=== PATIENT | female | born 1935 | race Caucasian/White ===

== ENCOUNTER 2018-09-06 10:59 | Emergency (ER) | payer OTHER ==
[2018-09-06 11:45] LABS: Absolute Monocytes 0.7 K/uL (0.1-1.3); Absolute Neutrophil 8.7 K/uL (1.8-8.0); Basophils % 0.4 % (0-1.3); Eosinophils % 0.7 % (0-4.4); Hematocrit 39.9 % (36.0-45.0); Lymphocytes % 9.7 % (15.3-44.8); MCH 31.3 pg (27.0-35.0); MCV 90.6 fL (80-100); MPV 8.3 fL (7.6-11.3); Monocytes % 6.2 % (3.3-12.3)
--- NOTE | 2018-09-06 12:31 | RAD REPORT ---
EXAM DESCRIPTION: CT - Head Brain Wo Cont - 09/06/2018 11:39 am CLINICAL HISTORY: TRAUMA Fall, head injury. COMPARISON: No comparisons TECHNIQUE: All CT scans are performed using dose optimization technique as appropriate and may inclu de automated exposure control or mA/KV adjustment according to patient size. 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 The paranasal sinuses and mastoids are clear. Right temporal craniectomy is present with hardware rig ht temporal craniotomy. IMPRESSION: No acute intracranial abnormality. 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
--- NOTE | 2018-09-06 12:45 | RAD REPORT ---
EXAM DESCRIPTION: RAD - Ankle Left 3 View - 09/06/2018 12:30 pm CLINICAL HISTORY: PAIN Fall, ankle pain COMPARISON: No comparisons FINDINGS: Diffuse osteopenia is seen. Lucency is seen in the posterior aspect of the calcaneus. This is doubtful to be clinically significant, however correlation with point tenderness in the posterior heel region is advised.
--- NOTE | 2018-09-06 12:53 | RAD REPORT ---
EXAM DESCRIPTION: RAD - Hand Left 3 View - 09/06/2018 12:30 pm CLINICAL HISTORY: PAIN History of fall COMPARISON: No comparisons FINDINGS: Diffuse osteopenia is seen. No acute fracture or dislocation seen.
--- NOTE | 2018-09-06 13:11 | ER ---
Nurse's Notes [facility] Name: Jazmine Winchester Age: 83 yrs Sex: Female : 1935 Arrival Date: 09/06/2018 Time: 11:02 Bed 19 Private MD: Diagnosis: Fall on same level from slipping, tripping and stumbling;Abrasion of left hand;Contusion of left hand Presentation: 09/06 11:02 Presenting complaint: Patient states: Tripped by cat while walking on concrete today at aj 0900. Patient reports falling onto bottom and scraping left 3 rd, 4 th, and 5 th knuckles on concrete. Band aids placed NURSING ADMIN. Denies hitting head or LOC. Patient denies pain. Care prior to arrival: None. Mechanism of Injury: Fall from standing position. Trauma event details: Injury occurred in the [facility], Injury occurred: at home. Injury occurred: September 06, 2018 Injury occurred at: 09:00. 11:02 Acuity: FRANCES 4 11:02 Method Of Arrival: EMS: [facility] 11:06 Transition of care: patient was not received from another setting of care. Onset of symptoms was September 06, 2018. Risk Assessment: Do you want to hurt yourself or someone else? Patient reports no desire to harm self or others. Initial Sepsis Screen: Does the patient meet any 2 criteria? No. Patient's initial sepsis screen is negative. Does the patient have a suspected source of infection? No. Patient's initial sepsis screen is negative. Trauma Activation: Not Applicable Physician: ED Physician; Name: ; Notified At: ; Arrived At: Physician: General Surgeon; Name: ; Notified At: ; Arrived At: Physician: Radiology; Name: ; Notified At: ; Arrived At: Physician: Respiratory; Name: ; Notified At: ; Arrived At: Physician: Lab; Name: ; Notified At: ; Arrived At: Historical: - Allergies: 11: No Known Allergies; aj - Home Meds: 11:07 Lisinopril Oral [Active]; aspirin 81 mg Oral TbEC 1 tab once daily [Active]; aj - PMHx: 11:07 Osteoporosis; Hypertension; CVA; Left side; aj - Immunization history: Last tetanus immunization: - up to date. - Social history:: Smoking status: Patient/guardian denies using tobacco. - Ebola Screening: : Patient negative for fever greater than or equal to 101.5 degrees Fahrenheit, and additional compatible Ebola Virus Disease symptoms Patient denies exposure to infectious person Patient denies travel to an Ebola-affected area in the 21 days before illness onset No symptoms or risks identified at this time. Screenin:02 Abuse screen: Denies threats or abuse. Denies injuries from another. Tuberculosis aj screening: No symptoms or risk factors identified. 14:09 Nutritional screening: No deficits noted. Fall Risk Fall in past 12 months (25 points). aj Primary Survey: 11:02 A: Airway: patent. Breathing/Chest: Respiratory pattern: regular, Respiratory effort: aj spontaneous, unlabored. Circulation: Skin color: pink, Skin temperature: warm, dry. Disability Alert. 12:00 Reassessment Airway Airway Patent Breathing/Chest Respiratory pattern Regular aj Respiratory effort Spontaneous Unlabored Circulation Color Black Disability Alert. Assessment: 11:02 General: Appears in no apparent distress. comfortable, Behavior is calm, cooperative, aj appropriate for age. Pain: Denies pain. Neuro: Level of Consciousness is awake, alert, obeys commands, Oriented to person, place, time, situation, Appropriate for age Weakness Left side weakness from previous CVA. Speech is normal. Respiratory: Airway is patent Respiratory effort is even, unlabored, Respiratory pattern is regular, symmetrical. Derm: Skin is intact, is healthy with good turgor, Skin is pink, warm \T\ dry. normal. Injury Description: Abrasion sustained to dorsal aspect of middle phalanx of left middle finger, dorsal aspect of middle phalanx of left ring finger and dorsal aspect of middle phalanx of left little finger. 12:30 Reassessment: Patient appears in no apparent distress at this time. No changes from aj previously documented assessment. Patient and/or family updated on plan of care and expected duration. Pain level reassessed. Patient is alert, oriented x 3, equal unlabored respirations, skin warm/dry/pink. Patient denies pain at this time. Vital Signs: 11:02 BP 126 / 58; Pulse 77; Resp 19; Temp 98.6; Pulse Ox 100% on R/A; Weight 65.77 kg; aj Height 5 ft. 2 in. (157.48 cm); 12:00 BP 123 / 61; Pulse 76; Resp 19; Pulse Ox 99% on R/A; aj 14:08 BP 127 / 79; Pulse 81; Resp 20; Pulse Ox 99% on R/A; aj 11:02 Body Mass Index 26.52 (65.77 kg, 157.48 cm) aj Milly Coma Score: 11:02 Eye Response: spontaneous(4). Verbal Response: oriented(5). Motor Response: obeys aj commands(6). Total: 15. Trauma Score (Adult): 11:02 Eye Response: spontaneous(1); Verbal Response: oriented(1); Motor Response: obeys aj commands(2); Systolic BP: > 89 mm Hg(4); Respiratory Rate: 10 to 29 per min(4); Sachse Score: 15; Trauma Score: 12 ED Course: 11:02 Patient arrived in ED. aj 11:02 Patient has correct armband on for positive identification. Bed in low position. Side aj rails up X 1. Adult w/ patient. 11:02 Patient maintains SpO2 saturation greater than 95% on room air. aj 11:04 Triage completed. aj 11:07 Patient placed in an exam room, on a stretcher, on pulse oximetry. aj 11:12 Sangeetha Ricketts FNP-C is PHCP. kb 11:12 Arash Alba MD is Attending Physician. kb 11:22 Kristi Blackwood, MOMO is Primary Nurse. aj 11:40 CT Head Brain wo Cont In Process Unspecified. EDMS 11:41 CT completed. Patient tolerated procedure well. Patient moved to CT. Patient moved back vr from CT. 12:29 X-ray completed. Portable x-ray completed in exam room. Patient tolerated procedure ml well. 12:31 Hand Left 3 View XRAY In Process Unspecified. EDMS 12:31 Ankle Left 3 View XRAY In Process Unspecified. EDMS 14:08 No provider procedures requiring assistance completed. Patient did not have IV access aj during this emergency room visit. Administered Medications: No medications were administered Intake: 14:09 PO: 0ml; Total: 0ml. aj Outcome: 13:10 Discharge ordered by . kb 14:08 Discharged to home ambulatory, with family. aj 14:08 Condition: good 14:08 Discharge instructions given to patient, family, Instructed on discharge instructions, follow up and referral plans. wound care, Demonstrated understanding of instructions, follow-up care, wound care. 14:09 Patient's length of stay was not longer than 2 hours. aj 14:09 Patient left the ED. aj Signatures: Dispatcher [employer] Sangeetha Chávez, LYDIA MUNOZ-Kristi Hameed, RN RN Andreia Boss Victoria vr
--- NOTE | 2018-09-06 13:11 | EDPHYS ---
Physician Documentation [facility] Name: Jazmine Winchester Age: 83 yrs Sex: Female : 1935 Arrival Date: 09/06/2018 Time: 11:02 Bed 19 Private MD: ED Physician Arash Alba HPI: 09/06 11:13 This 83 yrs old Female presents to ER via EMS with complaints of Fall Injury. kb 11:13 Details of fall: The patient fell from an upright position, while walking. Onset: The kb symptoms/episode began/occurred this morning. Associated injuries: The patient sustained left hand, abrasion, ecchymosis, swelling, left medial ankle, ecchymosis. Severity of symptoms: At their worst the symptoms were moderate, in the emergency department the symptoms are unchanged. The patient has not experienced similar symptoms in the past. The patient has not recently seen a physician. Pt reports she was walking out to get the paper, tripped over the cat and fell. Denies hitting head or LOC. Pt has residual left-sided deficits from previous CVA. . Historical: - Allergies: 11:07 No Known Allergies; aj - Home Meds: 11:07 Lisinopril Oral [Active]; aspirin 81 mg Oral TbEC 1 tab once daily [Active]; aj - PMHx: 11:07 Osteoporosis; Hypertension; CVA; Left side; aj - Immunization history: Last tetanus immunization: - up to date. - Social history:: Smoking status: Patient/guardian denies using tobacco. - Ebola Screening: : Patient negative for fever greater than or equal to 101.5 degrees Fahrenheit, and additional compatible Ebola Virus Disease symptoms Patient denies exposure to infectious person Patient denies travel to an Ebola-affected area in the 21 days before illness onset No symptoms or risks identified at this time. ROS: 13:07 Constitutional: Negative for fever, chills, and weight loss, Eyes: Negative for injury, kb pain, redness, and discharge, ENT: Negative for injury, pain, and discharge, Neck: Negative for injury, pain, and swelling, Cardiovascular: Negative for chest pain, palpitations, and edema, Respiratory: Negative for shortness of breath, cough, wheezing, and pleuritic chest pain, Abdomen/GI: Negative for abdominal pain, nausea, vomiting, diarrhea, and constipation, Back: Negative for injury and pain, : Negative for injury, bleeding, discharge, and swelling, MS/Extremity: Negative for injury and deformity, Neuro: Negative for headache, weakness, numbness, tingling, and seizure. 13:07 Skin: Positive for abrasion(s), ecchymosis, swelling, of the dorsal aspect of middle phalanx of left little finger and dorsal aspect of middle phalanx of left ring finger and dorsal aspect of middle phalanx of left middle finger. Exam: 13:07 Constitutional: This is a well developed, well nourished patient who is awake, alert, kb and in no acute distress. Head/Face: Normocephalic, atraumatic. Eyes: Pupils equal round and reactive to light, extra-ocular motions intact. Lids and lashes normal. Conjunctiva and sclera are non-icteric and not injected. Cornea within normal limits. Periorbital areas with no swelling, redness, or edema. ENT: Nares patent. No nasal discharge, no septal abnormalities noted. Tympanic membranes are normal and external auditory canals are clear. Oropharynx with no redness, swelling, or masses, exudates, or evidence of obstruction, uvula midline. Mucous membranes moist. Neck: Trachea midline, no thyromegaly or masses palpated, and no cervical lymphadenopathy. Supple, full range of motion without nuchal rigidity, or vertebral point tenderness. No Meningismus. Chest/axilla: Normal chest wall appearance and motion. Nontender with no deformity. No lesions are appreciated. Cardiovascular: Regular rate and rhythm with a normal S1 and S2. No gallops, murmurs, or rubs. Normal PMI, no JVD. No pulse deficits. Respiratory: Lungs have equal breath sounds bilaterally, clear to auscultation and percussion. No rales, rhonchi or wheezes noted. No increased work of breathing, no retractions or nasal flaring. Abdomen/GI: Soft, non-tender, with normal bowel sounds. No distension or tympany. No guarding or rebound. No evidence of tenderness throughout. Back: No spinal tenderness. No costovertebral tenderness. Full range of motion. MS/ Extremity: Pulses equal, no cyanosis. Neurovascular intact. Full, normal range of motion. 13:07 Skin: injury, abrasion(s), small abrasion noted, of the dorsal aspect of middle phalanx of left little finger and dorsal aspect of middle phalanx of left ring finger and dorsal aspect of middle phalanx of left middle finger, contusion(s), that are superficial, of the dorsal aspect of middle phalanx of left ring finger and dorsal aspect of middle phalanx of left middle finger. 13:07 Neuro: Exam negative for acute changes. Vital Signs: 11:02 BP 126 / 58; Pulse 77; Resp 19; Temp 98.6; Pulse Ox 100% on R/A; Weight 65.77 kg; aj Height 5 ft. 2 in. (157.48 cm); 12:00 BP 123 / 61; Pulse 76; Resp 19; Pulse Ox 99% on R/A; aj 14:08 BP 127 / 79; Pulse 81; Resp 20; Pulse Ox 99% on R/A; aj 11:02 Body Mass Index 26.52 (65.77 kg, 157.48 cm) aj Milly Coma Score: 11:02 Eye Response: spontaneous(4). Verbal Response: oriented(5). Motor Response: obeys aj commands(6). Total: 15. Trauma Score (Adult): 11:02 Eye Response: spontaneous(1); Verbal Response: oriented(1); Motor Response: obeys aj commands(2); Systolic BP: > 89 mm Hg(4); Respiratory Rate: 10 to 29 per min(4); Milly Score: 15; Trauma Score: 12 MDM: 11:12 Patient medically screened. kb 13:08 Data reviewed: vital signs, nurses notes. Data interpreted: Pulse oximetry: on room air kb is 100 %. Interpretation: normal. Counseling: I had a detailed discussion with the patient and/or guardian regarding: the historical points, exam findings, and any diagnostic results supporting the discharge/admit diagnosis, lab results, radiology results, the need for outpatient follow up, a family practitioner, to return to the emergency department if symptoms worsen or persist or if there are any questions or concerns that arise at home. 09/06 11:22 Order name: CBC with Diff; Complete Time: 11:52 kb 09/06 11:22 Order name: Basic Metabolic Panel; Complete Time: 11:55 kb 09/06 11:12 Order name: Hand Left 3 View XRAY; Complete Time: 13:06 kb 09/06 11:12 Order name: Ankle Left 3 View XRAY; Complete Time: 12:46 kb 09/06 11:22 Order name: CT Head Brain wo Cont; Complete Time: 12:41 kb Administered Medications: No medications were administered Disposition: 15:49 Co-signature as Attending Physician, Arash Alba MD. rn Disposition: 09/06/18 13:10 Discharged to Home. Impression: Fall on same level from slipping, tripping and stumbling, Abrasion of left hand, Contusion of left hand. - Condition is Stable. - Discharge Instructions: Hand Contusion, [id number], Abrasion, [id number], Fall Prevention in the Home, [id number]. - Medication Reconciliation Form, Thank You Letter, Antibiotic Education, Prescription Opioid Use form. - Follow up: Emergency Department; When: As needed; Reason: Worsening of condition. Follow up: Private Physician; When: 2 - 3 days; Reason: Recheck today's complaints, Continuance of care, Re-evaluation by your physician. Signatures: Dispatcher [employer] EDSangeetha Whittaker, TAMMY-C PRINCIPAL SYSTEMS ENGINEER-Kristi Hameed RN RN Arash Metcalf MD MD psych rn: (The following items were deleted from the chart) 13:10 13:10 09/06/2018 13:10 Discharged to Home. Impression: Fall on same level from kb slipping, tripping and stumbling; Abrasion of left hand. Condition is Stable. Forms are Medication Reconciliation Form, Thank You Letter, Antibiotic Education, Prescription Opioid Use. Follow up: Emergency Department; When: As needed; Reason: Worsening of condition. Follow up: Private Physician; When: 2 - 3 days; Reason: Recheck today's complaints, Continuance of care, Re-evaluation by your physician. kb 14:07 11:22 Urine Dipstick-Ancillary ordered. kb aj 14:09 13:10 09/06/2018 13:10 Discharged to Home. Impression: Fall on same level from aj slipping, tripping and stumbling; Abrasion of left hand; Contusion of left hand. Condition is Stable. Forms are Medication Reconciliation Form, Thank You Letter, Antibiotic Education, Prescription Opioid Use. Follow up: Emergency Department; When: As needed; Reason: Worsening of condition. Follow up: Private Physician; When: 2 - 3 days; Reason: Recheck today's complaints, Continuance of care, Re-evaluation by your physician. kb
== END 2018-09-06 14:09 | disposition home or self-care (01) ==
LOC: ER 10:59
DX: S60.512A Abrasion of left hand, initial encounter (principal); S60.222A Contusion of left hand, initial encounter; W18.09XA Striking against other object with subsequent fall, initial encounter; Y93.89 Activity, other specified; Y92.009 Unspecified place in unspecified non-institutional (private) residence as the place of occurrence of the external cause; Z79.82 Long term (current) use of aspirin; Z86.73 Personal history of transient ischemic attack (TIA), and cerebral infarction without residual deficits; I10 Essential (primary) hypertension
CPT/HCPCS: 36415; 70450; 80048; 85025; 99284

== ENCOUNTER 2021-03-16 08:33 | Inpatient (IN) | payer OTHER ==
--- NOTE | 2021-03-16 08:55 | RAD REPORT ---
EXAM DESCRIPTION: CT - Ct Stroke Brain Wo Cont - 03/16/2021 8:42 am CLINICAL HISTORY: SYNCOPE COMPARISON: Head Brain Wo Cont dated 09/06/2018 TECHNIQUE: Axial 5 millimeter thick images of the head were obtained without IV contrast. All CT scans are performed using dose optimization technique as appropriate and may include automated exposure control or mA/KV adjustment according to patient size. FINDINGS: No intracranial hemorrhage, mass, or cerebral edema. No acute cortical based infarction id entified. No cortical edema or sulcal effacement. There is a large area of gliosis or postoperative c hange involving substantial portion of the right temporal lobe and the right frontal lobe. Aneurysm c lip is present in the sylvian fissure region. Postsurgical changes are present to the lateral skull a t this level. Patient has underlying mild for age atrophy. Chronic ischemic changes are present. Calloway matter-white matter differentiation is preserved.Ventricles are in proportion to volume loss. Visualized portions of the mastoid air cells, paranasal sinuses, and orbits are unremarkable. Findings telephoned to Dr Rowland 8:50 a.m.. IMPRESSION: No CT evidence of acute intracranial process. Nonacute findings are detailed in the body of the report. No clear change from 2018.
--- NOTE | 2021-03-16 08:56 | RAD REPORT ---
EXAM DESCRIPTION: RAD - Chest Single View - 03/16/2021 8:50 am CLINICAL HISTORY: Stroke protocol chest film COMPARISON: None TECHNIQUE: AP portable chest image was obtained 03/16/2021 8:50 am . FINDINGS: Lungs are clear. Heart and vasculature are normal. Right hemidiaphragm elevation noted. Hi lar regions are within normal range. No measurable pleural effusion and no pneumothorax. No acute bon y abnormality seen. No acute aortic findings suspected. IMPRESSION: No acute cardiopulmonary process.
[2021-03-16] MEDS ORDERED: NA CHLORIDE 0.9% 1,000 ML ONE (09:16)
[2021-03-16 09:44] LABS: Amylase 57 U/L (25-115); BUN Blood Urea Nitrogen 18 mg/dL (7-18); Bicarbonate 22 mmol/L (21-32); Creatine Phosphokinase 72 U/L (26-192); Glucose Level 175 mg/dL (74-106); Potassium 3.5 mmol/L (3.5-5.1); Sodium Level 140 mmol/L (136-145); Troponin (Emerg Dept Use Only) < 0.02 ng/mL (0.0-0.045)
--- NOTE | 2021-03-16 10:01 | EDPHYS ---
Physician Documentation [facility] Name: Jazmine Winchester Age: 85 yrs Sex: Female : 1935 Arrival Date: 03/16/2021 Time: 08:36 Bed 2 Private MD: ED Physician Maki Rowland HPI: 03/16 09:27 This 85 yrs old Female presents to ER via Unassigned with complaints of ma2 Syncope. 09:27 The patient has experienced syncope. Onset: The symptoms/episode began/occurred ma2 suddenly, 1 hour(s) ago. Associated signs and symptoms: Pertinent positives: dizziness, Pertinent negatives: blurred vision, confusion, diarrhea, headache. The patient has experienced a previous episode. hx of stroke, had syncope 1 hour ago, and was aphasic for 30 min and now she is back to normal . Historical: - Allergies: 09:32 No Known Allergies; bp - Home Meds: 09:32 aspirin 81 mg Oral TbEC 1 tab once daily [Active]; lisinopril Oral [Active]; bp - PMHx: 09:32 CVA; Left side; Hypertension; Osteoporosis; bp - Immunization history:: Adult Immunizations up to date. - Social history:: Smoking status: Patient denies any tobacco usage or history of. - Family history:: not pertinent. ROS: 09:27 Constitutional: Negative for fever, chills, and weight loss. ma2 09:27 All other systems are negative. Exam: 09:27 Abdomen/GI: Exam negative for acute changes. ma2 09:27 Constitutional: This is a well developed, well nourished patient who is awake, alert, and in no acute distress. Head/Face: Normocephalic, atraumatic. Chest/axilla: Normal chest wall appearance and motion. Nontender with no deformity. No lesions are appreciated. Cardiovascular: Regular rate and rhythm with a normal S1 and S2. No gallops, murmurs, or rubs. Normal PMI, no JVD. No pulse deficits. Respiratory: Lungs have equal breath sounds bilaterally, clear to auscultation and percussion. No rales, rhonchi or wheezes noted. No increased work of breathing, no retractions or nasal flaring. Abdomen/GI: Soft, non-tender, with normal bowel sounds. No distension or tympany. No guarding or rebound. No evidence of tenderness throughout. Skin: Warm, dry with normal turgor. Normal color with no rashes, no lesions, and no evidence of cellulitis. MS/ Extremity: Pulses equal, no cyanosis. Neurovascular intact. Full, normal range of motion. Neuro: Awake and alert, GCS 15, oriented to person, place, time, and situation. Cranial nerves II-XII grossly intact. Motor strength 5/5 in both rightl extremities. left weakness + however residual from prior stroke. Sensory grossly intact. gait not tested Vital Signs: 08:40 BP 113 / 79; Pulse 75; Resp 16; Temp 98; Pulse Ox 94% on R/A; bp 09:40 BP 100 / 58; Pulse 69; Resp 15; Pulse Ox 96% on R/A; bp 10:10 BP 116 / 61; Pulse 65; Resp 19; Pulse Ox 99% ; bp 12:00 BP 127 / 78; Pulse 62; Resp 16; Pulse Ox 97% ; bp 13:00 BP 119 / 59; Pulse 58; Resp 14; Pulse Ox 98% ; bp NIH Stroke Scale Scores: 08:40 NIHSS Score: 11 bp MDM: 09:04 Patient medically screened. ma2 09:27 Differential Diagnosis: cardiac arrhythmia, drug effect, emotional response, idiopathic ma2 syncope, vasovagal episode. 09:58 Data reviewed: vital signs, nurses notes, EMS record. Counseling: I had a detailed ma2 discussion with the patient and/or guardian regarding: the historical points, exam findings, and any diagnostic results supporting the discharge/admit diagnosis, the presence of at least one elevated blood pressure reading (>120/80) during this emergency department visit, the need for further work-up and treatment in the hospital. Response to treatment: the patient's symptoms have markedly improved after treatment. 10:01 ED course: stroke alert was called initially on this patient as she was aphasic after ma2 the syncope, however patient is awake alert talking and rapidly improving symptoms.. discussed with dr. christie, and dr. gutierrez. 10:02 ED course: ct head unremarkable.. patient is not a tpa canditate d/t rapidly improving ma2 sympotms . 03/16 08:39 Order name: Troponin (emerg Dept Use Only); Complete Time: 09:55 ma2 03/16 08:39 Order name: CPK; Complete Time: 09:55 [facility] 03/16 08:39 Order name: Amylase, Serum; Complete Time: 09:55 [facility] 03/16 08:39 Order name: Basic Metabolic Panel; Complete Time: 09:55 hi03/16 08:39 Order name: CBC with Diff [facility] 03/16 08:39 Order name: Protime (+inr) [facility] 03/16 08:39 Order name: Ptt, Activated [facility] 03/16 09:01 Order name: COVID-19 : Document "Date of Symptom Onset" if Symptomatic. hi03/16 09:02 Order name: [facility] 03/16 10:11 Order name: CKMB Creatine Kinase MB [facility] 03/16 10:11 Order name: CKMB Creatine Kinase MB [facility] 03/16 10:11 Order name: Creatine Phosphokinase [facility] 03/16 10:11 Order name: Creatine Phosphokinase [facility] 03/16 10:11 Order name: Lipid Profile [facility] 03/16 08:39 Order name: CT Stroke Brain w/o Contrast; Complete Time: 09:55 [facility] 03/16 08:39 Order name: Stroke CXR 1 View; Complete Time: 09:55 [facility] 03/16 08:39 Order name: EKG; Complete Time: 08:40 [facility] 03/16 08:39 Order name: Accucheck; Complete Time: 09:12 [facility] 03/16 08:39 Order name: Cardiac monitoring; Complete Time: 08:53 [facility] 03/16 08:39 Order name: EKG - Nurse/Tech; Complete Time: 09:12 [facility] 03/16 08:39 Order name: IV Saline Lock; Complete Time: 08:52 [facility] 03/16 10:11 Order name: NPO [facility] 03/16 10:11 Order name: NPO [facility] 03/16 10:11 Order name: Lipid Profile [facility] 03/16 10:11 Order name: Troponin I [facility] 03/16 10:11 Order name: Troponin I [facility] 03/16 10:12 Order name: NPO [facility] 03/16 11:11 Order name: SARS-COV-2 RT PCR [facility] 03/16 08:39 Order name: Labs collected and sent; Complete Time: 09:12 [facility] 03/16 08:39 Order name: NPO; Complete Time: 08:51 03/16 08:39 Order name: O2 Per Protocol; Complete Time: 08:51 03/16 08:39 Order name: O2 Sat Monitoring; Complete Time: 08:51 03/16 08:39 Order name: Stroke Swallow Screen; Complete Time: 10:10 2 03/16 08:44 Order name: Urine Dipstick-Ancillary (obtain specimen); Complete Time: 08:51 ma Administered Medications: 09:00 Drug: NS 0.9% 1000 ml Route: IV; Rate: 1 bolus; Site: right antecubital; bp 10:30 Follow up: IV Status: Completed infusion; IV Intake: 1000ml bp 10:10 Drug: NS 0.9% 1000 ml Route: IV; Rate: 1 bolus; Site: right antecubital; bp 10:30 Follow up: IV Status: Completed infusion; IV Intake: 1000ml bp Disposition: 03/16/21 10:00 Hospitalization ordered by Jarred Gutierrez for Inpatient Admission. Preliminary diagnosis are Syncope and collapse, Altered mental status, unspecified. - Bed requested for Telemetry/MedSurg (Inpatient). - Status is Inpatient Admission. bp - Condition is Stable. - Problem is new. - Symptoms are unchanged. NIH Stroke Scale - NIH Stroke Score Date: 03/16/2021 Time: 08:40 Total Score = 11 1a. Level of Consciousness (LOC) - 1(Not Alert) 1b. Level of Consciousness (LOC) (Year \\T\\ Age) - 2(Neither) 1c. LOC Commands (Open \\T\\ Closes Eyes/Machine Setter Supervisor) - 0(Both) 2. Best Gaze (Lateral Gaze Paresis) - 0(Normal) 3. Visual Field Loss - 0(No visual loss) 4. Facial Palsy - 0(Normal) 5a. Left Arm: Motor (10-second hold) - 3(No effort against gravity) 5b. Right Arm: Motor (10-second hold) - 1(Drift) 6a. Left Leg: Motor (5-second hold - always test supine) - 3(No effort against gravity) 6b. Right Leg: Motor (5-second hold - always test supine) - 1(Drift) 7. Limb Ataxia (finger/nose \\T\\ heel/liao - test with eyes open) - 0(Absent) 8. Sensory Loss (pinprick arms/legs/face) - 0(Normal) 9. Best Language: Aphasia (description/naming/reading) - 0(No aphasia) 10. Dysarthria (speech clarity - read or repeat words) - 0(Normal) 11. Extinction and Inattention (visual/tactile/auditory/spatial/personal) - 0(No abnormality) Initials: bp Signatures: Dispatcher [employer] EDMS Aby Braun RN RN dw Thompson, Moriah mt Peltier, Brian, RN RN bp Maki Rowland MD MD ma2 Corrections: (The following items were deleted from the chart) 12:01 10:00 Hospitalization Ordered by Jarred Gutierrez MD for Inpatient Admission. dw Preliminary diagnosis is Syncope and collapse; Altered mental status, unspecified. Bed requested for Telemetry/MedSurg (Inpatient). Status is Inpatient Admission. Condition is Stable. Problem is new. Symptoms are unchanged. ma2 13:47 12:01 03/16/2021 10:00 Hospitalization Ordered by Jarred Gutierrez MD for Inpatient bp Admission. Preliminary diagnosis is Syncope and collapse; Altered mental status, unspecified. Bed requested for Telemetry/MedSurg (Inpatient). Status is Inpatient Admission. Condition is Stable. Problem is new. Symptoms are unchanged. dw
--- NOTE | 2021-03-16 10:01 | ER ---
Nurse's Notes [facility] Name: Jazmine Winchester Age: 85 yrs Sex: Female : 1935 Arrival Date: 03/16/2021 Time: 08:36 Bed 2 Private MD: Diagnosis: Syncope and collapse;Altered mental status, unspecified Presentation: 03/16 08:40 Chief complaint: EMS states: SYNCOPE WITH SUBSEQUENT AMS AT 0730. Coronavirus screen: bp At this time, the client does not indicate any symptoms associated with coronavirus-19. Ebola Screen: No symptoms or risks identified at this time. Initial Sepsis Screen: Does the patient meet any 2 criteria? Altered Mental Status. No. Patient's initial sepsis screen is negative. Does the patient have a suspected source of infection? No. Patient's initial sepsis screen is negative. Risk Assessment: Do you want to hurt yourself or someone else? Patient reports no desire to harm self or others. Onset of symptoms was March 16, 2021 at 07:30. Care prior to arrival: IV initiated. 20 GA, Glucose check: 136. 08:40 Method Of Arrival: EMS: [facility] bp 08:40 Acuity: FRANCES 2 bp Triage Assessment: 09:15 General: Appears in no apparent distress. comfortable, obese, Behavior is cooperative, bp appropriate for age, PT RETURNED FROM CT. 09:15 Pain: Denies pain. EENT: No deficits noted. Neuro: Level of Consciousness is awake, bp alert, obeys commands, Reports a syncopal episode. Cardiovascular: Rhythm is sinus rhythm. Respiratory: Breath sounds are coarse. GI: No signs and/or symptoms were reported involving the gastrointestinal system. : No signs and/or symptoms were reported regarding the genitourinary system. Derm: No deficits noted. Musculoskeletal: Circulation, motion, and sensation intact. Range of motion: intact in all extremities. Historical: - Allergies: 09:32 No Known Allergies; bp - Home Meds: 09:32 aspirin 81 mg Oral TbEC 1 tab once daily [Active]; lisinopril Oral [Active]; bp - PMHx: 09:32 CVA; Left side; Hypertension; Osteoporosis; bp - Immunization history:: Adult Immunizations up to date. - Social history:: Smoking status: Patient denies any tobacco usage or history of. - Family history:: not pertinent. Screenin:36 Abuse screen: Denies threats or abuse. Denies injuries from another. Nutritional bp screening: No deficits noted. Tuberculosis screening: No symptoms or risk factors identified. Fall Risk Gait- Mental Status- Oriented to own ability (0 pts). Assessment: 09:36 General: SEE TRIAGE NOTE. PT RETURNED FROM CT. Neuro: Level of Consciousness is awake, bp obeys commands, lethargic, Oriented to person, place. Cardiovascular: Rhythm is sinus rhythm. 09:40 Reassessment: PT LEVEL OF CONSCIOUSNESS IMPROVED, PT NOW VERBAL, AOx2, FOLLOWING bp COMMANDS. 10:10 Reassessment: ADMIT INITIATED. bp 10:27 Reassessment: SECOND RECOLLECT REQUESTED BY LAB. PHLEBOTOMY CONTACTED FOR BLOOD bp SPECIMEN. Vital Signs: 08:40 BP 113 / 79; Pulse 75; Resp 16; Temp 98; Pulse Ox 94% on R/A; bp 09:40 BP 100 / 58; Pulse 69; Resp 15; Pulse Ox 96% on R/A; bp 10:10 BP 116 / 61; Pulse 65; Resp 19; Pulse Ox 99% ; bp 12:00 BP 127 / 78; Pulse 62; Resp 16; Pulse Ox 97% ; bp 13:00 BP 119 / 59; Pulse 58; Resp 14; Pulse Ox 98% ; bp NIH Stroke Scale Scores: 08:40 NIHSS Score: 11 bp ED Course: 08:36 Patient arrived in ED. iw 08:38 Maki Rowland MD is Attending Physician. ma2 08:42 CT Stroke Brain w/o Contrast In Process Unspecified. EDMS 08:49 Stroke CXR 1 View In Process Unspecified. EDMS 08:50 X-ray completed. Portable x-ray completed in exam room. Patient tolerated procedure sw well. 08:51 Skip Laws, MOMO is Primary Nurse. bp 09:31 Triage completed. bp 09:36 Arm band placed on. bp 09:36 Patient has correct armband on for positive identification. Bed in low position. Call bp light in reach. Side rails up X2. 09:36 Maintain EMS IV. Dressing intact. Good blood return noted. Site clean \\T\\ dry. Gauge \\T\\ bp site: 20 GAUGE R AC. 10:00 Jarred Dodd MD is Hospitalizing Provider. ma2 10:09 COVID-19 : Document "Date of Symptom Onset" if Symptomatic. Sent. bp 13:08 No provider procedures requiring assistance completed. Patient admitted, IV remains in bp place. Administered Medications: 09:00 Drug: NS 0.9% 1000 ml Route: IV; Rate: 1 bolus; Site: right antecubital; bp 10:30 Follow up: IV Status: Completed infusion; IV Intake: 1000ml bp 10:10 Drug: NS 0.9% 1000 ml Route: IV; Rate: 1 bolus; Site: right antecubital; bp 10:30 Follow up: IV Status: Completed infusion; IV Intake: 1000ml bp Intake: 10:30 IV: 1000ml; Total: 1000ml. bp 10:30 IV: 1000ml; Total: 2000ml. bp Outcome: 10:00 Decision to Hospitalize by Provider. ma2 13:07 Admitted to Tele accompanied by tech, family with patient, via wheelchair, room 430, bp with chart, Report called to ALFONZO BARR 13:07 Condition: stable 13:07 Instructed on the need for admit. 13:47 Patient left the ED. bp NIH Stroke Scale - NIH Stroke Score Date: 03/16/2021 Time: 08:40 Total Score = 11 1a. Level of Consciousness (LOC) - 1(Not Alert) 1b. Level of Consciousness (LOC) (Year \\T\\ Age) - 2(Neither) 1c. LOC Commands (Open \\T\\ Closes Eyes/Splitting Machine Operator) - 0(Both) 2. Best Gaze (Lateral Gaze Paresis) - 0(Normal) 3. Visual Field Loss - 0(No visual loss) 4. Facial Palsy - 0(Normal) 5a. Left Arm: Motor (10-second hold) - 3(No effort against gravity) 5b. Right Arm: Motor (10-second hold) - 1(Drift) 6a. Left Leg: Motor (5-second hold - always test supine) - 3(No effort against gravity) 6b. Right Leg: Motor (5-second hold - always test supine) - 1(Drift) 7. Limb Ataxia (finger/nose \\T\\ heel/liao - test with eyes open) - 0(Absent) 8. Sensory Loss (pinprick arms/legs/face) - 0(Normal) 9. Best Language: Aphasia (description/naming/reading) - 0(No aphasia) 10. Dysarthria (speech clarity - read or repeat words) - 0(Normal) 11. Extinction and Inattention (visual/tactile/auditory/spatial/personal) - 0(No abnormality) Initials: bp Signatures: Dispatcher [employer] Araceli Kaminski, Shannon Pimentel RN, Brian, RN RN Maki Christian MD MD ma2
[2021-03-16] MEDS: NA CHLORIDE 0.9% 1,000 ML IV SCH ×2 (13:55→23:18)
[2021-03-16 14:29] VITALS: BMI 27.6
[2021-03-16 16:13] LABS: Absolute Lymphocytes (CBC) 1.4 K/uL (0.7-4.9); Basophils % 0.5 % (0-1.3); Hematocrit 39.2 % (36.0-45.0); Lymphocytes % 11.2 % (15.3-44.8); MPV 8.1 fL (7.6-11.3); RBC Red Blood Cell Count 4.39 M/uL (3.86-4.86)
[2021-03-16 17:18] LABS: Protime INR 0.93
[2021-03-16] MEDS ORDERED: ASPIRIN EC 81 MG TAB PO ONE (21:03)
[2021-03-16] MEDS: ATORVASTATIN 80 MG TAB PO SCH (21:39)
--- NOTE | 2021-03-16 22:42 | CON ---
Reason For Consultation: Consultation called because of passing out. History Of Present Illness: Ms. Winchester is an 85-year-old right-handed patient with a hist ory of a right hemispheric stroke with left-sided persistent paresis that is [id number] in natu re of the left arm, face, and leg, who comes to [facility] after a witnessed episode of sync ope with seizure-like activity and the event was witnessed by the patient's son. He said while looki ng at her, she was eating. She suddenly stopped the activity and began to stare. She was sitting in a chair and her arms and legs extended stiffly. Her eyes were open, not rolled or turning to 1 side or the other, and she slid down and he was able to assist her to the floor. She remained unresponsi ve for some time until the [facility] got there, at least perhaps 5 minutes or maybe a little longer. As she regained awareness, she remained confused for another 20 minutes. She did n ot have tongue biting or bowel or bladder loss and no obvious tonic or clonic activity, just stiffnes s. The patient herself says she remembers eating and then being in an ambulance. Has no memory of t he episode. At [facility], her head CT scan showed no acute ischemic or hemorrhagic change. Her chest x-ray showed no acute cardiopulmonary abnormalities. Laboratory studies showed a slightl y elevated white blood cell count of 12.7 with 84% neutrophils. Coagulation panel essentially unrema rkable. Basic metabolic panel showed a glucose of 175, but did go down to 79. Otherwise completely normal creatinine, sodium, glucose, carbon dioxide, BUN. Calcium normal. COVID-19 was negative. Si nce admission, she has had no additional episodes. 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 Allergies: NO KNOWN DRUG ALLERGIES. Medications: At home; aspirin 81 mg daily, lisinopril daily. Social History: No alcohol, tobacco, or IV drug use. Family History: Noncontributory. Review of Systems: No recent fevers, chills, nausea, vomiting, myalgias, arthralgias, headaches, weight change, rash, ps ychiatric complaints. No gastrointestinal or genitourinary complaints. Physical Examination: Vital Signs: Blood pressure 129/61, pulse of 60, respiratory rate 16, temperature 97.0, and saturati on 98% on room air. Weight 141 pounds, height 5 feet, BMI 27.7. General: Ms. Winchester is resting in the gurney, about to go upstairs to her floor on the fourth floor . HEENT: She is normocephalic, atraumatic. Sclerae anicteric. Oropharynx is pink and moist. Neck: Supple. Chest: Clear. Heart: Regular. Extremities: Show no edema, cyanosis, or clubbing. Neurologic: She has slight decreased to the left face with good excursions on smiling. Otherwise, s light decreased touch in the left face and otherwise intact cranial nerves. Motor examination in the left upper extremity; she has at the hand around 3/5 with the finger director staffing around 2, approximately th e biceps, triceps, and deltoid around 3 to 3+/5. Lower extremity on the left; she is around for 3 to 4/5, proximally distally. In the right side, upper and lower extremity 5/5 strength. Sensory exam decreased to light touch temperature in the left upper and lower versus the right upper and lower ext remity. Coordination, she does have some dysmetria noted in the left upper extremity and also slight ly so in the left lower extremity, but intact on the right side. She will be ambulated with the [facility] therapist and when she is on the floor. Assessment: Ms. Winchester is an 85-year-old patient with a right hemispheric stroke, more chronic. Ervin marroquin does have a clearly outlined seizure-like activity as per her son who witnessed the event, possibly related to the stroke that she had in the past. She should be placed on antiepileptic medications a t this point. 1.Recommend Keppra minimal of 250 mg twice daily. She may have a half load of 500 mg IV, then 250 b .i.d. 2.She should have a diary of her events. 3.Continue with all of the medications as per primary team. 4.She may be discharged home and follow up with Dr. Jovel in clinic 1 month later. She may have a blood Keppra levels at that time. ELISA/MODL Voice ID: [id number] Report ID: [id number]
[2021-03-17 04:42] LABS: CKMB Creatine Kinase MB 4.5 ng/mL (1.0-3.6); Troponin I 0.05 ng/mL (0.0-0.045)
--- NOTE | 2021-03-17 06:12 | HP ---
Date of Admission: 03/16/2021 Chief Complaint: I passed out. History Of Present Illness: This is an 85-year-old, very pleasant female patient who lives at home w ith her son and [id number], was sitting at the dining table this morning and son had left her br eakfast in front of her and he left the room to go out in the yard to do something, and within short time, he came back. When he came back, he found out that the patient was unresponsive, sitting in th e chair, and her eyes were twitching, but she was not responding to any verbal commands. He also gulshan cribes that her entire body was very stiff, but there was no jerking movements. He immediately mejia d 911 as he was concerned about stroke. He noted some saliva drooling out of the corner of mouth on the right side. There was no vomiting or incontinence. The patient did not have any fall. Patient was brought into emergency room via ambulance, and while she was on her way to the emergency room, alida marroquin woke up in ambulance and started communicating and answering questions. When I saw her this dorian g. She denies any headache. No other specific complaints. She answers questions, but she is slow t o respond and not back to her normal baseline yet. She did swallow well and had her dinner this even ing without any difficulties. Neurology consultation from Dr. Jovel was requested, and Dr. Herrmann ll has evaluated her after her hospital presentation today. Review of Systems: MANAGER INTEGRATED as mentioned above. All other systems reviewed and negative. Allergies: NO KNOWN ALLERGIES. Medications: Atorvastatin 20 mg daily in evening, aspirin 81 mg daily, hydrochlorothiazide 12.5 mg d aily in morning, ibandronic acid 150 mg once a month, lisinopril 10 mg daily in evening. Past Medical History: Significant for prior history of stroke with left-sided hemiparesis, hypertens ion, hyperlipidemia, osteoarthritis at multiple sites, leg edema, osteoporosis. Past Surgical History: Tonsillectomy, adenoidectomy, cholecystectomy, tubal ligation. Family History: Father at Alzheimer disease. Mother had asthma, osteoporosis, history of blood clot, TIA, anemia. Brother also had blood clot. Social History: Negative for smoking and alcohol use. Physical Examination: Vital Signs: The lowest blood pressure in emergency room was 100/58. Last vital signs are blood pre ssure 136/61, pulse 97, oxygen saturation 97%, pulse 62, respiratory rate 16, height 5 feet, weight 1 41 pounds. General: Awake, alert, oriented, not in distress. HEENT: Head atraumatic, normocephalic. Conjunctivae nonerythematous. Sclerae white. Mouth, no thr ush or edema noted. Ears/Nose, no mass, lesion, discharge noted. Neck: Supple. No JVD, lymph nodes, bruit, thyromegaly noted. Lungs: Bilateral good equal air entry. Clear to auscultation. No rhonchi. No rales. Heart: Normal heart sounds, no murmur or gallop. Abdomen: Soft, bowel sounds normal. No guarding, rigidity, tenderness, mass, hepatosplenomegaly, dis tention, or bruit noted. Extremities: No leg edema. No calf tenderness. Skin: No rash, ulcer, cellulitis. Lymphatics: No lymph node enlargement in neck, supraclavicular, infraclavicular region. Neuro: Left-sided hemiparesis. Chest: Unremarkable. External Genitalia: Deferred. Rectal: Deferred. Laboratory Data: Sodium 140, potassium 3.5, chloride 106, bicarb 22, BUN 18, creatinine 1.17, glucos e 175. Troponin less than 0.02. White count 12.7, hemoglobin 13.1, platelets 264. COVID-19 test ne gative. CAT scan of the head negative for any acute intracranial changes. Chest x-ray no acute intr athoracic changes. Impression: 1.Syncope. 2.Rule out transient ischemic attack. 3.Rule out seizure. 4.Stroke with left-sided hemiparesis. 5.Hypertension. 6.Hyperlipidemia. 7.Hypokalemia. 8.Osteoarthritis, multiple sites. 9.Osteoporosis. Plan: Admit patient to hospital for further evaluation and management of this problem. Patient is a ppropriate for inpatient and is expected to spend 2 midnights in hospital. We will continue home med ications per order. Fall precaution was ordered. We will follow up with Dr. Jovel from Neurology . We will consult Physical Therapy and Occupational Therapy tomorrow. Continue current diet. We wi ll get an MRI and EEG done tomorrow. We will go ahead and continue her aspirin and Plavix and folic acid and high dose statin will be given. We will see her tomorrow for followup. Plan of treatment d iscussed with the patient and her family members at bedside. EMMA/KELY Voice ID: [id number]
[2021-03-17 08:29] LABS: Albumin 3.1 g/dL (3.4-5.0); Bilirubin Direct 0.2 mg/dL (0-0.2); Bilirubin Total 0.8 mg/dL (0.2-1.0); Protein, Total 5.7 g/dL (6.4-8.2)
--- NOTE | 2021-03-17 08:35 | RAD REPORT ---
EXAM DESCRIPTION: MRI - Brain W/Wo Cont - 03/17/2021 8:17 am CLINICAL HISTORY: Syncope COMPARISON: head CT March 16, 2021 TECHNIQUE: Axial, sagittal, and coronal magnetic images of the brain were obtained. 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 Diffusion-weighted/ ADC mapping sequences do not demonstrate evidence of an acute infarction. No abnormal enhancement within the brain is seen. An extra-axial fluid collection is not noted. Fluid within the sinuses/mastoids is not seen IMPRESSION: No acute intracranial abnormality displayed
--- NOTE | 2021-03-17 08:37 | RAD REPORT ---
EXAM DESCRIPTION: MRI - MRA Neck W/Wo Cont - 03/17/2021 8:19 am CLINICAL HISTORY: Syncope COMPARISON: None. TECHNIQUE: Magnetic resonance angiogram of the neck was performed. 14 cc MultiHance was administered intravenously. 3D MIPS reconstruction performed FINDINGS: Mild plaque within the common carotid, internal carotid and external carotid arteries. The vertebral arteries are codominant without visualization of an abnormality. No high-grade stenosis. No aneurysm seen IMPRESSION: Mild plaque within the carotid arteries NASCET criteria used. Mild 0-49% stenosis Moderate 50-69% stenosis Severe 70-99% stenosis
--- NOTE | 2021-03-17 08:41 | RAD REPORT ---
EXAM DESCRIPTION: MRI - MRA Head Wo Cont - 03/17/2021 8:16 am CLINICAL HISTORY: Syncope COMPARISON: None. TECHNIQUE: Magnetic resonance angiogram was performed. 3D MIPS reconstruction performed FINDINGS: Evaluation of portions of the right middle cerebral artery limited secondary to artifact f rom an aneurysm repair. Mild narrowing of portions of the right posterior cerebral artery probably chronic. The remainder of the anterior cerebral, middle cerebral, posterior cerebral, distal internal carotid and basilar arteries do not demonstrate a significant stenosis. 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
--- NOTE | 2021-03-17 09:01 | RAD REPORT ---
EXAM DESCRIPTION: USCarotid Artery Bilateral03/17/2021 8:43 am CLINICAL HISTORY: syncope COMPARISON: None FINDINGS: The velocity of the right internal carotid artery equals 61 cm/sec. The right ICA/CCA rati o 0.8 The velocity of the left internal carotid artery equals 74 cm/sec. The left ICA/CCA ratio 1.2 Mild plaque is present within the carotid arteries. The vertebral arteries demonstrate antegrade flow IMPRESSION: Mild plaque within the carotid arteries without evidence of a hemodynamically significan t stenosis NASCET criteria used. Mild 0-49% stenosis Moderate 50-69% stenosis Severe 70-99% stenosis
[2021-03-17] MEDS: CLOPIDOGREL 75 MG TABLET PO SCH (09:05)
[2021-03-17] MEDS: FOLIC ACID 1 MG TABLET PO SCH (09:05)
[2021-03-17] MEDS: ASPIRIN EC 81 MG TAB PO SCH (09:05)
[2021-03-17] MEDS: lisinopriL 5 MG TAB PO SCH (09:05)
[2021-03-17] MEDS: NA CHLORIDE 0.9% 1,000 ML IV SCH ×2 (09:08→19:49)
[2021-03-17] MEDS: levETIRAcetam 500 MG TAB PO SCH ×2 (09:13→19:49)
--- NOTE | 2021-03-17 13:07 | ECHO ---
HEIGHT: 5 ft 0 in WEIGHT: 141 lb 9.6 oz DATE OF STUDY: 03/17/[address]: Jarred Dodd MD 2-DIMENSIONAL: YES M.MODE: YES DOPPLER: YES COLOR FLOW: YES TDS: NO PORTABLE: NO DEFINITY: NO BUBBLE STUDY: NO DIAGNOSIS: SYNCOPE CARDIAC HISTORY: CATHERIZATION: NO SURGERY: NO PROSTHETIC VALVE: NO PACEMAKER: NO MEASUREMENTS (cm) DIASTOLIC (NORMALS) SYSTOLIC (NORMALS) IVSd 0.9 (0.6-1.2) LA Diam 2.3 (1.9-4.0) LVEF 63% LVIDd 3.6 (3.5-5.7) LVIDs 2.4 (2.0-3.5) %FS 33% LVPWd 1.0 (0.6-1.2) Ao Diam 2.9 (2.0-3.7) 2 DIMENSIONAL ASSESSMENT: RIGHT ATRIUM: NORMAL LEFT ATRIUM: NORMAL RIGHT VENTRICLE: NORMAL LEFT VENTRICLE: NORMAL TRICUSPID VALVE: NORMAL MITRAL VALVE: NORMAL PULMONIC VALVE: NORMAL AORTIC VALVE: SCLEROSIS PERICARDIAL EFFUSION: NONE AORTIC ROOT: NORMAL LEFT VENTRICULAR WALL MOTION: NORMAL DOPPLER/COLOR FLOW: MILD AORTIC REGURGITATION. COMMENTS: NORMAL LEFT VENTRICULAR SIZE AND FUNCTION. AORTIC SCLEROSIS WITH NO STENOSIS. MILD AORTIC REGURGITATION. TECHNOLOGIST: Estrellita TEE
[2021-03-17] MEDS: ATORVASTATIN 80 MG TAB PO SCH (19:49)
[2021-03-17 21:26] VITALS: O2SAT 97
--- NOTE | 2021-03-18 00:25 | PN ---
Date of Progress Note: 03/17/2021 Subjective: The patient was seen this morning for followup. She was happy, smiling, communicating l ot better than yesterday evening. Denies any new complaints. She slept well overnight. Objective: Vital signs: Reviewed. HEENT: Unremarkable. Lungs: Clear to auscultation. Heart: Sounds normal. Abdomen: Soft. Bowel sounds normal. No guarding, rigidity, tenderness, or distention. Extremities: No leg edema. Laboratory Data: CPK this morning 1253, troponin 0.05, total cholesterol was 127, triglycerides 73, LDL 59, HDL 53. Carotid Doppler done today shows bilateral carotid artery plaquing. No evidence of any stenosis. MRI of the brain was negative for any stroke. MRA of the brain was negative for any s tenosis or aneurysm. Echocardiogram was unremarkable. Impression: 1.Probable seizure. 2.Stroke with left-sided hemiparesis. 3.Hypertension. 4.Rhabdomyolysis secondary to #1. Plan: The patient's CPK has gone up and in presence of clinical picture very likely the patient is h aving rhabdomyolysis from probable seizure episode that happened yesterday requiring this hospitaliza tion. We will go ahead and give her IV fluid. Repeat blood work tomorrow morning including her CPK, monitor her renal function, and physical therapy and occupational therapy to work with the patient. As all the test results discussed with the patient's family today, I will see her tomorrow for semla burger. EEG was ordered, but it was not done as we do not have any boiler control technician available the entire week, so EEG will need to be done on outpatient basis with help of neurologist and maddy marroquin discussed with family. EMMA/MODL Voice ID: [id number] Report ID: [id number]
[2021-03-18 04:25] LABS: Absolute Lymphocytes (CBC) 2.1 K/uL (0.7-4.9); Basophils % 0.5 % (0-1.3); Hematocrit 34.2 % (36.0-45.0); Lymphocytes % 23.8 % (15.3-44.8); MPV 8.3 fL (7.6-11.3); RBC Red Blood Cell Count 3.86 M/uL (3.86-4.86)
[2021-03-18 04:37] LABS: CKMB Creatine Kinase MB 2.6 ng/mL (1.0-3.6); Potassium 3.1 mmol/L (3.5-5.1); Troponin I 0.02 ng/mL (0.0-0.045)
[2021-03-18] MEDS: NA CHLORIDE 0.9% 1,000 ML IV SCH ×2 (04:57→14:00)
[2021-03-18] MEDS: CLOPIDOGREL 75 MG TABLET PO SCH (08:27)
[2021-03-18] MEDS: levETIRAcetam 500 MG TAB PO SCH (08:27)
[2021-03-18] MEDS: lisinopriL 5 MG TAB PO SCH (08:27)
[2021-03-18] MEDS: FOLIC ACID 1 MG TABLET PO SCH (08:28)
[2021-03-18] MEDS: ASPIRIN EC 81 MG TAB PO SCH (08:28)
[2021-03-18 12:03] VITALS: TEMP 97.6
--- NOTE | 2021-03-18 16:34 | EKG ---
Test Date: 2021-03-16 Test Time: 09:09:29 Hammer Setter: BP MEASUREMENT RESULTS: Intervals: Rate: 71 HI: 168 QRSD: 134 QT: 452 QTc: 491 [place]: P: 49 HI: 168 QRS: -15 T: -3 INTERPRETIVE STATEMENTS: Normal sinus rhythm Right bundle branch block T wave abnormality, consider lateral ischemia Abnormal ECG Compared to ECG 06/12/2007 14:23:33 Right bundle-branch block now present T-wave abnormality now present Possible ischemia now present Sinus bradycardia no longer present Electronically Signed On 03-18-21 16:30:06 CDT by Joe Deutsch
[2021-03-18 16:35] VITALS: BP 133/71
[2021-03-18] MEDS ORDERED: POTASSIUM CL SA 10 MEQ TAB PO ONE (18:00)
--- NOTE | 2021-03-19 06:42 | DS ---
Date of Discharge: 03/18/2021 Disposition: Discharged to go home. Physical Examination: HEENT: Unremarkable. Lungs: Clear to auscultation. Heart: Sounds normal. Abdomen: Soft, bowel sounds normal. No guarding, rigidity, tenderness, or distention. Extremities: No leg edema. Laboratory Data: Upon admission white count 12.7, hemoglobin 13.1, platelets 264. Today, white coun t 8.8, hemoglobin 12, platelets 230. Today chemistry, sodium was 144, potassium 3.1, chloride 112, b icarb 28, BUN 12, creatinine 0.75, glucose 87. CPK was 692 today, yesterday CPK was 1252. Troponin was 0.022 today. Her fasting lipid profile from yesterday showed triglyceride 73, total cholesterol 127, LDL 59, HDL 52. Discharge Medication Instruction: 1.Continue all prior home medications except stop hydrochlorothiazide. 2.Take levetiracetam 250 mg, take 1 tablet by mouth 2 times a day. 3.Follow up at my office next week on 03/24/2021. 4.Follow up with Dr. Jovel in 2 weeks. Hospital Course: This 85-year-old female patient lives at home with her son and [id number] was brought into emergency room after she had passed out at home. Please see dictated H and P for more i nformation. The patient was sitting at the dining table and all of a sudden she became unresponsive and her eyelids were moving and her son described as her entire body was very stiff. Ambulance was c alled and the patient was brought into emergency room. The patient woke up while she was in ambulanc e. Dr. Jovel was consulted from Neurology. CAT scan of the head was negative for any acute wise es, and yesterday, we did MRI of brain which was negative for any acute stroke. MRA was negative for any acute abnormality. Carotid artery Doppler and MRA both showed minimal plaquing of carotid arter y. No evidence of any stenosis. Echocardiogram showed normal ejection fraction. It was unremarkabl e. Physical Therapy/Occupational Therapy was consulted. The patient did not have any trouble swallo wing. EEG was ordered but it was not done as we did not have any automotive refinish technician available for this e nt week, and Dr. Jovel will help us to do this EEG as outpatient through his office. Per recom mendation from Dr. Jovel, she was started on empiric treatment with Keppra 250 mg 2 times a day an d details and plan of treatment was discussed with the patient and her family. The patient was disch arged to go home in stable condition today with above-mentioned medication and instructions. Final Diagnoses: 1.Probable seizure. 2.Rhabdomyolysis secondary to above. 3.Stroke with left-sided hemiparesis. 4.Hypertension. 5.Hyperlipidemia. 6.Hypokalemia. 7.Osteoarthritis, multiple sites. 8.Osteoporosis. EMMA/MODL Voice ID: [id number] Report ID: [id number]
== END 2021-03-18 18:05 | disposition home health service (06) | DRG 101 ==
LOC: ER 08:33 → ERHOLD 10:10 → 4TH 13:08
PROVIDERS: ADMIT Internal Medicine; ATTEND Internal Medicine
DX: R56.9 Unspecified convulsions (principal); M62.82 Rhabdomyolysis; I69.354 Hemiplegia and hemiparesis following cerebral infarction affecting left non-dominant side; I10 Essential (primary) hypertension; E78.5 Hyperlipidemia, unspecified; E87.6 Hypokalemia; M19.90 Unspecified osteoarthritis, unspecified site; M81.0 Age-related osteoporosis without current pathological fracture; Z20.822 Contact with and (suspected) exposure to COVID-19
CPT/HCPCS: 36415; 70450; 70544; 70549; 70553; 71045; 80048; 80061; 80076; 82150; 82550; 82553; 82947; 84484; 85025; 85610; 85730; 93005; 93306; 93880; 96360; 97112; 97116; 97161; 97530; 99285; A9577; J7030; U0003

== ENCOUNTER 2022-08-18 16:24 | Inpatient (IN) | payer OTHER ==
[2022-08-18] MEDS ORDERED: NA CHLORIDE 0.9% 500 ML ONE ×2 (17:37→18:54)
[2022-08-18] MEDS ORDERED: LEVETIRACETAM 500 MG/5 ML VIAL IV ONE (17:37)
[2022-08-18] MEDS ORDERED: NA CHLORIDE 0.9% 100 ML IV ONE ×2 (17:37→18:48)
[2022-08-18 17:58] LABS: Absolute Lymphocytes (CBC) 0.5 K/uL (0.7-4.9); Hematocrit 40.6 % (36.0-45.0); Lymphocytes % 2.3 % (15.3-44.8); MCV 88.6 fL (80-100); MPV 7.4 fL (7.6-11.3); RBC Red Blood Cell Count 4.58 M/uL (3.86-4.86)
[2022-08-18 18:01] LABS: Protime INR 0.92
[2022-08-18 18:14] LABS: Albumin 4.1 g/dL (3.4-5.0); Bilirubin Total 0.7 mg/dL (0.2-1.0); Protein, Total 7.7 g/dL (6.4-8.2)
--- NOTE | 2022-08-18 18:16 | RAD REPORT ---
EXAM DESCRIPTION: RAD - Chest Single View - 08/18/2022 6:10 pm CLINICAL HISTORY: MALAISE COMPARISON: Chest Single View dated 03/16/2021 FINDINGS: Lines: None. Lungs: No evidence of edema or pneumonia. Pleural: No significant pleural effusions or pneumothorax. Cardiac: The heart size is within normal limits. Mediastinum: Within normal limits. Bones: No acute fractures. Other: None IMPRESSION: No acute cardiopulmonary disease.
--- NOTE | 2022-08-18 18:29 | RAD REPORT ---
EXAM DESCRIPTION: CT - CTHCSPWOC - 08/18/2022 6:06 pm CLINICAL HISTORY: Trauma, head and neck injury. seizure, fall, previous stroke COMPARISON: Ct Stroke Brain Wo Cont dated 03/16/2021 TECHNIQUE: Axial 5 mm thick images of the head were obtained. Axial 2 mm thick images of the cervical spine were obtained with sagittal and coronal reconstruction images generated and reviewed. All CT scans are performed using dose optimization technique as appropriate and may include automated exposure control or mA/KV adjustment according to patient size. FINDINGS: CT HEAD WITHOUT CONTRAST: No acute hemorrhage, hydrocephalus or extra-axial collection is identified.No areas of brain edema or midline shift. Status post right pterional craniectomy. Encephalomalacia in the right frontal and te mporal lobe The paranasal sinuses and mastoids are clear.Surgical changes from prior aneurysm clipping. CT CERVICAL SPINE WITHOUT CONTRAST: No fracture or subluxation.No prevertebral soft tissues swelling is identified. Multilevel degenerati ve changes are present in the spine. IMPRESSION: No acute intracranial or cervical spine findings.
--- NOTE | 2022-08-18 18:40 | ER ---
Nurse's Notes [facility] Name: Jazmine Winchester Age: 87 yrs Sex: Female : 1935 Arrival Date: 08/18/2022 Time: 16:34 Bed 13 Private MD: Diagnosis: Sepsis, unspecified organism Presentation: 08/18 16:58 Chief complaint: EMS states: family found patient on ground. she was assisted to the bathroom 5 hours ago per EMS then was found on the floor when family came. patient hx of seizures and appeared post-ictal to family. patient stopped taking her keppra because she didn't like how it made her feel. hx of stroke with left sided deficits. patient glucose 230. Coronavirus screen: Vaccine status: Patient reports receiving the 2nd dose of the covid vaccine. Client denies travel out of the [place] in the last 14 days. At this time, the client does not indicate any symptoms associated with coronavirus-19. Ebola Screen: Patient negative for fever greater than or equal to 101.5 degrees Fahrenheit, and additional compatible Ebola Virus Disease symptoms Patient denies exposure to infectious person. Patient denies travel to an Ebola-affected area in the 21 days before illness onset. No symptoms or risks identified at this time. Initial Sepsis Screen: Does the patient meet any 2 criteria? Altered Mental Status. Yes Does the patient have a suspected source of infection? No. Patient's initial sepsis screen is negative. Risk Assessment: Do you want to hurt yourself or someone else? Patient reports no desire to harm self or others. Onset of symptoms was August 18, 2022. 16:58 Method Of Arrival: EMS: [facility] db 16:58 Acuity: FRANCES 2 db Triage Assessment: 17:02 General: Appears in no apparent distress. comfortable, Behavior is calm, cooperative. db Pain: Denies pain. Neuro: Level of Consciousness is awake, alert, obeys commands, Oriented to person, place, situation, Appropriate for age. Historical: - Allergies: 20:55 No Known Allergies; ke1 - PMHx: 17:02 CVA; Left side; Hypertension; Osteoporosis; db - PSHx: 20:55 brain surgery; ke1 - Immunization history:: Adult Immunizations unknown, Client reports receiving the 2nd dose of the Covid vaccine. - Social history:: Smoking status: Patient denies any tobacco usage or history of. Screenin:03 Abuse screen: Denies threats or abuse. Denies injuries from another. Nutritional db screening: No deficits noted. Tuberculosis screening: No symptoms or risk factors identified. Fall Risk None identified. Fall in past 12 months (25 points). Secondary diagnosis (15 points) CVA, No IV (0 pts). Ambulatory Aid- None/Bed Rest/Nurse Assist (0 pts). Gait- Normal/Bed Rest/Wheelchair (0 pts) Mental Status- Oriented to own ability (0 pts). Total Iraheta Fall Scale indicates No Risk (0-24 pts). Assessment: 17:45 Reassessment: Patient appears in no apparent distress at this time. see triage for db initial assessment. 18:45 Reassessment: Patient appears in no apparent distress at this time. Patient and/or db family updated on plan of care and expected duration. Pain level reassessed. Patient is alert, oriented x 3, equal unlabored respirations, skin warm/dry/pink. Neuro: Level of Consciousness is awake, alert, obeys commands, confused, Oriented to person, place, time, Appropriate for age Speech is normal. Cardiovascular: No deficits noted. Respiratory: No deficits noted. Airway is patent Respiratory effort is even, unlabored, Respiratory pattern is regular. GI: No deficits noted. No signs and/or symptoms were reported involving the gastrointestinal system. : No deficits noted. No signs and/or symptoms were reported regarding the genitourinary system. 20:53 Reassessment: Patient and/or family updated on plan of care and expected duration. Pain ke1 level reassessed. Neuro: Level of Consciousness is awake, alert, confused. Vital Signs: 16:58 BP 127 / 78; Pulse 93; Resp 20; Temp 96.6(TE); Pulse Ox 95% ; Weight 55.34 kg; Height 5 db ft. 2 in. (157.48 cm); 17:00 BP 129 / 74; Pulse 89; Resp 18; Pulse Ox 98% on R/A; db 20:40 BP 125 / 63; Pulse 77; Resp 20; Temp 97(O); Pulse Ox 100% ; ke1 22:35 BP 129 / 65; Pulse 78; Resp 20; Temp 99.4(O); Pulse Ox 100% ; ke1 16:58 Body Mass Index 22.31 (55.34 kg, 157.48 cm) db NIH Stroke Scale Scores: 17:00 NIHSS Score: 10 [facility] ED Course: 16:34 Patient arrived in ED. em1 16:35 Lynn Davenport FNP [facility]. jh7 16:35 Tommy Espinal MD is Attending Physician. jh7 16:58 Jennie Gibbons, RN is Primary Nurse. db 17:02 Triage completed. db 17:03 Arm band placed on right wrist. db 17:45 Initial lab(s) drawn, by dentures lab technician. db 17:45 Missed attempt(s): 22 gauge in right forearm. missed attempt x 2. Bleeding controlled, db band aid applied, catheter tip intact. 18:08 CT Head C Spine In Process Unspecified. EDMS 18:12 Chest Single View XRAY In Process Unspecified. EDMS 18:35 Accessed peripheral vein via ultrasound, utilizing dynamic ultrasound technique using jd3 20G Nexia IV catheter ,sterile technique, per hospital protocol. Clean \T\ dry. Dressing intact. Good blood return. Flushes easily. left AC. 18:39 Jarred Dodd MD is Hospitalizing Provider. jh7 20:20 Straight cath inserted, using sterile technique, Specimen obtained. Returned 300 ml. ke1 Patient tolerated well. 20:52 COVID-19/FLU A+B Sent. ke1 20:53 Bed in low position. Side rails up X 1. Side rails up X2. Adult w/ patient. ke1 23:56 No provider procedures requiring assistance completed. Patient admitted, IV remains in ke1 place. Administered Medications: 18:23 CANCELLED (Physician Discretion): NS 0.9% 500 ml IV at bolus once [facility] 18:35 Drug: Keppra (levETIRAcetam) 1000 mg Route: IV; Rate: 1 calculated rate; Site: right db antecubital; 18:50 Follow up: Response: No adverse reaction; IV Status: Completed infusion; IV Intake: 50mldb 18:35 Drug: NS 0.9% 1000 ml Route: IV; Rate: 1 bolus; Site: right antecubital; db 18:50 Drug: Cefepime 1 grams Route: IVPB; Rate: 200 ml/hr; Infused Over: 30 mins; Site: right db antecubital; 19:20 Follow up: Response: No adverse reaction; IV Status: Completed infusion ke1 19:59 Drug: vancoMYCIN 1 grams Route: IVPB; Infused Over: 2 hrs; Site: right antecubital; ke1 22:00 Follow up: Response: No adverse reaction; IV Status: Completed infusion ke1 20:53 Drug: Potassium Effervescent Tablet 50 mEq Route: PO; ke1 23:56 Follow up: Response: No adverse reaction ke1 Medication: 18:35 VIS not applicable for this client. jd3 Intake: 18:50 IV: 50ml; Total: 50ml. db Outcome: 18:39 Decision to Hospitalize by Provider. 7 23:56 Admitted to Med/surg accompanied by tech. ke1 23:56 Condition: stable 23:56 Instructed on the need for admit. 23:56 Patient left the ED. ke1 NIH Stroke Scale - NIH Stroke Score Date: 08/18/2022 Time: 17:00 Total Score = 10 1a. Level of Consciousness (LOC) - 0(Alert) 1b. Level of Consciousness (LOC) (Month \T\ Age) - 0(Both) 1c. LOC Commands (Open \T\ Closes Eyes/Weigher And Mixer) - 0(Both) 2. Best Gaze (Lateral Gaze Paresis) - 1(Partial gaze palsy) 3. Visual Field Loss - 0(No visual loss) 4. Facial Palsy - 1(Minor Paralysis) 5a. Left Arm: Motor (10-second hold) - 3(No effort against gravity) 5b. Right Arm: Motor (10-second hold) - 0(No drift) 6a. Left Leg: Motor (5-second hold - always test supine) - 3(No effort against gravity) 6b. Right Leg: Motor (5-second hold - always test supine) - 0(No drift) 7. Limb Ataxia (finger/nose \T\ heel/liao - test with eyes open) - 1(Present in one limb) 8. Sensory Loss (pinprick arms/legs/face) - 1(Mild to moderate loss) 9. Best Language: Aphasia (description/naming/reading) - 0(No aphasia) 10. Dysarthria (speech clarity - read or repeat words) - 0(Normal) 11. Extinction and Inattention (visual/tactile/auditory/spatial/personal) - 0(No abnormality) Initials: jh7 Signatures: Dispatcher [employer] EDMS Laci, Andrew em1 Jose Price RN RN jd3 Daniella West RN RN ke1 Lynn Davenport, TAMMY SEQUEIRAP 7 Jennie Gibbons RN RN db Corrections: (The following items were deleted from the chart) 19:19 17:45 Reassessment: see triage for initial assessment db db 22:37 22:35 BP 129 / 65; Pulse 78bpm; Resp 20bpm; Pulse Ox 100%; ke1 ke1
--- NOTE | 2022-08-18 18:40 | EDPHYS ---
Physician Documentation [facility] Name: Jazmine Winchester Age: 87 yrs Sex: Female : 1935 Arrival Date: 08/18/2022 Time: 16:34 Bed 13 Private MD: ED Physician Tommy Espinal HPI: 08/18 17:00 This 87 yrs old Female presents to ER via EMS with complaints of AMS, possible seizure. jh7 17:00 The patient presents. Seizure onset: the onset is not known. Context: Seizure not jh7 witnessed. Associated injury: The patient did not suffer any apparent associated injury. Patient presents to the ER for possible seizure. The patient's family states that they found her on the floor in the bathroom at 10 AM. They report that they returned at 3:30 PM and that the patient appeared postictal and confused on the floor. The patient has a history of seizures, and is prescribed Keppra. The patient states that she stopped taking Keppra due to the way it made her feel. Also reports a history of stroke with left-sided deficits and brain aneurysm. Patient nonverbal at time of EMS arrival. Blood glucose 230.. Historical: - Allergies: 20:55 No Known Allergies; ke1 - PMHx: 17:02 CVA; Left side; Hypertension; Osteoporosis; db - PSHx: 20:55 brain surgery; ke1 - Immunization history:: Adult Immunizations unknown, Client reports receiving the 2nd dose of the Covid vaccine. - Social history:: Smoking status: Patient denies any tobacco usage or history of. ROS: 17:00 Constitutional: Negative for fever, chills, and weight loss, Eyes: Negative for injury, jh7 pain, redness, and discharge, ENT: Negative for injury, pain, and discharge, Neck: Negative for injury, pain, and swelling, Cardiovascular: Negative for chest pain, palpitations, and edema, Respiratory: Negative for shortness of breath, cough, wheezing, and pleuritic chest pain, Back: Negative for injury and pain, MS/Extremity: Negative for injury and deformity, Skin: Negative for injury, rash, and discoloration. 17:00 Neuro: Positive for altered mental status, seizure activity. 17:00 All other systems are negative. Exam: 17:00 Constitutional: This is a well developed, well nourished patient who is awake, alert, jh7 and in no acute distress. Head/Face: Normocephalic, atraumatic. Eyes: Pupils equal round and reactive to light, extra-ocular motions intact. Lids and lashes normal. Conjunctiva and sclera are non-icteric and not injected. Cornea within normal limits. Periorbital areas with no swelling, redness, or edema. ENT: Nares patent. No nasal discharge, no septal abnormalities noted. Tympanic membranes are normal and external auditory canals are clear. Oropharynx with no redness, swelling, or masses, exudates, or evidence of obstruction, uvula midline. Mucous membranes moist. Neck: Trachea midline, no thyromegaly or masses palpated, and no cervical lymphadenopathy. Supple, full range of motion without nuchal rigidity, or vertebral point tenderness. No Meningismus. Cardiovascular: Regular rate and rhythm with a normal S1 and S2. No gallops, murmurs, or rubs. Normal PMI, no JVD. No pulse deficits. Respiratory: Lungs have equal breath sounds bilaterally, clear to auscultation and percussion. No rales, rhonchi or wheezes noted. No increased work of breathing, no retractions or nasal flaring. Abdomen/GI: Soft, non-tender, with normal bowel sounds. No distension or tympany. No guarding or rebound. No evidence of tenderness throughout. Back: No spinal tenderness. No costovertebral tenderness. Full range of motion. Skin: Warm, dry with normal turgor. Normal color with no rashes, no lesions, and no evidence of cellulitis. 17:00 Musculoskeletal/extremity: ROM: Left upper and lower extremities have limited ROM due to previous stroke. 17:00 Neuro: Orientation: to person, place \T\ time. Mentation: slow to respond, confused, Sensation: is normal, Gait: unable to assess. Vital Signs: 16:58 BP 127 / 78; Pulse 93; Resp 20; Temp 96.6(TE); Pulse Ox 95% ; Weight 55.34 kg; Height 5 db ft. 2 in. (157.48 cm); 17:00 BP 129 / 74; Pulse 89; Resp 18; Pulse Ox 98% on R/A; db 20:40 BP 125 / 63; Pulse 77; Resp 20; Temp 97(O); Pulse Ox 100% ; ke1 22:35 BP 129 / 65; Pulse 78; Resp 20; Temp 99.4(O); Pulse Ox 100% ; ke1 16:58 Body Mass Index 22.31 (55.34 kg, 157.48 cm) db NIH Stroke Scale Scores: 17:00 NIHSS Score: 10 [facility] MDM: 16:35 Patient medically screened. [facility] 19:00 Differential diagnosis: cerebral vascular accident, seizure, TIA, UTI, dehydration, [facility] pneumonia, sepsis. Data reviewed: vital signs, nurses notes, lab test result(s), EKG, radiologic studies, CT scan, plain films. Data interpreted: Pulse oximetry: is 100 %. Interpretation: normal. Counseling: I had a detailed discussion with the patient and/or guardian regarding: the historical points, exam findings, and any diagnostic results supporting the discharge/admit diagnosis, the need for further work-up and treatment in the hospital. ED course: Spoke to Dr. Dodd regarding patient admission. [facility].. 21:00 ED course: Lab presented at the patient's bedside stating that they were here to draw [facility] the blood cultures. They reported that the blood cultures that they received at 4 PM did not have a label on them therefore they were no good and had to be thrown out. Lab did not notify anyone of this until 9 PM.. 08/18 16:47 Order name: Blood Culture Adult (2) [facility] 08/18 16:47 Order name: CBC with Diff; Complete Time: 19:51 [facility] 08/18 16:47 Order name: CMP; Complete Time: 18:21 [facility] 08/18 16:47 Order name: Lactate w/ 2H reflex if indic.; Complete Time: 18:21 [facility] 08/18 16:47 Order name: Protime (+inr); Complete Time: 18:06 [facility] 08/18 16:47 Order name: Ptt, Activated; Complete Time: 18:06 [facility] 08/18 16:47 Order name: Urine Culture [facility] 08/18 16:47 Order name: Urine Microscopic Only; Complete Time: 21:11 [facility] 08/18 18:58 Order name: Urinalysis [facility] 08/18 18:58 Order name: Basic Metabolic Panel [facility] 08/18 18:58 Order name: Basic Metabolic Panel [facility] 08/18 18:58 Order name: CBC with Automated Diff [facility] 08/18 18:58 Order name: CBC with Automated Diff [facility] 08/18 19:30 Order name: Manual Differential; Complete Time: 19:51 [facility] 08/18 16:47 Order name: Chest Single View XRAY; Complete Time: 18:22 [facility] 08/18 16:47 Order name: EKG; Complete Time: 16:47 [facility] 08/18 16:47 Order name: Accucheck; Complete Time: 18:33 [facility] 08/18 16:47 Order name: Cardiac monitoring; Complete Time: 18:32 [facility] 08/18 16:47 Order name: EKG - Nurse/Tech; Complete Time: 18:32 [facility] 08/18 16:47 Order name: CT Head C Spine; Complete Time: 18:31 [facility] 08/18 18:58 Order name: Regular [facility] 08/18 19:57 Order name: COVID-19/FLU A+B; Complete Time: 21:11 [facility] 08/18 20:39 Order name: Urine Dipstick-Ancillary; Complete Time: 20:42 [facility] 08/18 21:47 Order name: Lactate Sepsis 2 HR Follow-up [facility] 08/18 16:47 Order name: IV Saline Lock - Large Bore; Complete Time: 18:31 [facility] 08/18 16:47 Order name: Labs collected and sent; Complete Time: 18:31 [facility] 08/18 16:47 Order name: O2 Per Protocol; Complete Time: 18:31 [facility] 08/18 16:47 Order name: O2 Sat Monitoring; Complete Time: 18:31 [facility] 08/18 16:47 Order name: Urine Dipstick-Ancillary (obtain specimen); Complete Time: 21:15 [facility] 08/18 16:47 Order name: Vital Signs; Complete Time: 18:45 [facility] 08/18 19:03 Order name: Straight Cath - Urine; Complete Time: 20:29 [facility] Administered Medications: 18:23 CANCELLED (Physician Discretion): NS 0.9% 500 ml IV at bolus once [facility] 18:35 Drug: Keppra (levETIRAcetam) 1000 mg Route: IV; Rate: 1 calculated rate; Site: right db antecubital; 18:50 Follow up: Response: No adverse reaction; IV Status: Completed infusion; IV Intake: 50mldb 18:35 Drug: NS 0.9% 1000 ml Route: IV; Rate: 1 bolus; Site: right antecubital; db 18:50 Drug: Cefepime 1 grams Route: IVPB; Rate: 200 ml/hr; Infused Over: 30 mins; Site: right db antecubital; 19:20 Follow up: Response: No adverse reaction; IV Status: Completed infusion ke1 19:59 Drug: vancoMYCIN 1 grams Route: IVPB; Infused Over: 2 hrs; Site: right antecubital; ke1 22:00 Follow up: Response: No adverse reaction; IV Status: Completed infusion ke1 20:53 Drug: Potassium Effervescent Tablet 50 mEq Route: PO; ke1 23:56 Follow up: Response: No adverse reaction ke1 Disposition Summary: 08/18/22 18:39 Hospitalization Ordered Hospitalization Status: Inpatient Admission [facility] Provider: Jarred Dodd Hellen Location: Telemetry/MedSur (Inpatient) [facility] Condition: Stable [facility] Problem: new [facility] Symptoms: are unchanged [facility] Bed/Room Type: Standard [facility] Room Assignment: (08/18/22 21:55) [facility] Diagnosis - Sepsis, unspecified organism [facility] Forms: - Medication Reconciliation Form [facility] - SBAR form [facility] NIH Stroke Scale - NIH Stroke Score Date: 08/18/2022 Time: 17:00 Total Score = 10 1a. Level of Consciousness (LOC) - 0(Alert) 1b. Level of Consciousness (LOC) (Month \T\ Age) - 0(Both) 1c. LOC Commands (Open \T\ Closes Eyes/[employer] [place] [employer]) - 0(Both) 2. Best Gaze (Lateral Gaze Paresis) - 1(Partial gaze palsy) 3. Visual Field Loss - 0(No visual loss) 4. Facial Palsy - 1(Minor Paralysis) 5a. Left Arm: Motor (10-second hold) - 3(No effort against gravity) 5b. Right Arm: Motor (10-second hold) - 0(No drift) 6a. Left Leg: Motor (5-second hold - always test supine) - 3(No effort against gravity) 6b. Right Leg: Motor (5-second hold - always test supine) - 0(No drift) 7. Limb Ataxia (finger/nose \T\ heel/liao - test with eyes open) - 1(Present in one limb) 8. Sensory Loss (pinprick arms/legs/face) - 1(Mild to moderate loss) 9. Best Language: Aphasia (description/naming/reading) - 0(No aphasia) 10. Dysarthria (speech clarity - read or repeat words) - 0(Normal) 11. Extinction and Inattention (visual/tactile/auditory/spatial/personal) - 0(No abnormality) Initials: [facility] Addendum: 08/21/2022 20:18 Co-signature as Attending Physician, Tommy Espinal MD I agree with the rt assessment and plan of care. Signatures: Dispatcher [employer] EDMS Carolyn Agustin RN RN eb1 Daniella West RN RN ke1 Lynn Davenport, VASCULAR SURGEON VASCULAR SURGEON [facility] Jennie Gibbons RN RN Tommy Barrera MD MD rt Corrections: (The following items were deleted from the chart) 08/18 18:11 17:00 NIHSS Score: 10 [place] [id number] 18:23 16:47 NS 0.9% 500 ml IV at bolus once ordered. [place] [id number] 21:55 18:39 [place] [id number]
[2022-08-18] MEDS ORDERED: VANCOMYCIN 1 GM/VIAL ONE (18:48)
[2022-08-18] MEDS ORDERED: CEFEPIME 1 GM/VIAL ONE (18:48)
[2022-08-18] MEDS ORDERED: NA CHLORIDE 0.9% 250 ML ONE (18:48)
[2022-08-18] MEDS ORDERED: NA CHLORIDE 0.9% 1,000 ML IV SCH (19:00)
[2022-08-18 19:30] LABS: Blood Morphology Comment NOT SEEN (NOT SEEN); Platelet Estimate ADEQ
[2022-08-18 20:39] LABS: Urine Blood 2+ (Negative); Urine Glucose Trace (Negative); Urine Protein 1+ (Negative); Urine Specific Gravity >=1.030 (1.005-1.030); Urine pH 5.5 (5.0-7.0)
[2022-08-18] MEDS ORDERED: POTASSIUM 25 MEQ EFFERV TAB ONE (20:44)
[2022-08-18] MEDS ORDERED: ATORVASTATIN 20 MG TAB PO SCH (21:00)
[2022-08-18 21:01] LABS: Urine Crystals Unidentified Few /HPF (None Seen); Urine Mucus Slight /HPF (None Seen)
[2022-08-18 21:01] LABS: SARS-COV-2 RT PCR NEGATIVE (NEGATIVE)
[2022-08-19] MEDS: NA CHLORIDE 0.9% 1,000 ML IV SCH ×2 (00:46→14:28)
[2022-08-19 01:45] VITALS: BMI 23.4
[2022-08-19 04:38] LABS: Absolute Lymphocytes (CBC) 1.7 K/uL (0.7-4.9); Hematocrit 32.4 % (36.0-45.0); Lymphocytes % 13.3 % (15.3-44.8); MCV 88.8 fL (80-100); MPV 7.6 fL (7.6-11.3); RBC Red Blood Cell Count 3.65 M/uL (3.86-4.86)
[2022-08-19 04:57] LABS: Potassium 3.6 mmol/L (3.5-5.1)
[2022-08-19] MEDS: ASPIRIN 81 MG CHEWABLE TABLET PO SCH (08:41)
[2022-08-19] MEDS: ENOXAPARIN 30 MG/0.3 ML SQ SCH (08:41)
[2022-08-19] MEDS ORDERED: ENOXAPARIN 40 MG/0.4 ML SQ SCH (09:00)
[2022-08-19] MEDS ORDERED: ASPIRIN 81 MG CHEWABLE TABLET PO SCH (09:00)
[2022-08-19] MEDS ORDERED: lisinopriL 10 MG TAB PO SCH ×2 (09:00)
[2022-08-19] MEDS: lisinopriL 10 MG TAB PO SCH (09:00)
--- NOTE | 2022-08-19 15:17 | RAD REPORT ---
EXAM DESCRIPTION: RAD - Hip Bilateral With Pelvis - 08/19/2022 2:16 pm CLINICAL HISTORY: Fall with pelvic pain FINDINGS: The bones are osteoporotic. No fracture or dislocation seen. If patient continues to have symptoms to suggest an occult fracture MRI would be recommended
--- NOTE | 2022-08-19 17:30 | HP ---
Date of Admission: 08/19/2022 Chief Complaint: Altered mental status. History Of Present Illness: This is an 87-year-old pleasant female patient, who lives at home with her son and [id number], was found on the bathroom floor with altered mental status, and subsequently, she was brought into emergency room. As I understand by communicating with the family member, last time family checked on her was around 10:30 or so in the morning and she was in the bathroom, and after that, family left for about 3-4 hours, and when they came back, they found her lying on the bathroom floor with altered mental status. There was no evidence of any vomiting or diarrhea. No evidence of any bleeding. Ambulance was called, and she was brought into emergency room. After she was evaluated in the ER, she was noted to have extremely high WBC count and empiric antibiotics were started, and she was admitted to the hospital. IV fluid 1 L was given in the emergency room and subsequently maintenance IV fluid was ordered. This morning when I saw her, her son was present with her at bedside who reported that the patient is back to her normal usual self. She denies any dysuria. No cough, congestion. No fever, chills, nausea, vomiting, diarrhea. The patient thinks that she must have fallen down while she was in the bathroom, but no symptoms or complaints prior to this fall yesterday. She is not complaining of any back pain or any hip or pelvis area pain. No complaints of pain in her arms or legs. Allergies: NO KNOWN ALLERGIES. Medications: Aspirin 81 mg daily, atorvastatin 20 mg daily, hydrochlorothiazide 12.5 mg daily in morning, ibandronic acid 150 mg once a month, lisinopril 10 mg daily in the evening. 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 Significant for altered mental status and chronic weakness on the left side from prior stroke. All other systems reviewed and negative. Past Medical History: Significant for hypertension, stroke with left-sided hemiparesis, hyperlipidemia, osteoarthritis at multiple sites, leg edema, and osteoporosis. Past Surgical History: Tonsillectomy with adenoidectomy, cholecystectomy, tubal ligation. Family History: Father , had Alzheimer disease. Mother , had asthma, osteoporosis, TIA, blood clot, anemia, allergies. Brother had blood clot in leg. Social History: Negative for smoking, alcohol use. Physical Examination: Vital Signs: This morning, temperature 98.6, pulse 69, respiratory rate 16, blood pressure 100/59, oxygen saturation 100%. Height 5 feet 2 inches, weight 122 pounds. General: Awake, alert, oriented, not in distress. HEENT: Head atraumatic, normocephalic. Conjunctivae nonerythematous. Sclerae white. Mouth, no thrush or edema noted. Ears/Nose, no mass, lesion, discharge noted. Neck: Supple. No JVD, lymph nodes, bruit, thyromegaly noted. Lungs: Bilateral good equal air entry. Clear to auscultation. No rhonchi. No rales. Heart: Normal heart sounds, no murmur or gallop. Abdomen: Soft, bowel sounds normal. No guarding, rigidity, tenderness, mass, hepatosplenomegaly, distention, or bruit noted. Extremities: No leg edema. No calf tenderness. Skin: No rash, ulcer, cellulitis. Lymphatics: No lymph node enlargement in neck, supraclavicular, infraclavicular region. Neuro: Left-sided hemiparesis which is chronic, unchanged. Chest: Unremarkable. External Genitalia: Deferred. Rectal: Deferred. Laboratory Data: Yesterday, white count 23.5, hemoglobin 13.8, platelets 336, 96% neutrophils. Today, white count 13.1, hemoglobin 11.2, platelets 269. Yesterday, sodium 138, potassium 3, chloride 104, bicarb 27, BUN 23, creatinine 1.10, glucose 196. Liver function tests unremarkable. This morning, sodium 142, potassium 3.6, chloride 109, bicarb 31, BUN 20, creatinine 0.94, glucose 97. Urinalysis reported as unremarkable, but the timing of the urinalysis was 8:36 p.m. and timing on the blood work yesterday that was collected in the ER was 5:41 p.m., so I am not sure if this urine specimen was collected before antibiotic administration or after, but at least the urine culture as I understand was collected prior to antibiotic administration and we will have to follow up on the urine culture results along with the blood culture results. Chest x-ray, no acute cardiopulmonary changes. COVID-19 test negative. CAT scan of the head and cervical spine was negative for any acute findings. Impression: 1. Toxic encephalopathy. 2. Stroke with left-sided hemiparesis. 3. Hypokalemia. 4. Anemia, unspecified. 5. Hypertension. 6. Hyperlipidemia. 7. Osteoporosis. 8. Osteoarthritis, multiple sites. Plan: Admit patient to hospital for further evaluation and management of this problem. The patient is appropriate for inpatient and is expected to spend 2 midnights in hospital. Her influenza A and B test were negative done in the emergency room. She does not have any definite symptoms indicating any particular source of infection. Empiric antibiotics were started. Likely source of infection would be urinary tract infection, and we will follow up on urine culture and blood culture. Continue current antibiotics once we have culture results back and we can decide about culture specific antibiotics. Otherwise, we will have to plan to discharge her to go home with empiric antibiotics. Continue IV fluid. Continue DVT prophylaxis using Lovenox. Possible discharge to go home day after tomorrow depending on her condition. Advance directives discussed with her in presence of her son, and in the event of cardiopulmonary arrest, patient does not want any heroic measures like CPR, defibrillation, and ventilator support, and DNR order is in place in her chart. I have also asked patient's son to show me her advance directive papers that she has at home, so in case if we need to get her out of hospital DNR paperwork ready, then we can assist her with that also. Home medications will be continued for blood pressure, lisinopril 10 mg daily, hold if systolic blood pressure less than 130. We will continue her aspirin and atorvastatin for high cholesterol problem. Consult Physical therapy to help ambulate her. Continue current IV fluid, and we will repeat blood work tomorrow. Plan of treatment discussed with the patient and her son. EMMA/MODL Voice ID: [id number] HERMILO
[2022-08-19] MEDS: ATORVASTATIN 20 MG TAB PO SCH (21:34)
[2022-08-20] MEDS: NA CHLORIDE 0.9% 1,000 ML IV SCH ×3 (03:40→17:00)
[2022-08-20 05:55] LABS: Absolute Lymphocytes (CBC) 2.1 K/uL (0.7-4.9); Hematocrit 32.1 % (36.0-45.0); Lymphocytes % 25.2 % (15.3-44.8); MPV 7.4 fL (7.6-11.3)
[2022-08-20 06:09] LABS: Magnesium 1.7 mg/dL (1.8-2.4); Potassium 3.6 mmol/L (3.5-5.1)
[2022-08-20] MEDS: ASPIRIN 81 MG CHEWABLE TABLET PO SCH (08:33)
[2022-08-20] MEDS: ENOXAPARIN 30 MG/0.3 ML SQ SCH (08:34)
[2022-08-20] MEDS: lisinopriL 10 MG TAB PO SCH (08:34)
[2022-08-20] MEDS: ATORVASTATIN 20 MG TAB PO SCH (20:44)
[2022-08-21] MEDS: ENOXAPARIN 30 MG/0.3 ML SQ SCH (09:39)
[2022-08-21] MEDS: lisinopriL 10 MG TAB PO SCH (09:39)
[2022-08-21] MEDS: ASPIRIN 81 MG CHEWABLE TABLET PO SCH (09:39)
[2022-08-21 10:21] VITALS: O2SAT 99
[2022-08-21 12:42] VITALS: BP 133/70; TEMP 98.1
--- NOTE | 2022-08-21 21:45 | PN ---
Date of Progress Note: 08/20/2022 Subjective: Patient was seen this morning for followup. Her son was present with her at bedside and she was back to her normal usual self. She was communicating well and answering questions appropria tely, Objective: Vital Signs: Reviewed. HEENT: Unremarkable. Lungs: Clear to auscultation. Heart: Sounds normal. Abdomen: Soft. Bowel sounds normal. No guarding, rigidity, tenderness, or distention. Extremities: No leg edema. Laboratory Data: White count 8.1, hemoglobin 11.1, and platelets 247. Sodium 144, potassium 3.6, ch loride 112, bicarb 29, BUN 14, creatinine 0.96, glucose 93, and magnesium 1.7. Impression: 1.Toxic encephalopathy. 2.Anemia. 3.Hypomagnesemia. 4.Hypertension. So far blood culture and urine culture have remained negative. We will continue current empiric anti biotic. The patient has responded very well and she is back to her baseline. We will follow up on f inal culture results tomorrow and then plan to discharge her to go home tomorrow depending on culture results and her condition. Details were discussed with family. EMMA/MODL Voice ID: [id number] Report ID: [id number]
--- NOTE | 2022-08-22 06:48 | DS ---
Date of Discharge: 08/21/2022 Disposition: Discharged to go home. Physical Examination: HEENT: Unremarkable. Lungs: Clear to auscultation. Heart: Sounds normal. Abdomen: Soft, bowel sounds normal. No guarding, rigidity, tenderness, distention. Extremities: No leg edema. Laboratory Data: Upon admission, white count 23.5, hemoglobin 13.8, platelets 336. Yesterday, white count 8.1, hemoglobin 11.1, platelets 247. Chemistry from yesterday; sodium 144, potassium 3.6, chl oride 112, bicarb 29, BUN 14, creatinine 0.96, glucose 93, magnesium 1.7. Discharge Medications And Instructions: 1.Continue all prior home medications. 2.Start Augmentin 500 mg 2 times a day for 1 week and Levaquin 500 mg daily for 1 week. 3.Follow up at my office next week. Hospital Course: An 87-year-old pleasant female patient admitted to the hospital with altered mental status. Please see dictated H and P for more information. After the patient was evaluated in the e mergency room, she was admitted to the hospital. She was started on empiric antibiotic cefepime and vancomycin. Her urinalysis was unremarkable. CAT scan of the head and cervical spine was negative f or any acute changes. Chest x-ray was negative for any acute cardiopulmonary changes. COVID-19 test negative. Her blood culture and urine culture remained negative. The patient's altered mental stat us has improved and she is back to her baseline. The patient was discharged to go home in stable cond ition today. Final Diagnoses: 1.Toxic encephalopathy. 2.Stroke with left-sided hemiparesis. 3.Hypokalemia. 4.Hypomagnesemia. 5.Anemia. 6.Hypertension. 7.Hyperlipidemia. 8.Osteoporosis. 9.Osteoarthritis, multiple sites. EMMA/MODL Voice ID: [id number] Report ID: [id number]
== END 2022-08-21 12:55 | disposition home or self-care (01) | DRG 92 ==
LOC: ER 16:24 → 2ND 18:39 → UNDOADMIN 18:39 → 2ND 23:18
PROVIDERS: ADMIT Internal Medicine; ATTEND Internal Medicine
DX: G92.9 Unspecified toxic encephalopathy (principal); I69.354 Hemiplegia and hemiparesis following cerebral infarction affecting left non-dominant side; E87.6 Hypokalemia; E83.42 Hypomagnesemia; D64.9 Anemia, unspecified; I10 Essential (primary) hypertension; E78.5 Hyperlipidemia, unspecified; M81.0 Age-related osteoporosis without current pathological fracture; M15.9 Polyosteoarthritis, unspecified; Z66 Do not resuscitate; Z20.822 Contact with and (suspected) exposure to COVID-19; Z79.82 Long term (current) use of aspirin; Z79.899 Other long term (current) drug therapy; Z90.49 Acquired absence of other specified parts of digestive tract; Z82.0 Family history of epilepsy and other diseases of the nervous system; Z82.5 Family history of asthma and other chronic lower respiratory diseases
CPT/HCPCS: 0240U; 36415; 51702; 70450; 71045; 72125; 73521; 80048; 80053; 81003; 81015; 82947; 83605; 83735; 85025; 85610; 85730; 87040; 87086; 87088; 94760; 96365; 96366; 96367; 96375; 97116; 97161; 99285; J0692; J1650; J1953; J3370; J7030; J7040; J7050

== ENCOUNTER 2023-05-04 09:24 | Emergency (ER) | payer OTHER ==
[2023-05-04 09:49] LABS: Absolute Lymphocytes (CBC) 1.5 K/uL (0.7-4.9); Hematocrit 37.4 % (36.0-45.0); Lymphocytes % 17.2 % (15.3-44.8); MCV 90.1 fL (80-100); MPV 7.8 fL (7.6-11.3); Platelets 273 thou/uL (152-406); RBC Red Blood Cell Count 4.15 M/uL (3.86-4.86)
[2023-05-04 09:54] LABS: Protime INR 0.93
[2023-05-04 10:11] LABS: Albumin 3.4 g/dL (3.4-5.0); Bilirubin Direct 0.2 mg/dL (0-0.2); Bilirubin Indirect, Calculated 0.5 mg/dL (0.2-0.8); Bilirubin Total 0.7 mg/dL (0.2-1.0); Magnesium 1.7 mg/dL (1.6-2.4); Potassium 3.1 mEq/L (3.5-5.1); Protein, Total 6.4 g/dL (6.4-8.2)
--- NOTE | 2023-05-04 10:52 | RAD REPORT ---
EXAM DESCRIPTION: CT - CTHCSPWOC - 05/04/2023 10:09 am CLINICAL HISTORY: seizure + trauma COMPARISON: Head C Spine Mpr Wo Con dated 08/18/2022; Brain W/Wo Cont dated 03/17/2021; Ct Stroke Bra in Wo Cont dated 03/16/2021 TECHNIQUE: Axial thin cut noncontrast CT images of the head were obtained. Axial thin cut noncontrast CT images of the cervical spine were obtained. Multiplanar reformatted images were generated and reviewed. All CT scans are performed using dose optimization technique as appropriate and may include automated exposure control or mA/KV adjustment according to patient size. FINDINGS: CT HEAD WITHOUT CONTRAST: Sequelae of right frontotemporal craniotomy with aneurysm clip along the right sylvian fissure. Adjac ent extensive frontal and perisylvian encephalomalacia, with ex vacuo dilation of the right lateral v entricle. Appearance is stable. No acute hemorrhage, hydrocephalus or extra-axial collection is ident ified.No areas of brain edema or midline shift. The paranasal sinuses and mastoids are clear.The calvarium is intact. CT CERVICAL SPINE WITHOUT CONTRAST: Superior endplate compression fracture with anterior wedge compression deformity at T3, appears progr essive since the prior cervical spine CT of July 2022, with moderate vertebral body height loss. Underlying sclerosis suggests chronic nature. No other acute fracture or subluxation.No prevertebral soft tissues swelling is identified. IMPRESSION: No acute traumatic intracranial or cervical spine findings. Chronic appearing anterior wedge compression deformity at T3. Degree of vertebral body height loss ap pears mildly progressive since July 2022.
--- NOTE | 2023-05-04 11:03 | EDPHYS ---
Physician Documentation [facility] Name: Jazmine Winchester Age: 87 yrs Sex: Female : 1935 Arrival Date: 05/04/2023 Time: 09:24 Bed 7 Private MD: ED Physician Lay Calxito HPI: 05/04 09:35 This 87 yrs old Female presents to ER via Unassigned with complaints of Seizure and sp3 fall. 09:35 87-year-old female with a history of cerebral aneurysm and hemorrhagic stroke in 2005 sp3 with subsequent recovery and 83 seizure history over 4 years now presents to the ED with seizure #4. Patient was at home getting dressed when seizure occurred. Patient fell back and hit her head on the posterior side on the bathroom floor. Patient's son was at home who found patient to be seizing with subsequent postictal period. EMS was activated and patient was brought to the ED. She is currently at her baseline mental status with mild posterior head pain and mild neck pain. She has no other complaints. She had a full neurological evaluation with a neurologist and had actually started antiepileptic medications for which she did not tolerate. She has not been on any medications for over 2 years. Patient denies chest pain, shortness of breath, back pain, abdominal pain, nausea, vomiting, diarrhea, syncope, near syncope, fever, URI symptoms, known sick contacts, travel history, or any other signs or symptoms on ROS at this time.. Historical: - PMHx: 09:52 CVA; Left side; Hypertension; Osteoporosis; ko1 - PSHx: 09:52 brain surgery; ko1 - Immunization history:: Adult Immunizations unknown. - Social history:: Smoking status: Patient denies any tobacco usage or history of. ROS: 09:38 Constitutional: Negative for fever, chills, and weight loss, Eyes: Negative for injury, sp3 pain, redness, and discharge, ENT: Negative for injury, pain, and discharge, Neck: Negative for injury, pain, and swelling, Cardiovascular: Negative for chest pain, palpitations, and edema, Respiratory: Negative for shortness of breath, cough, wheezing, and pleuritic chest pain, Abdomen/GI: Negative for abdominal pain, nausea, vomiting, diarrhea, and constipation, Back: Negative for injury and pain, MS/Extremity: Negative for injury and deformity, Skin: Negative for injury, rash, and discoloration, Psych: Negative for depression, anxiety, suicide ideation, homicidal ideation, and hallucinations, Allergy/Immunology: Negative for hives, rash, and allergies, Endocrine: Negative for neck swelling, polydipsia, polyuria, polyphagia, and marked weight changes, Hematologic/Lymphatic: Negative for swollen nodes, abnormal bleeding, and unusual bruising. 09:38 All other systems are negative. Exam: 09:40 Constitutional: This is a well developed, well nourished patient who is awake, alert, sp3 and in no acute distress. Head/Face: Normocephalic, atraumatic. Eyes: Pupils equal round and reactive to light, extra-ocular motions intact. Lids and lashes normal. Conjunctiva and sclera are non-icteric and not injected. Cornea within normal limits. Periorbital areas with no swelling, redness, or edema. ENT: Nares patent. No nasal discharge, no septal abnormalities noted. External auditory canals are clear. Oropharynx with no redness, swelling, or masses, exudates, or evidence of obstruction, uvula midline. Mucous membranes moist. Neck: Trachea midline, no thyromegaly or masses palpated, and no cervical lymphadenopathy. Supple, full range of motion without nuchal rigidity, or vertebral point tenderness. No Meningismus. Chest/axilla: Normal chest wall appearance and motion. Nontender with no deformity. No lesions are appreciated. Cardiovascular: Regular rate and rhythm with a normal S1 and S2. No gallops, murmurs, or rubs. Normal PMI, no JVD. No pulse deficits. Respiratory: Lungs have equal breath sounds bilaterally, clear to auscultation and percussion. No rales, rhonchi or wheezes noted. No increased work of breathing, no retractions or nasal flaring. Abdomen/GI: Soft, non-tender, with normal bowel sounds. No distension or tympany. No guarding or rebound. No evidence of tenderness throughout. Skin: Warm, dry with normal turgor. Normal color with no rashes, no lesions, and no evidence of cellulitis. MS/ Extremity: Pulses equal, no cyanosis. Neurovascular intact. Full, normal range of motion. Neuro: Awake and alert, GCS 15, oriented to person, place, time, and situation. Cranial nerves II-XII grossly intact. Motor strength 5/5 in all extremities. Sensory grossly intact. Cerebellar exam normal. Normal gait. Psych: Awake, alert, with orientation to person, place and time. Behavior, mood, and affect are within normal limits. 09:40 ECG was reviewed by the Attending Physician. EKG demonstrates normal sinus rhythm at 72 sp3 bpm with normal intervals, right bundle branch block incomplete, nonspecific diffuse ST/T changes without evidence of acute ischemia. Vital Signs: 09:25 BP 118 / 57; Pulse 77; Resp 16; Temp 97.3(A); Pulse Ox 96% ; ko1 09:30 BP 119 / 58; Pulse 74; Resp 16; Pulse Ox 97% ; ko1 10:39 BP 123 / 48; Pulse 72; Resp 18; Pulse Ox 99% ; ko1 MDM: 09:31 Patient medically screened. sp3 09:41 Data reviewed: vital signs, nurses notes, EMS record, lab test result(s), radiologic sp3 studies. ED course: 87-year-old female with prior cerebral aneurysm and multiple prior seizures not on medication now presents to the ED for recurrent seizure. Patient is also here with her son who gives extensive history. She is not keen on starting or continuing antiepileptic medication due to her prior bad experience. We will obtain CT scan of the head, laboratory values and general observation and if workup is negative, likely discharge her home with her neurology follow-up. Patient is back to her baseline and has no complaints other than the headache and neck pain which we will evaluate from both a neurological and trauma standpoint with CT of the head and neck.. 11:01 ED course: Patient's vital signs continue to be normal. Chemistries, CBC are within sp3 normal limits. There are no other electrolyte abnormalities. Patient has had no further seizure activity. Patient declines antiepileptic medication at this time. We will safely discharged home with Dr. Jovel follow-up and she can see Dr. Dodd her PCP as well.. 05/04 09:32 Order name: Basic Metabolic Panel; Complete Time: 10:46 sp3 05/04 09:32 Order name: CBC with Diff; Complete Time: 10:46 sp3 05/04 09:32 Order name: LFT's; Complete Time: 10:46 sp3 05/04 09:32 Order name: Magnesium; Complete Time: 10:46 sp3 08/09 09:32 Order name: PT-INR; Complete Time: 10:46 sp3 05/04 09:32 Order name: Troponin HS; Complete Time: 10:46 sp3 05/04 09:32 Order name: CT Head C Spine; Complete Time: 10:59 sp3 05/04 09:32 Order name: EKG; Complete Time: 09:32 sp3 05/04 09:32 Order name: Cardiac monitoring; Complete Time: 09:39 sp3 05/04 09:32 Order name: EKG - Nurse/Tech; Complete Time: 09:39 sp3 05/04 09:32 Order name: IV Saline Lock; Complete Time: 09:48 sp3 05/04 09:32 Order name: Labs collected and sent; Complete Time: 09:48 sp3 05/04 09:32 Order name: O2 Sat Monitoring; Complete Time: 09:39 sp3 Administered Medications: No medications were administered Disposition Summary: 05/04/23 11:02 Discharge Ordered Location: Home sp3 Condition: Stable sp3 Diagnosis - Breakthrough seizure sp3 Followup: sp3 - With: Keith Jovel MD - When: Upon discharge from the Emergency Department - Reason: Further diagnostic work-up Discharge Instructions: - Discharge Summary Sheet sp3 - Seizure, Adult sp3 Forms: - Medication Reconciliation Form sp3 - Thank You Letter sp3 - Antibiotic Education sp3 - Prescription Opioid Use sp3 - Patient Portal Instructions sp3 Signatures: Dispatcher [employer] EDLay Kidd MD MD sp3 Evie Macias RN RN ko1 Corrections: (The following items were deleted from the chart) 09:40 09:38 Constitutional: Negative for fever, chills, and weight loss, Eyes: Negative for sp3 injury, pain, redness, and discharge, ENT: Negative for injury, pain, and discharge, Neck: Negative for injury, pain, and swelling, Cardiovascular: Negative for chest pain, palpitations, and edema, Respiratory: Negative for shortness of breath, cough, wheezing, and pleuritic chest pain, Abdomen/GI: Negative for abdominal pain, nausea, vomiting, diarrhea, and constipation, Back: Negative for injury and pain, MS/Extremity: Negative for injury and deformity, Skin: Negative for injury, rash, and discoloration, Neuro: Negative for headache, weakness, numbness, tingling, and seizure, Psych: Negative for depression, anxiety, suicide ideation, homicidal ideation, and hallucinations, Allergy/Immunology: Negative for hives, rash, and allergies, Endocrine: Negative for neck swelling, polydipsia, polyuria, polyphagia, and marked weight changes, Hematologic/Lymphatic: Negative for swollen nodes, abnormal bleeding, and unusual bruising, sp3 09:53 09:52 Home Meds: aspirin 81 mg Oral TbEC 1 tab once daily; ko1 ko1
--- NOTE | 2023-05-04 11:03 | ER ---
Nurse's Notes [facility] Name: Jazmine Winchester Age: 87 yrs Sex: Female : 1935 Arrival Date: 05/04/2023 Time: 09:24 Bed 7 Private MD: Diagnosis: Breakthrough seizure Presentation: 05/04 09:25 Chief complaint: EMS states: called for a seizure at home, patient has a history of ko1 seizures. Coronavirus screen: At this time, the client does not indicate any symptoms associated with coronavirus-19. Ebola Screen: No symptoms or risks identified at this time. Initial Sepsis Screen: Does the patient meet any 2 criteria? No. Patient's initial sepsis screen is negative. Does the patient have a suspected source of infection? No. Patient's initial sepsis screen is negative. Risk Assessment: Do you want to hurt yourself or someone else? Patient reports no desire to harm self or others. Onset of symptoms was May 04, 2023. 09:25 Method Of Arrival: EMS: [facility] ko1 09:25 Acuity: FRANCES 3 ko1 Historical: - PMHx: 09:52 CVA; Left side; Hypertension; Osteoporosis; ko1 - PSHx: 09:52 brain surgery; ko1 - Immunization history:: Adult Immunizations unknown. - Social history:: Smoking status: Patient denies any tobacco usage or history of. Screenin:30 [facility] ED Fall Risk Assessment (Adult) History of falling in the last 3 months, ko1 including since admission Yes- single mechanical fall (1 pt) Confusion or Disorientation Yes (5 pts) Intoxicated or Sedated No (0 pts) Impaired Gait No (0 pts) Mobility Assist Device Used No (0 pt) Altered Elimination No (0 pt) Score/Fall Risk Level 3 or more points = High Risk Oriented to surroundings, Maintained a safe environment, Educated pt \T\ family on fall prevention, incl call for assistance when getting out of bed, Assessed \T\ reinforced patient's understanding of fall precautions, Provided non-skid footwear, Hourly rounding (assess needs \T\ fall precautionary measures) done, Used ambulatory aids as needed (educated on \T\ assisted with), Used gait belt as appropriate Implemented a Fall Risk Plan of Care, Apply high fall risk patient identification: yellow non skid footwear/ fall signage, Utilized family, sitter, or virtual gum machine filler as indicated. Abuse screen: Denies threats or abuse. Denies injuries from another. Nutritional screening: No deficits noted. Tuberculosis screening: No symptoms or risk factors identified. Assessment: 09:30 General: Appears in no apparent distress. comfortable, Behavior is calm, quiet. Pain: ko1 Unable to use pain scale. Does not appear to understand pain scale. Vital Signs: 09:25 BP 118 / 57; Pulse 77; Resp 16; Temp 97.3(A); Pulse Ox 96% ; ko1 09:30 BP 119 / 58; Pulse 74; Resp 16; Pulse Ox 97% ; ko1 10:39 BP 123 / 48; Pulse 72; Resp 18; Pulse Ox 99% ; ko1 ED Course: 09:28 Patient arrived in ED. bd 09:30 Lay Calixto MD is Attending Physician. sp3 09:30 Maintain EMS IV. Dressing intact. Good blood return noted. Site clean \T\ dry. Gauge \T\ ko 1 site: 18g left AC. Flushed left antecubital with 5 ml normal saline. 09:30 Patient has correct armband on for positive identification. Bed in low position. Call ko1 light in reach. Provided Education on: NA. 09:30 Client placed on continuous cardiac and pulse oximetry monitoring. NIBP monitoring ko1 applied. school lunch monitor on. Door closed. Noise minimized. Warm blanket given. 09:48 Evie Macias, RN is Primary Nurse. ko1 09:48 Basic Metabolic Panel Sent. ko1 09:48 CBC with Diff Sent. ko1 09:48 LFT's Sent. ko1 09:48 Magnesium Sent. ko1 09:48 PT-INR Sent. ko1 09:48 Troponin HS Sent. ko1 09:52 Triage completed. ko1 10:11 CT Head C Spine In Process Unspecified. EDMS 11:02 Keith Jovel MD is Referral Physician. sp3 11:05 No provider procedures requiring assistance completed. IV discontinued, intact, ko1 bleeding controlled, No redness/swelling at site. Pressure dressing applied. Administered Medications: No medications were administered Outcome: 11:02 Discharge ordered by . sp3 11:05 Discharged to ko1 11:16 Discharged to home ambulatory. ss 11:16 Condition: good 11:16 Discharge instructions given to patient, family, Instructed on discharge instructions, follow up and referral plans. Demonstrated understanding of instructions, follow-up care. 11:17 Patient left the ED. Signatures: Dispatcher [employer] EDMS Magdalena Mccloud Shelby RN RN ss Lay Calixto MD MD sp3 Evie Macias RN RN ko1 Corrections: (The following items were deleted from the chart) 09:53 09:52 Home Meds: aspirin 81 mg Oral TbEC 1 tab once daily; ko1 ko1 10:36 09:25 Chief complaint: EMS states: called for a seizure, said she didn't fall ko1 to the floor but just slumped over a chair in her room. ko1
[2023-05-04 11:26] VITALS: TEMP 97.3
[2023-05-04 11:30] VITALS: BP 123/48; O2SAT 99
--- NOTE | 2023-05-05 14:14 | EKG ---
Test Date: 2023-05-04 Test Time: 09:36:20 Bender Hand: NATALIE MEASUREMENT RESULTS: Intervals: Rate: 72 NM: 154 QRSD: 132 QT: 430 QTc: 470 [place]: P: 55 NM: 154 QRS: -3 T: -9 INTERPRETIVE STATEMENTS: Normal sinus rhythm Right bundle branch block Abnormal ECG Compared to ECG 03/16/2021 09:09:29 T-wave abnormality no longer present Possible ischemia no longer present Electronically Signed On 05-05-23 14:11:22 CDT by Jacobo Dhaliwal
== END 2023-05-04 11:17 | disposition home or self-care (01) ==
LOC: ER 09:24
DX: G40.89 Other seizures (principal); Z86.73 Personal history of transient ischemic attack (TIA), and cerebral infarction without residual deficits; I10 Essential (primary) hypertension
CPT/HCPCS: 36415; 70450; 72125; 80048; 80076; 83735; 84484; 85025; 85610; 93005

== ENCOUNTER 2023-08-29 09:13 | Emergency (ER) | payer OTHER ==
--- OUTSIDE RECORDS SUMMARY | 2023-08-29 09:16 | XMS REPORT | Continuity of Care Document ---
:1935 Author Organization [facility] t Address [address] [facility] [address] [facility] 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 Social History Social Habit Start Date Stop Date Quantity Comments Source Sexual orientation [facility] History of Social 2023-07-16 2023-07-[address] [facility] function 00:00:00 00:00:00 Sex [birth year] Met [facility] 00:00:00 00:00:00 Smoking Status Start Date Stop Date Source Tobacco smoking consumption unknown [facility] Medications Ordered Filled Start Stop Current Ordering Indication Dosage Frequency Signature Comments Components Source Medication Medication Date Date Medication? Clinician (SIG) Name Name hydroCHLORO 2022-09 Yes 12.5mg QD Take 1 Me thodi thiazide 0-[address] (HYDRODIURI 12:15: (12.5 mg Ho spita L) 12.5 MG 03 total) by l tablet mouth every morning. atorvastati 2022-09 Yes 20mg QD Take 1 Meth mark n (LIPITOR) 0-23 tablet (20 st 20 mg 12:15: mg total) Hospita tablet 03 by mouth l every evening. donepeziL 2022-09 Yes 5mg QD Take 1 Method i (ARICEPT) 5 0-23 tablet (5 st MG tablet 12:15: mg total) Hos aristides 03 by mouth l daily. lisinopriL 2022-09 Yes 10mg QD Take 1 Metho di (PRINIVIL) 0-23 tablet (10 st 10 mg 12:15: mg total) Hospita tablet 03 by mouth l every morning. aspirin 2022-09 Yes 81mg QD Take 1 [facility] (ECOTRIN) 0-23 tablet (81 st 81 MG 12:15: mg total) Hospita enteric 03 by mouth l coated daily. tablet lacosamide 2022-09- Take 1 Meth mark (Vimpat) 50 0-22 08-24 tablet (50 s t mg tablet 00:00: 05:59 mg total) Ho spita tablet 00 :00 by mouth l daily for 7 days, THEN 1 tablet (50 mg total) 2 (two) times a day for 30 days. Vital Signs Vital Name Observation Time Observation Value Comments Source Systolic blood 2023-07-17 16:36:45 98 mm[Hg] [facility] pressure Diastolic blood 2023-07-17 16:36:45 52 mm[Hg] [facility] pressure Heart rate 2023-07-17 16:36:45 68 /min [facility] Body temperature 2023-07-17 16:36:[address] [facility] Respiratory rate 2023-07-17 16:36:45 16 /min [facility] Oxygen saturation in 2023-07-17 16:36:45 99 /min [facility] Arterial blood by Pulse oximetry Body height 2023-07-16 20:29:00 154.9 cm [facility] Body weight 2023-07-16 20:29:00 57.153 kg [facility] BMI 2023-07-16 20:29:00 23.81 kg/m2 [facility] Procedures Procedure Date / Time Performing Clinician Source Performed COMPREHENSIVE METABOLIC 2023-07-17 10:17:00 [facility] PANEL CBC WITH PLATELET AND 2023-07-17 10:17:00 [facility] DIFFERENTIAL ESTIMATED GFR 2023-07-17 10:17:00 [facility] TROPONIN T 2023-07-16 22:55:00 [facility] CREATINE KINASE, TOTAL 2023-07-16 19:24:00 [facility] ([facility]) LACTIC ACID LEVEL 2023-07-16 19:24:00 [facility] HEMOGLOBIN A1C 2023-07-16 19:24:00 [facility] THYROID STIMULATING 2023-07-16 19:24:00 [facility] HORMONE PROTHROMBIN TIME WITH INR 2023-07-16 19:24:00 [facility] URINE CULTURE 2023-07-16 17:25:00 [facility] URINALYSIS SCREEN AND 2023-07-16 17:25:00 [facility] MICROSCOPY, WITH REFLEX TO CULTURE TROPONIN T 2023-07-16 17:17:[address] [facility] CT CERVICAL SPINE WO 2023-07-16 16:27:[address] [facility] [address] HEAD WO CONTRAST 2023-07-16 16:26:46 Chan Edmundo Pitts [facility] ECG ED PRELIMINARY 2023-07-16 15:23[facility]ST 1 VW PORTABLE 2023-07-16 14:05:49 Chan Louiedoreen Hong [facility] ECG 12-LEAD 2023-07-16 13:48:[address] [facility] CBC WITH PLATELET AND 2023-07-16 13:38:00 Louie Gilesdoreen Hong [facility] DIFFERENTIAL BASIC METABOLIC PANEL 2023-07-16 13:38:00 Giles [facility] TROPONIN T 2023-07-16 13:38:00 [facility] ESTIMATED GFR 2023-07-16 13:38:00 [facility] Plan of Care Planned Activity Planned Date Details Comments Source Future Scheduled 2023-08-29 SHINGLES VACCINES (1 Met [facility] Test 09:16:11 of 2) [code = SHINGLES VACCINES (1 of 2)] Future Scheduled 2023-08-29 65+ PNEUMOCOCCAL [facility] Test 09:16:11 VACCINE (1 - PCV) [code = 65+ PNEUMOCOCCAL VACCINE (1 - PCV)] Future Scheduled 2023-08-29 COVID-19 VACCINE (3 - [facility] Test 09:16:11 season) [code = COVID-19 VACCINE (3 - season)] Future Scheduled 2023-08-29 INFLUENZA VACCINE (#1) [facility] Test 09:16:11 [code = INFLUENZA VACCINE (#1)] Encounters Start End Encounter Admission Attending Care Care Encounter Source Date/Time Date/Time Type Type Clinicians Facility Department ID 2023-07-16 2023-07-17 Emergency Edmundo Giles [id number] Method 08:22:00 12:15:00 Steven Hdez [id number] Hospit [id number] l .8 2023-07-16 2023-07-17 Outpatient BRODY [facility] [id number] [place] 00:00:00 00:00:[address] STEVEN [address] Results Test Description Test Time Test Comments Results Result Comments Source ECG 12 lead 2023-07-18 02:36:53 Test Item Value Reference Range Interpretation Comme nts Ventricular rate (test code = 253) 69 Atrial rate (test code = 255) 69 IL interval (test code = 266) 158 QRSD interval (test code = 260) 128 QT interval (test code = 264) 432 QTC interval (test code = 265) 462 P axis 1 (test code = 267) 59 QRS axis 1 (test code = 268) -12 T wave axis (test code = 270) -10 EKG impression (test code = 273) Normal sinus rhythm-Right bundle b ranch block-Abnormal ECG-No previous ECGs available- [facility] [id number] 17:39:00 Test Item Value Reference Range Interpretation Comments Urine culture (test SEE COMMENT Bacteriu shade screen code = [id number]) negative. [facility] Wo [id number] 16:31:32EXAM: CT CERVICAL SPINE WO CONTRAST CLINICAL HISTORY: neck pain after fall TECHNIQUE: Noncontrast enhanced imaging through the cervical spine was performed with coronal and sagittal reconstructed images. CT scans are performed using radiation dose reduction techniques (iterative reconstruction and/or automated exposure control). Technical factors are evaluated and adjusted to ensure appropriate moderation of exposure. Automated dose management technology is applied to adjust radiation exposure whileachieving a diagnostic quality image. COMPARISON: CT brain performed concurrently FINDINGS: There isless than 2 mm retrolisthesis of C3 on C4. There is a moderate anterior wedge compression deformity of the T3 vertebral body, of uncertain chronicity, likely long- standing. Subtle scoliotic curvature is present. Cervical alignment and vertebral body height are otherwise within normal limits. There is no evidence of acute fracture, suspicious osteolytic lesion, or suspicious osteoblastic lesion. No significant thecal sac stenosis is present. Chronic moderate to severe left C4-C5 foraminal narrowing. Otherwise no significant foraminal narrowing is seen. Visualized paraspinal soft tissues are unremarkable. No incidental thyroid nodules are noted. Visualized lung apices are without evidence of acute focal pneumonia or concerning nodule. IMPRESSION: 1.Likely chronic moderate anterior wedge compressiondeformity of the T3 vertebral body. No acute osseous abnormality of the cervical spine. If persistent concern for an acute fracture, MRI imaging can be obtained.2.No significant thecal sac stenosis. Chronic foraminal narrowing as detailed above. [id number] [id number] 16:29:10EXAM: CT HEAD WO CONTRAST CLINICAL HISTORY: fall head injury TECHNIQUE: Noncontrast enhanced images of the brain were obtained from the skull base to the vertex. Both soft tissue and bone reconstruction algorithms were performed. CT scans are performed using radiation dose reduction techniques (iterative reconstruction and/or automated exposure control). Technical factors are evaluated and adjusted to ensure appropriate moderation of exposure. Automated dose management technology is applied to adjust radiation exposure while achieving a diagnostic quality image. COMPARISON: 07/28/2006. 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 Large amount of encephalomalacia seen partly involving the right MCA distribution, particularly anteriorly. Overlying prior craniotomy is present. Compensatory ex vacuo dilatation of the right lateral ventricle and mild left to right midline shift. The schuster-white matter differentiation is otherwise preserved and without evidence of acute territorial infarction. Sulci and ventricles are otherwise mildly prominent fromage-related parenchymal volume loss. In addition, there is scattered subcortical and deep white matter hypoattenuation, likely reflective of chronic small vessel ischemic changes. There is no evidence for acute intracranial hemorrhage, mass, mass effect, hydrocephalus, or extra-axial fluid collection.Right orbit lens extraction. Left orbit is unremarkable. Paranasal sinuses are clear. Mastoid air cells are normally pneumatized. Vascular calcifications are noted, most prominent within the bilateral cavernous ICAs. Osseous structures are otherwise intact. IMPRESSION: No CT evidence for acute intracranial abnormality. Chronic findings detailed above. [id number] Preliminary Interpretation - Not an [id number] 15:23:56 Test Item Value Reference Range Interpretation Comments RADHA (test code = RADHA) Edmundo Giles MD 07/16/2023 3:35 [facility] ED Preliminary Interpretation - Not an Order Date/Time: 07/16/2023 10:23 AM Performed by: Edmundo Giles MDAuthorized by: Edmundo Giles MD Interpretation: Interpretation: abnormal Rate: ECG rate: 69 ECG rate assessment: normal Rhythm: Rhythm: sinus rhythm Ectopy: Ectopy: none QRS: QRS axis: Normal QRS intervals: Wide QRS conduction: RBBB Q waves: Abnormal Q-waves: not present Lab Interpretation Abnormal (test code = 93051-1) [facility] 1 Vw [id number] 14:40:09EXAMINATION: XR CHEST 1 VW PORTABLE CLINICAL HISTORY: SOB COMPARISON: Single chest from 08/01/2006 IMP RESSION: An AP radiograph of the chest was submitted for interpretation. Low lung volumes and bibasilar atelectasis. No pneumothorax or pleural effusion. No consolidation or pulmonary edema. The mediastinal contours and cardiac silhouette are unremarkable. Calcified atherosclerotic plaque. The bones are unremarkable. [id number]
--- NOTE | 2023-08-29 10:00 | RAD REPORT ---
EXAM DESCRIPTION: CT - [id number] - 08/29/2023 9:50 am CLINICAL HISTORY: Trauma, head and neck injury. DECLINING STATE COMPARISON: Head C Spine Mpr Wo Con dated 05/04/2023; Head C Spine Mpr Wo Con dated 08/18/2022 TECHNIQUE: Axial 5 mm thick images of the head were obtained. Axial 2 mm thick images of the cervical spine were obtained with sagittal and coronal reconstruction images generated and reviewed. All CT scans are performed using dose optimization technique as appropriate and may include automated exposure control or mA/KV adjustment according to patient size. FINDINGS: CT HEAD WITHOUT CONTRAST: No acute hemorrhage, hydrocephalus or extra-axial collection is identified.Large area of right fronta l and temporal encephalomalacia. Aneurysm clipping. The paranasal sinuses and mastoids are clear.Right frontal craniotomy. Right pterional craniectomy. CT CERVICAL SPINE WITHOUT CONTRAST: No acute fracture of the cervical spine. Remote T3 compression fracture. Probably remote or least sub acute T4 compression fracture with less than 20% loss of height.No prevertebral soft tissues swelling is identified. IMPRESSION: No acute intracranial or cervical spine findings.
--- NOTE | 2023-08-29 10:09 | RAD REPORT ---
EXAM DESCRIPTION: RAD - Chest Single View - 08/29/2023 10:04 am CLINICAL HISTORY: weakness COMPARISON: Chest Single View dated 08/18/2022; Chest Single View dated 03/16/2021 FINDINGS: Lines: None. Lungs: No evidence of edema or pneumonia. Pleural: No significant pleural effusions or pneumothorax. Cardiac: The heart size is within normal limits. Mediastinum: Within normal limits. Bones: No acute fractures. Other: None IMPRESSION: No acute cardiopulmonary disease.
[2023-08-29 10:25] LABS: Absolute Lymphocytes (CBC) 1.2 K/uL (0.7-4.9); Lymphocytes % 11.8 % (15.3-44.8); MCV 89.6 fL (80-100); MPV 7.6 fL (7.6-11.3); Platelets 325 thou/uL (152-406); RBC Red Blood Cell Count 4.35 M/uL (3.86-4.86)
[2023-08-29 10:34] LABS: Protime INR 0.95
[2023-08-29 10:48] LABS: Albumin 3.3 g/dL (3.4-5.0); Bilirubin Direct 0.2 mg/dL (0-0.2); Bilirubin Indirect, Calculated 0.6 mg/dL (0.2-0.8); Bilirubin Total 0.8 mg/dL (0.2-1.0); Magnesium 1.9 mg/dL (1.6-2.4); Potassium 3.4 mEq/L (3.5-5.1); Protein, Total 7.4 g/dL (6.4-8.2); Troponin High Sensitivity 25.3 pg/mL (<58.9)
[2023-08-29] MEDS ORDERED: FUROSEMIDE 20 MG/ 2ML VIAL ONE (11:13)
[2023-08-29 11:40] LABS: Urine Bacteria None Seen /HPF (<20); Urine Bilirubin NEGATIVE (Negative); Urine Blood Negative (Negative); Urine Clarity Clear (Clear); Urine Color Yellow (Yellow); Urine Glucose NEGATIVE (Negative); Urine Mucus 3+ /HPF (None Seen); Urine Protein 1+ (Negative); Urine Urobilinogen 2+ (Normal); Urine pH 5.5 (5.0-7.0)
[2023-08-29] MEDS ORDERED: POTASSIUM 25 MEQ EFFERV TAB ONE (12:40)
--- NOTE | 2023-08-29 20:13 | ER ---
Nurse's Notes [facility] Name: Jazmine Winchester Age: 88 yrs Sex: Female : 1935 Arrival Date: 08/29/2023 Time: 09:13 Bed 6 Private MD: Diagnosis: Other malaise and fatigue;Hypokalemia;Edema, unspecified;Other seizures Presentation: 08/29 09:38 Chief complaint: Generalized weakness and difficulty ambulating that started after hb seizure in bed 2 days ago. Hx of CVA w/ left sided weakness, seizures. Coronavirus screen: At this time, the client does not indicate any symptoms associated with coronavirus-19. Ebola Screen: No symptoms or risks identified at this time. Initial Sepsis Screen: Does the patient meet any 2 criteria? No. Patient's initial sepsis screen is negative. Does the patient have a suspected source of infection? No. Patient's initial sepsis screen is negative. Risk Assessment: Do you want to hurt yourself or someone else? Patient reports no desire to harm self or others. Onset of symptoms was August 27, 2023. 09:38 Method Of Arrival: Wheelchair hb 09:38 Acuity: FRANCES 3 hb Historical: - Allergies: 09:41 No Known Allergies; hb - Home Meds: 09:41 aspirin 81 mg Oral TbEC 1 tab once daily [Active]; donepezil oral [Active]; HCTZ hb [Active]; Lisinopril Oral [Active]; lacosamide oral [Active]; atorvastatin oral [Active]; - PMHx: 09:41 CVA; Left side; Hypertension; Osteoporosis; hb - PSHx: 09:41 brain surgery; hb - Immunization history:: Adult Immunizations unknown. - Social history:: Smoking status: Patient denies any tobacco usage or history of. Screenin:00 [facility] ED Fall Risk Assessment (Adult) History of falling in the last 3 months, ko1 including since admission No falls in past 3 months (0 pts) Confusion or Disorientation No (0 pts) Intoxicated or Sedated No (0 pts) Impaired Gait Yes (1 pt) Mobility Assist Device Used Yes (1 pt) Altered Elimination Yes (1 pt) Score/Fall Risk Level 3 or more points = High Risk Oriented to surroundings, Maintained a safe environment, Educated pt \T\ family on fall prevention, incl call for assistance when getting out of bed, Assessed \T\ reinforced patient's understanding of fall precautions, Provided non-skid footwear, Hourly rounding (assess needs \T\ fall precautionary measures) done, Used ambulatory aids as needed (educated on \T\ assisted with), Used gait belt as appropriate Implemented a Fall Risk Plan of Care, Apply high fall risk patient identification: yellow non skid footwear/ fall signage, Offered frequent toileting (1:1 observation), Remained with patient while ambulating, Utilized family, sitter, or virtual bar hostess as indicated. Abuse screen: Denies threats or abuse. Denies injuries from another. Nutritional screening: No deficits noted. Tuberculosis screening: No symptoms or risk factors identified. Assessment: 11:00 General: Appears in no apparent distress. ill, Behavior is calm, cooperative, ko1 appropriate for age. Pain: Denies pain. Neuro: Reports weakness in generalized. Cardiovascular: No deficits noted. Respiratory: No deficits noted. GI: No deficits noted. : No deficits noted. EENT: No deficits noted. Derm: No deficits noted. Musculoskeletal: No deficits noted. Vital Signs: 09:38 BP 102 / 67; Pulse 71; Resp 16; Temp 97.2; Pulse Ox 98% on R/A; Weight 57.15 kg; Height hb 5 ft. 1 in. ; Pain 0/10; 13:28 BP 110 / 61; Pulse 68; Resp 14; Pulse Ox 97% ; ko1 14:14 BP 121 / 84; Pulse 65; Resp 16; Pulse Ox 98% ; ko1 16:07 BP 101 / 77; Pulse 92; Resp 16; Pulse Ox 97% ; ko1 17:07 BP 110 / 66; Pulse 74; Resp 16; Pulse Ox 98% ; ko1 17:47 BP 122 / 57; Pulse 71; Resp 16; Pulse Ox 98% ; ko1 21:57 BP 147 / 59; Pulse 69; Resp 18; Pulse Ox 97% on R/A; la4 09:38 Body Mass Index 23.81 (57.15 kg, 154.94 cm) hb 09:38 Pain Scale: Adult hb Milly Coma Score: 09:43 Eye Response: spontaneous(4). Motor Response: obeys commands(6). Verbal Response: snw oriented(5). Total: 15. 21:57 Eye Response: spontaneous(4). Motor Response: obeys commands(6). Verbal Response: la4 oriented(5). Total: 15. NIH Stroke Scale Scores: 09:43 NIHSS Score: 7 snw ED Course: 09:16 Patient arrived in ED. im 09:32 [facility] Smiley [facility]-C [facility] snw 09:32 Arash Alba MD is Attending Physician. snw 09:41 Triage completed. hb 09:50 CT Head C Spine In Process Unspecified. EDMS 10:06 XRAY Chest (1 view) In Process Unspecified. EDMS 10:16 Initial lab(s) drawn, by me, sent to lab. First set of blood cultures drawn by me. em1 Inserted saline lock: 20 gauge in right antecubital area, using aseptic technique. Blood collected. 10:28 Evie Macias, RN is Primary Nurse. ko1 11:00 No provider procedures requiring assistance completed. ko1 11:00 Patient has correct armband on for positive identification. Placed in gown. Bed in low ko1 position. Call light in reach. Side rails up X2. Provided Education on: na. Client placed on continuous cardiac and pulse oximetry monitoring. NIBP monitoring applied. horse trader on. Door closed. Noise minimized. Lights dimmed. Warm blanket given. 11:07 Blood Culture Adult (2) Sent. ko1 11:31 Urine W/Microscopic (UAM) Sent. ko1 21:59 Vega cath removed intact, balloon deflated. IV discontinued, intact, bleeding la4 controlled, No redness/swelling at site. Pressure dressing applied. Administered Medications: 11:31 Drug: Furosemide IVP 20 mg IVP once; give over 2 minutes Route: IVP; Site: right ko1 antecubital; 13:51 Follow up: Response: No adverse reaction ko1 12:28 Drug: Potassium PO Effervescent Tablet 25 mEq PO once; dissolve in 4 ounces of water or ko1 juice Route: PO; 13:51 Follow up: Response: No adverse reaction ko1 22:27 Follow up: Response: No adverse reaction la4 20:40 Drug: Keppra IV 500 mg IV at calculated rate once; not to exceed 2,500 milligrams nw1 administer over 15 minutes Route: IV; Rate: calculated rate; Site: right antecubital; 21:58 Follow up: Response: No adverse reaction; IV Intake: 105ml la4 22:27 Follow up: Response: No adverse reaction; IV Intake: 100ml la4 20:40 Drug: Magnesium Oxide PO 400 mg PO once; administer with meals Route: PO; nw1 22:27 Follow up: Response: No adverse reaction la4 Medication: 11:00 VIS not applicable for this client. ko1 Intake: 18:51 PO: 120ml (Water); Total: 120ml. ko1 21:58 IV: 105ml; Total: 225ml. la4 22:27 IV: 100ml; Total: 325ml. la4 Output: 18:51 Urine: 1250ml (Voided); Total: 1250ml. ko1 Outcome: 20:12 Discharge ordered by . snw 22:26 Patient left the ED. la4 NIH Stroke Scale - NIH Stroke Score Date: 08/29/2023 Time: 09:43 Total Score = 7 10. Dysarthria (speech clarity - read or repeat words) - 0(Normal) 11. Extinction and Inattention (visual/tactile/auditory/spatial/personal) - 0(No abnormality) 1a. Level of Consciousness (LOC) - 0(Alert) 1b. Level of Consciousness (LOC) (Month \T\ Age) - 1(One) 1c. LOC Commands (Open \T\ Closes Eyes/School Operations Manager) - 0(Both) 2. Best Gaze (Lateral Gaze Paresis) - 0(Normal) 3. Visual Field Loss - 0(No visual loss) 4. Facial Palsy - 0(Normal) 5a. Left Arm: Motor (10-second hold) - 2(Drift, some effort against gravity) 5b. Right Arm: Motor (10-second hold) - 0(No drift) 6a. Left Leg: Motor (5-second hold - always test supine) - 2(Drift, some effort against gravity) 6b. Right Leg: Motor (5-second hold - always test supine) - 0(No drift) 7. Limb Ataxia (finger/nose \T\ heel/liao - test with eyes open) - 2(Present in two limbs) 8. Sensory Loss (pinprick arms/legs/face) - 0(Normal) 9. Best Language: Aphasia (description/naming/reading) - 0(No aphasia) Initials: snw Signatures: Dispatcher [employer] EDMS Vane Smiley, SPEEDER OPERATOR-C SPEEDER OPERATOR-Csnw Andrew Aguero em1 Ashia Nicholas, RN RN Evie Macias RN RN ko1 Laura Lr La'Rea, RN RN la4 Barby Sharp RN RN nw1 Corrections: (The following items were deleted from the chart) 09:41 09:38 Pulse 71bpm; Resp 16bpm; Pulse Ox 98% RA; Temp 97.2F; 57.15 kg; Height 5 hb ft. 1 in.; BMI: 23.8; Pain 0/10, Adult; hb
--- NOTE | 2023-08-29 20:13 | EDPHYS ---
Physician Documentation [facility] Name: Jazmine Winchester Age: 88 yrs Sex: Female : 1935 Arrival Date: 08/29/2023 Time: 09:13 Bed 6 Private MD: ED Physician Arash Alba HPI: 08/29 20:22 This 88 yrs old Female presents to ER via Wheelchair with complaints of General snw Weakness, Possible seizure, Sent by Dr. Dodd. 20:22 The patient's problem is reported as an apparent seizure, weakness, that is snw generalized. Onset: The symptoms/episode began/occurred acutely. Context: occurred at home, Possible contributing factors include: unknown. Severity of symptoms: At their worst the symptoms were moderate severe. The patient has experienced similar episodes in the past. The patient has been recently seen by a physician: the patient's primary care provider, with different complaint(s). Historical: - Allergies: 09:41 No Known Allergies; hb - Home Meds: :41 aspirin 81 mg Oral TbEC 1 tab once daily [Active]; donepezil oral [Active]; HCTZ hb [Active]; Lisinopril Oral [Active]; lacosamide oral [Active]; atorvastatin oral [Active]; - PMHx: 09:41 CVA; Left side; Hypertension; Osteoporosis; hb - PSHx: 09:41 brain surgery; hb - Immunization history:: Adult Immunizations unknown. - Social history:: Smoking status: Patient denies any tobacco usage or history of. ROS: 20:18 Eyes: Negative for injury, pain, redness, and discharge, ENT: Negative for injury, snw pain, and discharge, Neck: Negative for injury, pain, and swelling, Cardiovascular: Negative for chest pain, palpitations, and edema, Respiratory: Negative for shortness of breath, cough, wheezing, and pleuritic chest pain, Abdomen/GI: Negative for abdominal pain, nausea, vomiting, diarrhea, and constipation, Back: Negative for injury and pain, : Negative for injury, bleeding, discharge, and swelling, 20:18 Skin: Negative for injury, rash, and discoloration, 20:18 Constitutional: Positive for body aches, fatigue, malaise, 20:18 MS/extremity: Positive for swelling, 20:18 Neuro: Positive for seizure activity, weakness, sedation, Exam: 09:43 Head/Face: Normocephalic, atraumatic. Eyes: Pupils equal round and reactive to light, snw extra-ocular motions intact. Lids and lashes normal. Conjunctiva and sclera are non-icteric and not injected. Cornea within normal limits. Periorbital areas with no swelling, redness, or edema. ENT: Nares patent. No nasal discharge, no septal abnormalities noted. Tympanic membranes are normal and external auditory canals are clear. Oropharynx with no redness, swelling, or masses, exudates, or evidence of obstruction, uvula midline. Mucous membranes moist. Neck: Trachea midline, no thyromegaly or masses palpated, and no cervical lymphadenopathy. Supple, full range of motion without nuchal rigidity, or vertebral point tenderness. No Meningismus. Chest/axilla: Normal chest wall appearance and motion. Nontender with no deformity. No lesions are appreciated. Cardiovascular: Regular rate and rhythm with a normal S1 and S2. No gallops, murmurs, or rubs. Normal PMI, no JVD. No pulse deficits. Respiratory: Lungs have equal breath sounds bilaterally, clear to auscultation and percussion. No rales, rhonchi or wheezes noted. No increased work of breathing, no retractions or nasal flaring. Abdomen/GI: Soft, non-tender, with normal bowel sounds. No distension or tympany. No guarding or rebound. No evidence of tenderness throughout. Back: No spinal tenderness. No costovertebral tenderness. Full range of motion. Skin: Warm, dry with normal turgor. Normal color with no rashes, no lesions, and no evidence of cellulitis. MS/ Extremity: Pulses equal, no cyanosis. Neurovascular intact. Full, normal range of motion. 09:43 Constitutional: The patient appears alert, awake, listless, hx of right cva, aneurysm repair 09:43 Neuro: Orientation: is normal, Mentation: is normal, Motor: moves all fours, Gait: not tested. seizure activity, family reports seizure on Tuesday, malaise and fatigue/weakness since, 09:43 Special observations: previous right cva, 09:57 Radiologist reports: Dr. Henson reports no acute findings snw Vital Signs: 09:38 BP 102 / 67; Pulse 71; Resp 16; Temp 97.2; Pulse Ox 98% on R/A; Weight 57.15 kg; Height hb 5 ft. 1 in. ; Pain 0/10; 13:28 BP 110 / 61; Pulse 68; Resp 14; Pulse Ox 97% ; ko1 14:14 BP 121 / 84; Pulse 65; Resp 16; Pulse Ox 98% ; ko1 16:07 BP 101 / 77; Pulse 92; Resp 16; Pulse Ox 97% ; ko1 17:07 BP 110 / 66; Pulse 74; Resp 16; Pulse Ox 98% ; ko1 17:47 BP 122 / 57; Pulse 71; Resp 16; Pulse Ox 98% ; ko1 21:57 BP 147 / 59; Pulse 69; Resp 18; Pulse Ox 97% on R/A; la4 09:38 Body Mass Index 23.81 (57.15 kg, 154.94 cm) hb 09:38 Pain Scale: Adult hb NIH Stroke Scale Scores: 09:43 NIHSS Score: 7 snw Milly Coma Score: 09:43 Eye Response: spontaneous(4). Motor Response: obeys commands(6). Verbal Response: snw oriented(5). Total: 15. 21:57 Eye Response: spontaneous(4). Motor Response: obeys commands(6). Verbal Response: la4 oriented(5). Total: 15. MDM: 09:32 Patient medically screened. snw 11:08 Differential diagnosis: CVA, TIA, metabolic disorder, viral Infection, bacterial snw infection, UTI. Data reviewed: vital signs, nurses notes, lab test result(s), EKG, radiologic studies. I considered the following discharge prescriptions or medication management in the emergency department Medications were administered in the Emergency Department. See NOV. 20:19 Management of patient was discussed with the following: Primary Care Provider: Dr. Ju wright and Dr. Jovel. Dr. Jovel recommends tight control of electrolytes, magnesium ox 400mg po BID, Potassium 10meq bid prn taking her diuretic (has HCTZ as home). Change anticonvulsant to Keppra. Give 500mg Keppra IV now and then begin Keppra 500mg po BID at home. Pt will initially have some sedation. Family aware and agrees with plan of care. . Counseling: I had a detailed discussion with the patient and/or guardian regarding the historical points, exam findings, and any diagnostic results supporting the discharge/admit diagnosis, lab results, radiology results, the need for outpatient follow up, discussed hospice and family is amenable to this option. Response to treatment: the patient's symptoms have mildly improved after treatment, the patient's symptoms have markedly improved after treatment. Special discussion: Based on the history and exam findings, there is no indication for further emergent testing or inpatient evaluation. I discussed with the patient/guardian the need to see the neurologist for further evaluation of the symptoms. I discussed with the patient/guardian the need to see the primary care provider for further evaluation of the symptoms. 08/29 09:34 Order name: Basic Metabolic Panel; Complete Time: 10:51 snw 08/29 09:34 Order name: CBC with Diff; Complete Time: 10:35 snw 08/29 09:34 Order name: LFT's; Complete Time: 10:51 snw 08/29 09:34 Order name: Magnesium; Complete Time: 10:51 snw 08/29 09:34 Order name: NT PRO-BNP; Complete Time: 10:51 snw 08/29 09:34 Order name: PT-INR; Complete Time: 10:35 snw 08/29 09:34 Order name: Troponin HS; Complete Time: 10:51 snw 08/29 09:47 Order name: Lactate w/ 2H reflex if indic.; Complete Time: 10:51 snw 08/29 09:47 Order name: Urine W/Microscopic (UAM); Complete Time: 11:49 snw 08/29 09:47 Order name: Procalcitonin; Complete Time: 11:07 snw 08/29 09:47 Order name: Blood Culture Adult (2) snw 08/29 10:01 Order name: Flu; Complete Time: 11:09 snw 08/29 10:32 Order name: SARS-COV-2 RT PCR; Complete Time: 11:09 EDMS 08/29 09:34 Order name: CT Head C Spine; Complete Time: 10:01 snw 08/29 09:34 Order name: XRAY Chest (1 view); Complete Time: 10:11 snw 08/29 09:34 Order name: EKG; Complete Time: 09:35 snw 08/29 09:34 Order name: Cardiac monitoring; Complete Time: 10:55 snw 08/29 09:34 Order name: EKG - Nurse/Tech; Complete Time: 10:37 snw 08/29 09:34 Order name: IV Saline Lock; Complete Time: 10:37 snw 08/29 09:34 Order name: Labs collected and sent; Complete Time: 10:37 snw 08/29 09:34 Order name: O2 Per Protocol; Complete Time: 10:55 snw 08/29 09:34 Order name: O2 Sat Monitoring; Complete Time: 10:55 snw EC:08 Rate is 69 beats/min. Rhythm is regular. QRS [place] is Normal. PA interval is normal. QRS snw interval is prolonged. T waves are Inverted in leads III, V2, V3, V4, V5, V6. Clinical impression: NSR w/ Non-specific ST/T Changes. Administered Medications: 11:31 Drug: Furosemide IVP 20 mg IVP once; give over 2 minutes Route: IVP; Site: right ko1 antecubital; 13:51 Follow up: Response: No adverse reaction ko1 12:28 Drug: Potassium PO Effervescent Tablet 25 mEq PO once; dissolve in 4 ounces of water or ko1 juice Route: PO; 13:51 Follow up: Response: No adverse reaction ko1 22:27 Follow up: Response: No adverse reaction la4 20:40 Drug: Keppra IV 500 mg IV at calculated rate once; not to exceed 2,500 milligrams nw1 administer over 15 minutes Route: IV; Rate: calculated rate; Site: right antecubital; 21:58 Follow up: Response: No adverse reaction; IV Intake: 105ml la4 22:27 Follow up: Response: No adverse reaction; IV Intake: 100ml la4 20:40 Drug: Magnesium Oxide PO 400 mg PO once; administer with meals Route: PO; nw1 22:27 Follow up: Response: No adverse reaction la4 Disposition Summary: 08/29/23 20:12 Discharge Ordered Notes: Location: Home snw Condition: Stable snw Diagnosis - Other malaise and fatigue snw - Hypokalemia snw - Edema, unspecified snw - Other seizures snw Followup: snw - With: Emergency Department - When: As needed - Reason: Worsening of condition Followup: snw - With: Private Physician - When: 1 week - Reason: Recheck today's complaints, Continuance of care, Re-evaluation by your physician Discharge Instructions: - Discharge Summary Sheet snw - Potassium Content of Foods snw - Seizure, Adult snw - Fatigue snw - Hospice snw - Hypokalemia snw Forms: - Medication Reconciliation Form snw - Thank You Letter snw - Antibiotic Education snw - Prescription Opioid Use snw - Patient Portal Instructions snw - Leadership Thank You Letter snw Prescriptions: - magnesium oxide 420 mg Oral tablet - take 1 tablet ORAL route 2 times per day; 60 tablet; Refills: 0, Product snw Selection Permitted - Keppra 500 mg Oral tablet - take 1 tablet ORAL route every 12 hours; 40 tablet; Refills: 0, Product snw Selection Permitted - Potassium Chloride 10 mEq Oral capsule, extended release - take 1 tablet ORAL route every 12 hours; 60 tablet; Refills: 0, Product snw Selection Permitted NIH Stroke Scale - NIH Stroke Score Date: 08/29/2023 Time: 09:43 Total Score = 7 10. Dysarthria (speech clarity - read or repeat words) - 0(Normal) 11. Extinction and Inattention (visual/tactile/auditory/spatial/personal) - 0(No abnormality) 1a. Level of Consciousness (LOC) - 0(Alert) 1b. Level of Consciousness (LOC) (Month \T\ Age) - 1(One) 1c. LOC Commands (Open \T\ Closes Eyes/Machine Tester) - 0(Both) 2. Best Gaze (Lateral Gaze Paresis) - 0(Normal) 3. Visual Field Loss - 0(No visual loss) 4. Facial Palsy - 0(Normal) 5a. Left Arm: Motor (10-second hold) - 2(Drift, some effort against gravity) 5b. Right Arm: Motor (10-second hold) - 0(No drift) 6a. Left Leg: Motor (5-second hold - always test supine) - 2(Drift, some effort against gravity) 6b. Right Leg: Motor (5-second hold - always test supine) - 0(No drift) 7. Limb Ataxia (finger/nose \T\ heel/liao - test with eyes open) - 2(Present in two limbs) 8. Sensory Loss (pinprick arms/legs/face) - 0(Normal) 9. Best Language: Aphasia (description/naming/reading) - 0(No aphasia) Initials: snw Addendum: 08/31/2023 13:34 Co-signature as Attending Physician, Arash Alba MD I reviewed the patient's rn care provided by the Advanced Practice Provider and agree with the diagnosis and treatment plan. Signatures: Dispatcher [employer] EDMS Vane Smiley, WEIGHT CONTROL LECTURER-C WEIGHT CONTROL LECTURER-Csnw Arash Alba MD MD rn Baxter, Heather, RN RN hb Evie Macias RN RN ko1 Barby Sharp RN RN nw1 Najma Mcgrath RN la4 Corrections: (The following items were deleted from the chart) 08/29 10:32 10:02 SARS-COV-2 Antigen Rapid+I.LAB.BRZ ordered. EDMS EDMS
[2023-08-29] MEDS ORDERED: LEVETIRACETAM 500 MG/5 ML VIAL IV ONE ×2 (20:36→21:22)
[2023-08-29] MEDS ORDERED: MAGNESIUM OXIDE 400 MG TAB ONE (20:36)
[2023-08-29] MEDS ORDERED: NA CHLORIDE 0.9% 100 ML ONE ×2 (20:37→21:23)
[2023-08-29 23:07] VITALS: TEMP 97.2
[2023-08-29 23:17] VITALS: BP 147/59; O2SAT 97
--- NOTE | 2023-08-30 13:31 | EKG ---
Test Date: 2023-08-29 Test Time: 10:08:24 Coating Supervisor: MORENITA MEASUREMENT RESULTS: Intervals: Rate: 69 GA: 148 QRSD: 126 QT: 414 QTc: 443 [place]: P: 63 GA: 148 QRS: -14 T: -18 INTERPRETIVE STATEMENTS: Normal sinus rhythm Right bundle branch block Abnormal ECG Compared to ECG 05/04/2023 09:36:20 No significant changes Electronically Signed On 08-30-23 13:27:18 MEMORIAL COUNSELOR by Jacobo Dhaliwal
== END 2023-08-29 22:26 | disposition home or self-care (01) ==
LOC: ER 09:13
DX: R53.81 Other malaise (principal); R53.83 Other fatigue; E87.6 Hypokalemia; R60.9 Edema, unspecified; R56.9 Unspecified convulsions; I10 Essential (primary) hypertension; Z11.52 Encounter for screening for COVID-19; Z86.73 Personal history of transient ischemic attack (TIA), and cerebral infarction without residual deficits; Z79.82 Long term (current) use of aspirin
CPT/HCPCS: 93005; 87040 ×2; 85025; 81001; 80048; 36415; 83735; 85610; 80076; 83605; 84484; 84145; 83880; 87635; 87804 ×2; 70450; 72125; 71045; 96375; 96374; 99285; J1953 ×2; J1940

== ENCOUNTER → 2023-11-02 | Emergency (ER) | payer OTHER ==
[~2023-11-02] MED LIST: KCL 20 MEQ/100 mL IVPB 100 ML IV ONE; NA CHLORIDE 0.9% 250 ML ONE
--- NOTE | 2023-11-02 14:38 | RAD REPORT ---
EXAM DESCRIPTION: CT - [id number] - 11/02/2023 2:15 pm CLINICAL HISTORY: fall COMPARISON: Head C Spine Mpr Wo Con dated 08/29/2023; Head C Spine Mpr Wo Con dated 05/04/2023; Head C Spine Mpr Wo Con dated 08/18/2022 TECHNIQUE: Axial thin cut noncontrast CT images of the head were obtained. Axial thin cut noncontrast CT images of the cervical spine were obtained. Multiplanar reformatted images were generated and reviewed. All CT scans are performed using dose optimization technique as appropriate and may include automated exposure control or mA/KV adjustment according to patient size. FINDINGS: CT HEAD WITHOUT CONTRAST: Small volume right high frontal lobe subarachnoid hemorrhage. Small volume areas of deep sulcal high left frontoparietal subarachnoid hemorrhage as well. Stable areas of encephalomalacia involving the r ight operculum and right frontal region underlying aseptic oral craniectomy. No hydrocephalus or extr a-axial collection is identified.No areas of brain edema or midline shift. The paranasal sinuses and mastoids are clear.The calvarium is intact. CT CERVICAL SPINE WITHOUT CONTRAST: No fracture or subluxation of the cervical spine. Endplate compression deformities at T2, T3, and T4, with mildly progressive degree of anterior compression at T3 since the prior CT.No prevertebral soft tissues swelling is identified. IMPRESSION: Small volume right high frontal and left frontoparietal subarachnoid hemorrhage. Mildly progressive degree of anterior compression deformity along vertebral body of T3 since the prio r exam. Other compression deformities at T2 and T4 appear stable. The findings were communicated to Rich Case on 11/02/2023 at 14:32 hours.
[2023-11-02 14:55] LABS: Absolute Lymphocytes (CBC) 0.9 K/uL (0.7-4.9); Hematocrit 38.9 % (36.0-45.0); Lymphocytes % 17.5 % (15.3-44.8); MCV 87.2 fL (80-100); MPV 7.5 fL (7.6-11.3); Platelets 281 thou/uL (152-406); RBC Red Blood Cell Count 4.46 M/uL (3.86-4.86)
--- NOTE | 2023-11-02 14:55 | ER ---
Nurse's Notes [facility] Name: Jazmine Winchester Age: 88 yrs Sex: Female : 1935 Arrival Date: 11/02/2023 Time: 13:54 Bed 18 Private MD: Diagnosis: Traumatic subarachnoid hemorrhage;Fall on same level, unspecified;Scalp Laceration/ Open wound of scalp;Laceration without foreign body of left hand;Compression fracture T2 Presentation: 11/02 13:56 Chief complaint: EMS states: FALL FROM STANDING WITH LOC. Care prior to arrival: None. bp Mechanism of Injury: Fall from standing position. Trauma event details: Injury occurred in the [facility], Injury occurred: at home. Injury occurred: November 02, 2023 Injury occurred at: 13:00. 13:56 Acuity: FRANCES 3 bp 13:56 Method Of Arrival: EMS: [facility] bp 13:56 Care prior to arrival: Glucose check: 105. bp 15:00 Onset of symptoms was November 02, 2023. db 15:18 Coronavirus screen: Client denies travel out of the [place] in the last 14 days. At this db time, the client does not indicate any symptoms associated with coronavirus-19. Ebola Screen: Patient negative for fever greater than or equal to 101.5 degrees Fahrenheit, and additional compatible Ebola Virus Disease symptoms Patient denies exposure to infectious person. Patient denies travel to an Ebola-affected area in the 21 days before illness onset. No symptoms or risks identified at this time. Initial Sepsis Screen: Does the patient meet any 2 criteria? No. Patient's initial sepsis screen is negative. Does the patient have a suspected source of infection? No. Patient's initial sepsis screen is negative. Risk Assessment: Do you want to hurt yourself or someone else? Patient reports no desire to harm self or others. Trauma Activation: Alert Physician: ED Physician; Name: ; Notified At: ; Arrived At: Physician: General Surgeon; Name: ; Notified At: ; Arrived At: Physician: Radiology; Name: ; Notified At: ; Arrived At: Physician: Respiratory; Name: ; Notified At: ; Arrived At: Physician: Lab; Name: ; Notified At: ; Arrived At: Historical: - Home Meds: 15:01 lisinopril Oral [Active]; hctz [Active]; lacosamide oral [Active]; donepezil oral db [Active]; atorvastatin oral [Active]; aspirin 81 mg Oral TbEC 1 tab once daily [Active]; - PMHx: 15:01 CVA; Left side; Hypertension; Osteoporosis; db - PSHx: 15:01 brain surgery; db - Immunization history: Last tetanus immunization: unknown. - Social history:: Smoking status: Patient denies any tobacco usage or history of. Screenin:56 Abuse screen: Denies threats or abuse. Denies injuries from another. Tuberculosis bp screening: No symptoms or risk factors identified. 15:15 [facility] ED Fall Risk Assessment (Adult) History of falling in the last 3 months, db including since admission Yes- fall prone (multiple falls) (3 pts) Confusion or Disorientation Yes (5 pts) Intoxicated or Sedated Yes (3 pts) Impaired Gait No (0 pts) Mobility Assist Device Used Yes (1 pt) Altered Elimination No (0 pt) Score/Fall Risk Level 3 or more points = High Risk Oriented to surroundings, Maintained a safe environment. Nutritional screening: No deficits noted. Primary Survey: 13:56 NO uncontrolled hemorrhage observed. A: The client is awake and alert. The airway is bp patent. Breathing/Chest: Spontaneous respiratory effort, equal unlabored respirations, breath sounds clear bilaterally, regular pattern, symmetrical chest rise and fall. Circulation: No external hemorrhage present. Regular and strong central pulse, skin warm/dry/normal color. Disability Client is alert. Exposure/Environment: There is no evidence of uncontrolled external bleeding. Obvious injury(ies) are noted at this time: LEFT HAND SKIN TEAR, LEFT MASTOID LAC. 15:17 Reassessment Alertness and Airway: Awake and alert. The airway is patent. Airway Patent db Breathing: Spontaneous respiratory effort, equal unlabored respirations, breath sounds clear bilaterally, regular pattern with symmetrical chest rise and fall. Respiratory effort Spontaneous Unlabored Respiratory pattern Regular Circulation: No external hemorrhage noted. Regular and strong central pulse, skin warm/dry/normal color. Assessment: 13:56 General: Appears in no apparent distress. Behavior is calm, cooperative. Pain: Denies bp pain. Neuro: Level of Consciousness is awake, obeys commands, confused, Oriented to person. Injury Description: LEFT HAND SKIN TEAR, LEFT MASTOID LAC AND BRUISING. 14:20 Reassessment: Patient appears in no apparent distress at this time. Patient and/or db family updated on plan of care and expected duration. Pain level reassessed. 15:00 Reassessment: Patient appears in no apparent distress at this time. Patient and/or db family updated on plan of care and expected duration. Pain level reassessed. PATIENT WOUND WRAPPED AND CLEANED. WET TO DRY DRESSING APPLIED. Neuro: Level of Consciousness is awake, obeys commands, Oriented to person. Respiratory: Airway is patent Respiratory effort is even, unlabored, Respiratory pattern is regular, symmetrical. 15:13 Reassessment: REPORT TO CATALINA BARR AT [facility] ER, LIFEFLIGHT EN ROUTE 5-10 MIN. bp 15:25 Reassessment: LIFE FLIGHT TEAM ARRIVED FOR PATIENT. db Vital Signs: 13:56 BP 129 / 74; Pulse 65; Resp 16; Temp 98; Pulse Ox 98% ; bp 14:36 Weight 57.15 kg; Height 5 ft. 0 in. ; ap3 14:40 BP 129 / 53; Pulse 60; Resp 18; Pulse Ox 99% on R/A; db 15:13 BP 135 / 49; Pulse 58; Resp 18; Pulse Ox 100% ; bp 14:36 Body Mass Index 24.61 (57.15 kg, 152.4 cm) ap3 Milly Coma Score: 13:56 Eye Response: spontaneous(4). Motor Response: obeys commands(6). Verbal Response: bp confused(4). Total: 14. Trauma Score (Adult): 13:56 Eye Response: spontaneous(1); Verbal Response: confused(1); Motor Response: obeys bp commands(2); Systolic BP: > 89 mm Hg(4); Respiratory Rate: 10 to 29 per min(4); Milly Score: 14; Trauma Score: 12 ED Course: 13:56 Patient arrived in ED. bp 13:56 Patient has correct armband on for positive identification. bp 13:56 Patient maintains SpO2 saturation greater than 95% on room air. bp 13:57 Triage completed. bp 13:58 Rich Case DO is Attending Physician. ms3 14:17 CT Head C Spine In Process Unspecified. EDMS 14:33 Hand Left 3 View In Process Unspecified. EDMS 14:42 Skip Laws, RN is Primary Nurse. bp 14:55 Maintain EMS IV. Dressing intact. Good blood return noted. Site clean \T\ dry. Gauge \T\ db site: 20. 15:06 Inserted saline lock:. db 15:15 No provider procedures requiring assistance completed. Patient transferred, IV remains bp in place. 15:16 Provided Education on: TRANSFER. db 15:18 Arm band placed on Patient placed in an exam room. db 15:18 Thermoregulation: warm blanket given to patient. db 15:21 Notified ED physician of a critical lab result(s). K 2.6. ll1 15:30 initiated transfer to [facility], pt accepted in transfer to ER by Dr Gee, admin bd approval given by Shayla Santacruz. Administered Medications: 15:27 Drug: Potassium Chloride IV 20 mEq IV at per protocol once; administer over 1-2 hours db Route: IV; Rate: per protocol; Site: right antecubital; 15:27 Drug: NS 0.9% IV 1000 ml IV at 125 ml/hr continuous Route: IV; Rate: 125 ml/hr; Site: db right antecubital; Medication: 15:15 VIS not applicable for this client. db Intake: 13:56 IV: 0ml; Total: 0ml. bp Outcome: 14:54 ER care complete, transfer ordered by . ms3 15:14 Transferred by helicopter to [facility], Transfer form completed. bp 15:14 Condition: stable 15:14 Instructed on the need for transfer, 15:17 Patient's length of stay was not longer than 2 hours. db 15:29 Patient left the ED. db Signatures: Dispatcher [employer] EDMS Magdalena Mccloud Brian, MOMO BARR bp Kristi Cox RN RN ap3 Christopher Jay RN RN ll1 Rich Case DO DO ms3 Jennie Gibbons, RN RN db Corrections: (The following items were deleted from the chart) 15:07 15:00 Reassessment: Patient appears in no apparent distress at this time. Patient db and/or family updated on plan of care and expected duration. Pain level reassessed. Patient is alert, oriented x 3, equal unlabored respirations, skin warm/dry/pink. PATIENT WOUND WRAPPED AND CLEANED. WET TO DRY DRESSING APPLIED db
--- NOTE | 2023-11-02 14:55 | EDPHYS ---
Physician Documentation [facility] Name: Jazmine Winchester Age: 88 yrs Sex: Female : 1935 Arrival Date: 11/02/2023 Time: 13:54 Bed 18 Private MD: ED Physician Rich Case HPI: 11/02 14:59 This 88 yrs old Female presents to ER via EMS with complaints of Fall Injury. ms3 14:59 88-year-old female with past medical history of mild dementia, seizures, hyperlipidemia ms3 presents for fall that occurred approximately 1 minute prior to arrival. Family notes patient did have loss of consciousness. Patient's family states patient was looking out the window when she lost her balance and grabbed a rolling chair causing her to fall and hit the windowsill. Patient denies pain at this time. Patient denies any nausea or vomiting. Historical: - Home Meds: 15:01 lisinopril Oral [Active]; hctz [Active]; lacosamide oral [Active]; donepezil oral db [Active]; atorvastatin oral [Active]; aspirin 81 mg Oral TbEC 1 tab once daily [Active]; - PMHx: 15:01 CVA; Left side; Hypertension; Osteoporosis; db - PSHx: 15:01 brain surgery; db - Immunization history: Last tetanus immunization: unknown. - Social history:: Smoking status: Patient denies any tobacco usage or history of. ROS: 14:59 Constitutional: Negative for fever, and chills. ENT: Negative for injury, pain, and ms3 discharge, Neck: Negative for injury, pain, and swelling, Cardiovascular: Negative for chest pain, and palpitations. Respiratory: Negative for shortness of breath, cough, wheezing, and pleuritic chest pain, Abdomen/GI: Negative for abdominal pain, nausea, vomiting, diarrhea, and constipation, Neuro: Negative for headache, weakness, numbness, tingling. 14:59 All other systems are negative, 14:59 Skin: Positive for laceration(s), ms3 Exam: 14:59 Constitutional: This is a well developed, well nourished patient who is awake, alert, ms3 and in no acute distress. Head/Face: Normocephalic, atraumatic. Neck: Trachea midline, no cervical lymphadenopathy. Supple, full range of motion without nuchal rigidity, or vertebral point tenderness. No Meningismus. Chest/axilla: Normal chest wall appearance and motion. Nontender with no deformity. Cardiovascular: Regular rate and rhythm with a normal S1 and S2. No gallops, murmurs, or rubs. Normal PMI, no JVD. No pulse deficits. Respiratory: Lungs have equal breath sounds bilaterally, clear to auscultation and percussion. No rales, rhonchi or wheezes noted. No increased work of breathing, no retractions or nasal flaring. Abdomen/GI: Soft, non-tender, with normal bowel sounds. No distension or tympany. No guarding or rebound. No evidence of tenderness throughout. 14:59 Skin: injury, laceration(s), the wound is approximately 10 cm(s), of the Left hand, the second wound is approximately 4 cm(s), of the Left side scalp , Vital Signs: 13:56 BP 129 / 74; Pulse 65; Resp 16; Temp 98; Pulse Ox 98% ; bp 14:36 Weight 57.15 kg; Height 5 ft. 0 in. ; ap3 14:40 BP 129 / 53; Pulse 60; Resp 18; Pulse Ox 99% on R/A; db 15:13 BP 135 / 49; Pulse 58; Resp 18; Pulse Ox 100% ; bp 14:36 Body Mass Index 24.61 (57.15 kg, 152.4 cm) ap3 Milly Coma Score: 13:56 Eye Response: spontaneous(4). Motor Response: obeys commands(6). Verbal Response: bp confused(4). Total: 14. Trauma Score (Adult): 13:56 Eye Response: spontaneous(1); Verbal Response: confused(1); Motor Response: obeys bp commands(2); Systolic BP: > 89 mm Hg(4); Respiratory Rate: 10 to 29 per min(4); Milly Score: 14; Trauma Score: 12 MDM: 13:58 Patient medically screened. ms3 14:59 Differential diagnosis: abrasion, closed head injury, contusion, fracture. Data ms3 reviewed: vital signs, nurses notes, and as a result, I will Transfer patient to higher level of care. Consideration of Admission/Observation Patient transferred to higher level of care. Management of patient was discussed with the following: Renal Technician: [facility] neurosurgery. Independent interpretation of the following test(s) in the Emergency Department CT Scan: My interpretation is CT head without contrast images reviewed reveal intracranial hemorrhage. Historians other than the Patient: EMS: [facility]. Care significantly affected by the following chronic conditions: Dementia, seizures, hyperlipidemia. Counseling: I had a detailed discussion with the patient and/or guardian regarding the historical points, exam findings, and any diagnostic results supporting the discharge/admit diagnosis, radiology results, the need to transfer to another facility, for higher level of care, [facility] does not immediately have the required specialist. ED course: Discussed necessity for transfer due to subarachnoid hemorrhage with the patient and her family. They understand and agree with plan. Case discussed with neurosurgery at [facility] and they accept patient to their emergency department. 11/02 14:04 Order name: Basic Metabolic Panel; Complete Time: 15:21 ms3 11/02 14:04 Order name: CBC with Diff; Complete Time: 15:21 ms3 11/02 14:04 Order name: Type And Screen ms3 11/02 14:04 Order name: CT Head C Spine; Complete Time: 14:55 ms3 11/02 14:25 Order name: Hand Left 3 View EDMS 11/02 14:04 Order name: Labs collected and sent; Complete Time: 15:06 ms3 Administered Medications: 15:27 Drug: Potassium Chloride IV 20 mEq IV at per protocol once; administer over 1-2 hours db Route: IV; Rate: per protocol; Site: right antecubital; 15:27 Drug: NS 0.9% IV 1000 ml IV at 125 ml/hr continuous Route: IV; Rate: 125 ml/hr; Site: db right antecubital; Disposition Summary: 11/02/23 14:54 Transfer Ordered Notes: Transfer Location: [facility] ms3 Reason: Higher level of care ms3 Condition: Stable ms3 Problem: new ms3 Symptoms: are unchanged ms3 Accepting Physician: (11/02/23 15:29) db Diagnosis - Traumatic subarachnoid hemorrhage ms3 - Fall on same level, unspecified ms3 - Scalp Laceration/ Open wound of scalp ms3 - Laceration without foreign body of left hand ms3 - Compression fracture T2 ms3 Forms: - Medication Reconciliation Form ms3 - SBAR form ms3 Critical care time excluding procedures: 14:59 Critical care time: Bedside Care: 30 minutes, Consultation: 5 minutes, Family ms3 Intervention: 10 minutes. Total time: 45 minutes Signatures: Dispatcher [employer] EDRomel Sanchez MD MD cha Peltier, Brian, RN RN Rich Benson DO DO ms3 Jennie Gibbons, RN RN db Corrections: (The following items were deleted from the chart) 15:01 14:59 Constitutional: Negative for fever, and chills. ENT: Negative for injury, pain, ms3 and discharge, Neck: Negative for injury, pain, and swelling, Cardiovascular: Negative for chest pain, and palpitations. Respiratory: Negative for shortness of breath, cough, wheezing, and pleuritic chest pain, Abdomen/GI: Negative for abdominal pain, nausea, vomiting, diarrhea, and constipation, Skin: Negative for injury, rash, and discoloration, Neuro: Negative for headache, weakness, numbness, tingling. ms3 15:29 14:54 ms3 db
[2023-11-02 15:20] LABS: Potassium 2.6 mEq/L (3.5-5.1)
--- NOTE | 2023-11-02 15:56 | RAD REPORT ---
EXAM DESCRIPTION: AARON JARQUIN - 11/02/2023 2:31 pm CLINICAL HISTORY: FALL COMPARISON: Hand Left 3 View dated 09/06/2018 TECHNIQUE: Left hand, 3 views. FINDINGS: No fracture is identified. Persistent flexion along the interphalangeal joints to variable degrees. There is no dislocation or p eriosteal reaction noted. Joint alignment is maintained. [id number] degenerative changes at the thumb base and scaphoid m ultangular articulations. No foreign body. Soft tissue irregularity along the dorsum the hand. IMPRESSION: No acute osseous abnormality. Persistent flexion along the interphalangeal joints as abo ve.
[2023-11-03 23:03] VITALS: TEMP 98
[2023-11-03 23:24] VITALS: BP 135/49; O2SAT 100
== END ==
LOC: ER 13:54
DX: S06.6X0A Traumatic subarachnoid hemorrhage without loss of consciousness, initial encounter (principal); S01.01XA Laceration without foreign body of scalp, initial encounter; S61.412A Laceration without foreign body of left hand, initial encounter; S22.029A Unspecified fracture of second thoracic vertebra, initial encounter for closed fracture; W18.30XA Fall on same level, unspecified, initial encounter; I10 Essential (primary) hypertension; Z86.73 Personal history of transient ischemic attack (TIA), and cerebral infarction without residual deficits; Z79.82 Long term (current) use of aspirin
CPT/HCPCS: 85025; 80048; 36415; 86900; 86850; 86901; 70450; 72125; 73130; J3480; J7050

== ENCOUNTER 2024-02-04 13:34 | Emergency (ER) | payer OTHER ==
[2024-02-04] MEDS ORDERED: LIDOCAINE 1% MPF 5 ML VIAL ONE (14:36)
--- NOTE | 2024-02-04 14:53 | RAD REPORT ---
EXAM DESCRIPTION: CT - [id number] - 02/04/2024 2:43 pm CLINICAL HISTORY: Trauma, head and neck injury. TRAUMA COMPARISON: Head C Spine Mpr Wo Con dated 11/02/2023; Head C Spine Mpr Wo Con dated 08/29/2023; Head C Spine Mpr Wo Con dated 05/04/2023; Head C Spine Mpr Wo Con dated 08/18/2022 TECHNIQUE: Axial 5 mm thick images of the head were obtained. Axial 2 mm thick images of the cervical spine were obtained with sagittal and coronal reconstruction images generated and reviewed. All CT scans are performed using dose optimization technique as appropriate and may include automated exposure control or mA/KV adjustment according to patient size. FINDINGS: CT HEAD WITHOUT CONTRAST: No acute hemorrhage, hydrocephalus or extra-axial collection is identified.Large amount of gliosis ri ght cerebellar hemisphere. The paranasal sinuses and mastoids are clear.Previous right-sided craniotomy. CT CERVICAL SPINE WITHOUT CONTRAST: No fracture or subluxation.No prevertebral soft tissues swelling is identified. IMPRESSION: No acute intracranial or cervical spine findings.
--- NOTE | 2024-02-04 15:35 | EDPHYS ---
Physician Documentation [facility] Name: Jzamine Winchester Age: 88 yrs Sex: Female : 1935 Arrival Date: 02/04/2024 Time: 13:34 Bed 18 Private MD: ED Physician Mac Glass HPI: 02/03 13:48 This 88 yrs old Female presents to ER via Wheelchair with complaints of Fall Injury. [facility] 13:48 88-year-old female presents to the ER post fall. The patient's states that when [facility] changing position, her feet became tangled, and she slipped. She hit her posterior scalp and her glasses cut her left ear. Has a history of stroke, osteoporosis, hypertension, and an intracranial bleed in October. Denies dizziness, syncope, headache, vision changes, speech changes, or any other symptoms at this time.. Historical: - Allergies: 13:47 No Known Allergies; ll1 - PMHx: 13:47 CVA; Left side; Hypertension; Osteoporosis; ll1 - PSHx: 13:47 brain surgery; ll1 - Immunization history:: Adult Immunizations up to date. - Infectious Disease History:: Denies. - Social history:: Smoking status: Patient denies any tobacco usage or history of. ROS: 13:48 Constitutional: Per HPI [facility] Exam: 13:48 Skin: injury, laceration(s), the wound is approximately 1.5 cm(s), of the left ear, [facility] 17:34 Constitutional: This is a well developed, well nourished patient who is awake, alert, 7 and in no acute distress. Head/Face: Normocephalic, atraumatic. Neck: Trachea midline, no thyromegaly or masses palpated, and no cervical lymphadenopathy. Supple, full range of motion without nuchal rigidity, or vertebral point tenderness. No Meningismus. Cardiovascular: Regular rate and rhythm with a normal S1 and S2. No gallops, murmurs, or rubs. Normal PMI, no JVD. No pulse deficits. Respiratory: Lungs have equal breath sounds bilaterally, clear to auscultation and percussion. No rales, rhonchi or wheezes noted. No increased work of breathing, no retractions or nasal flaring. Abdomen/GI: Soft, non-tender, with normal bowel sounds. No distension or tympany. No guarding or rebound. No evidence of tenderness throughout. Back: No spinal tenderness. No costovertebral tenderness. Full range of motion. MS/ Extremity: Pulses equal, no cyanosis. Neurovascular intact. Full, normal range of motion. Neuro: Awake and alert, GCS 15, oriented to person, place, time, and situation. Vital Signs: 13:48 BP 161 / 77; Pulse 61; Resp 16; Temp 97.3; Pulse Ox 100% ; Weight 58.51 kg; Height 5 ll1 ft. 0 in. ; Pain 0/10; 14:55 BP 153 / 84; Pulse 76; Resp 18; Pulse Ox 98% on R/A; rs5 16:01 BP 155 / 81; Pulse 70; Resp 18; Pulse Ox 99% on R/A; rs5 13:48 Body Mass Index 25.19 (58.51 kg, 152.4 cm) ll1 13:48 Pain Scale: Adult ll1 Laceration: 17:34 Wound Repair of 1.5cm ( 0.6in ) subcutaneous laceration to left ear. Distal [facility] neuro/vascular/tendon intact. Anesthesia: Local anesthetic administered with 3 mls of 1% lidocaine. Wound prep: Moderate cleansing with hibiclenz. Skin closed with 4 5-0 Prolene using simple sutures and sterile technique. Dressed with non-adherent dressing. Patient tolerated well. MDM: 13:52 Patient medically screened. [facility] 15:35 Differential diagnosis: closed head injury, laceration, multiple trauma. Data reviewed: [facility] vital signs, nurses notes, radiologic studies, CT scan. I considered the following discharge prescriptions or medication management in the emergency department Medications were administered in the Emergency Department. See MAR. Historians other than the Patient: Daughter/Son: daughter. Care significantly affected by the following chronic conditions: Hypertension. Counseling: I had a detailed discussion with the patient and/or guardian regarding the historical points, exam findings, and any diagnostic results supporting the discharge/admit diagnosis, the need for outpatient follow up, for suture removal in 7-10 days, to return to the emergency department if symptoms worsen or persist or if there are any questions or concerns that arise at home. Response to treatment: the patient's symptoms have markedly improved after treatment. 02/03 14:20 Order name: CT Head C Spine; Complete Time: 15:01 [facility] 02/03 14:20 Order name: Dressing - Wound; Complete Time: 14:42 [facility] 02/03 14:20 Order name: Gloves, Sterile; Complete Time: 14:42 [facility] 02/03 14:20 Order name: Prolene, Sutures; Complete Time: 14:42 [facility] 02/03 14:20 Order name: Setup Suture Tray; Complete Time: 14:42 [facility] Administered Medications: 15:29 Drug: Lidocaine Infiltration (1 %) 5 ml 5 ml Infiltration once; to bedside {Note: adm rs5 to left ear by provider.} Volume: 5 ml; Route: Infiltration; 16:00 Follow up: Response: No adverse reaction rs5 Disposition Summary: 02/04/24 15:34 Discharge Ordered Notes: Location: Home [facility] Problem: new [facility] Symptoms: have improved [facility] Condition: Stable [facility] Diagnosis - Laceration without foreign body of left ear jh7 - Contusion of scalp, initial encounter 7 - Fall on same level, unspecified [facility] Followup: [facility] - With: Private Physician - When: 2 - 3 days - Reason: Recheck today's complaints Discharge Instructions: - Discharge Summary Sheet [facility] - Facial or Scalp Contusion jh7 - Hematoma jh7 - Laceration Care, Adult [facility] Forms: - Medication Reconciliation Form [facility] - Patient Portal Instructions [facility] - Leadership Thank You Letter [facility] Signatures: Dispatcher [employer] Christopher Jacob, RN RN ll1 Lynn Davenport, SECURITY POLICE SEC[employer]ITY [employer] 7 Richar Toscano RN RN rs5 Corrections: (The following items were deleted from the chart) 17:34 13:48 88-year-old female presents to the ER post fall. The patient's states jh7 that when changing position, her feet became tangled, and she slipped. She hit her posterior scalp and her glasses cut her left ear. Has a history of stroke, osteoporosis, hypertension, and an intracranial bleed in October.. jh7
--- NOTE | 2024-02-04 15:35 | ER ---
Nurse's Notes [facility] Name: Jazmine Winchester Age: 88 yrs Sex: Female : 1935 Arrival Date: 02/04/2024 Time: 13:34 Bed 18 Private MD: Diagnosis: Laceration without foreign body of left ear;Contusion of scalp, initial encounter;Fall on same level, unspecified Presentation: 02/03 13:48 Chief complaint: Patient states: Fell 30 min [employer]. Laceration L ear, bleeding ll1 controlled. Hematoma to scalp area. Coronavirus screen: Client denies travel out of the [place] in the last 14 days. At this time, the client does not indicate any symptoms associated with coronavirus-19. Ebola Screen: Patient denies travel to an Ebola-affected area in the 21 days before illness onset. Initial Sepsis Screen: Does the patient meet any 2 criteria? No. Patient's initial sepsis screen is negative. Does the patient have a suspected source of infection? No. Patient's initial sepsis screen is negative. Risk Assessment: Do you want to hurt yourself or someone else? Patient reports no desire to harm self or others. Onset of symptoms was February 04, 2024. 13:48 Method Of Arrival: Wheelchair ll1 13:48 Acuity: FRANCES 3 ll1 Triage Assessment: 13:48 General: Appears uncomfortable, Behavior is calm, cooperative, appropriate for age. ll1 Pain: Complains of pain in left ear Quality of pain is described as aching. Neuro: Reports headache. Derm: Reports laceration L ear. Injury Description: Head injury. Historical: - Allergies: 13:47 No Known Allergies; ll1 - PMHx: 13:47 CVA; Left side; Hypertension; Osteoporosis; ll1 - PSHx: 13:47 brain surgery; ll1 - Immunization history:: Adult Immunizations up to date. - Infectious Disease History:: Denies. - Social history:: Smoking status: Patient denies any tobacco usage or history of. Screenin:46 [facility] ED Fall Risk Assessment (Adult) History of falling in the last 3 months, rs5 including since admission Yes- single mechanical fall (1 pt) Confusion or Disorientation No (0 pts) Intoxicated or Sedated No (0 pts) Impaired Gait Yes (1 pt) Mobility Assist Device Used Yes (1 pt) Altered Elimination No (0 pt) Score/Fall Risk Level 3 or more points = High Risk Oriented to surroundings, Maintained a safe environment, Hourly rounding (assess needs \\T\\ fall precautionary measures) done. Abuse screen: Denies threats or abuse. Nutritional screening: No deficits noted. Tuberculosis screening: No symptoms or risk factors identified. Assessment: 13:46 General: Appears in no apparent distress. uncomfortable, Behavior is calm, cooperative. rs5 Pain: Denies pain. Neuro: Level of Consciousness is awake, alert, obeys commands, Oriented to person, place, time, situation. Cardiovascular: Patient's skin is warm and dry. Rhythm is regular. Respiratory: Airway is patent Respiratory effort is even, unlabored, Respiratory pattern is regular, symmetrical. 13:46 GI: Abdomen is round non-distended, Abd is soft and non tender X 4 quads. : No signs rs5 and/or symptoms were reported regarding the genitourinary system. EENT: No signs and/or symptoms were reported regarding the EENT system. Derm: Skin is pink, warm \\T\\ dry. laceration noted to left ear, no active bleeding noted. pt denies pain at this moment. pt states "I fell earlier and I managed to cut my ear on a corner of a glass table with a sharp corner. I'm not in pain, I had a stroke several years ago and I can't feel the entire left side of my body". Musculoskeletal: Range of motion: intact in all extremities. 14:45 Reassessment: Patient and/or family updated on plan of care and expected duration. Pain rs5 level reassessed. Patient is alert, oriented x 3, equal unlabored respirations, skin warm/dry/pink. 16:01 Reassessment: Provider at bedside . rs5 16:15 Reassessment: Patient and/or family updated on plan of care and expected duration. Pain rs5 level reassessed. Patient is alert, oriented x 3, equal unlabored respirations, skin warm/dry/pink. Patient denies pain at this time. Vital Signs: 13:48 BP 161 / 77; Pulse 61; Resp 16; Temp 97.3; Pulse Ox 100% ; Weight 58.51 kg; Height 5 ll1 ft. 0 in. ; Pain 0/10; 14:55 BP 153 / 84; Pulse 76; Resp 18; Pulse Ox 98% on R/A; rs5 16:01 BP 155 / 81; Pulse 70; Resp 18; Pulse Ox 99% on R/A; rs5 13:48 Body Mass Index 25.19 (58.51 kg, 152.4 cm) ll1 13:48 Pain Scale: Adult ll1 ED Course: 13:35 Patient arrived in ED. ec2 13:49 Triage completed. 1 13:52 Lynn Dav[facility]port FNP [facility] 7 13:52 Mac Glass MD is Attending Physician. [facility] 14:12 Patient placed in an exam room, on a stretcher. ll1 14:12 Patient has correct armband on for positive identification. Bed in low position. Call rs5 light in reach. Side rails up X2. 14:14 Richar Toscano, RN is Primary Nurse. rs5 14:45 CT Head C Spine In Process Unspecified. EDMS 16:00 No provider procedures requiring assistance completed. rs5 16:05 IV discontinued, intact, bleeding controlled, No redness/swelling at site. Pressure rs5 dressing applied. Administered Medications: 15:29 Drug: Lidocaine Infiltration (1 %) 5 ml 5 ml Infiltration once; to bedside {Note: adm rs5 to left ear by provider.} Volume: 5 ml; Route: Infiltration; 16:00 Follow up: Response: No adverse reaction rs5 Medication: 16:09 VIS not applicable for this client. rs5 Outcome: 15:34 Discharge ordered by . [facility] 16:10 Discharged to home via wheelchair, with family, rs5 16:10 Condition: stable 16:10 Discharge instructions given to patient, family, Instructed on discharge instructions, follow up and referral plans. Demonstrated understanding of instructions, follow-up care, 16:16 Patient left the ED. rs5 Signatures: Dispatcher [employer] Christopher Jacob RN RN 1 Lynn Davenport FNP [place] [id number] Richar Toscano, MOOM BARR rs5 Mac Glass MD MD ec2 Corrections: (The following items were deleted from the chart) 14:12 13:47 Arm band placed on Patient placed in an exam room, on a stretcher, 1 ll1
[2024-02-04 16:31] VITALS: BP 161/77; TEMP 97.3; O2SAT 100
== END 2024-02-04 16:16 | disposition home or self-care (01) ==
LOC: ER 13:34
PROC: 0HQ3XZZ Repair Left Ear Skin, External Approach (ICD-10-PCS; principal; 2024-02-04)
DX: S01.312A Laceration without foreign body of left ear, initial encounter (principal); S00.03XA Contusion of scalp, initial encounter; W18.30XA Fall on same level, unspecified, initial encounter
CPT/HCPCS: 70450; 72125; 99283; 12011; J2001

== ENCOUNTER 2025-05-03 18:00 | Emergency (ER) | payer OTHER ==
[2025-05-03] MEDS ORDERED: LIDOCAINE 2% W/EPI 1:200,000 MPF 20 ML VIAL IM ONE (18:25)
--- NOTE | 2025-05-03 18:50 | RAD REPORT ---
EXAM: CT brain without contrast HISTORY: TRAUMA COMPARISON: 02/04/2024 TECHNIQUE: Multiple contiguous axial images were obtained and a CT of the brain without contrast. Sag ittal and coronal reformats were performed. One or more of the following dose reduction techniques were used: Automated exposure control, adjust ment of the mA and/or kV according to patient size, and/or iterative reconstruction. FINDINGS: There is evidence of hyperdense fluid along the right convexity probably a small amount of subdural b lood. There is tracking of high density material noted in the right frontal lobe areas of encephalomalacia tracking into the ventricular system near the foramen of Monro. No midline shift. Sm all amount of hyperdense fluid is seen along the left anteriorly likely a small amount of subdural blood. Significant right-sided gliotic changes are present in the right cerebrum. Evidence of previous right-sided craniotomy. The visualized paranasal sinuses and mastoid air cells a re essentially clear. EXAM: CT of the cervical spine without contrast HISTORY: Neck pain, injury TRAUMA TECHNIQUE: Multiple contiguous axial images were obtained in a CT of the cervical spine without contr ast. Sagittal and coronal reformats were performed. FINDINGS: The vertebral bodies demonstrate normal height and alignment. No evidence of acute fracture or subluxation.. No degenerative changes are present. No prevertebral soft tissue swelling is seen. Facet hypertrophy is present mid cervical levels with exaggerated lordosis. The lung apices are unremarkable. COMBINED IMPRESSION: Areas of acute subdural blood as described as well as intraparenchymal blood extending to the ventric ular system in the right frontal lobe region noted. No significant midline shift. No evidence of acute osseous abnormality of the cervical spine. Exaggerated cervical lordosis. The findings were communicated with Dank Clay NP at 05/03/2025 6:47 PM by telephone.
--- NOTE | 2025-05-03 18:54 | RAD REPORT ---
EXAMINATION: CT MAXILLOFACIAL WITHOUT CONTRAST CLINICAL INDICATION: TRAUMA TECHNIQUE: Axial images were obtained through the facial bones and orbits without intravenous contras t. Sagittal and coronal reconstructions were created from the data. One or more of the following dose reduction techniques were used: Automated exposure control, adjustment of the mA and/or kV accor ding to patient size, and/or iterative reconstruction. Unless otherwise specified, incidental findings do not require dedicated imaging follow-up. COMPARISON: No prior exam. FINDINGS: SOFT TISSUE: No significant abnormalities. BONES: No evidence of fracture, dislocation, or aggressive osseous lesions. No lesion of the visuali zed skull base or calvarium. ORBITS: The globes are intact. No intraorbital hemorrhage or mass. SINUSES: The visualized paranasal sinuses and mastoid air cells are essentially clear. IMPRESSION: No acute facial bone fracture.
--- NOTE | 2025-05-03 19:44 | ER ---
Nurse's Notes [facility] Name: Jazmine Winchester Age: 89 yrs Sex: Female : 1935 Arrival Date: 05/03/2025 Time: 18:00 Bed 2 Private MD: Diagnosis: Traumatic subdural hemorrhage;Facial Laceration/ Laceration without foreign body of cheek and temporomandibular area Presentation: 05/03 18:17 Chief complaint: EMS states: fall from recliner, laceration to left side of head, iw unknown LOC, not on blood thinners, daughter states she checked on pt 30 minutes prior and then found her on the floor, hx of CVA, seizures, on hospice for dementia/Alzheimer's , pt is awake and following commands on arrival to ER. 18:17 Acuity: FRANCES 3 iw 18:19 Coronavirus screen: At this time, the client does not indicate any symptoms associated iw with coronavirus-19. Ebola Screen: No symptoms or risks identified at this time. Initial Sepsis Screen: Does the patient meet any 2 criteria? No. Patient's initial sepsis screen is negative. Does the patient have a suspected source of infection? No. Patient's initial sepsis screen is negative. Risk Assessment: Do you want to hurt yourself or someone else? Patient reports no desire to harm self or others. Onset of symptoms was May 03, 2025. 18:19 Method Of Arrival: EMS: [facility] iw Historical: - Allergies: 18:20 No Known Allergies; iw - PMHx: 18:20 CVA; Left side; Hypertension; Osteoporosis; Alzheimer's disease; Dementia; Seizure; iw - PSHx: 18:20 brain surgery; iw - Immunization history:: Adult Immunizations up to date. - Infectious Disease History:: Denies. - Social history:: Smoking status: Patient denies any tobacco usage or history of. Screenin:23 [facility] ED Fall Risk Assessment (Adult) History of falling in the last 3 months, iw including since admission Yes- single mechanical fall (1 pt) Confusion or Disorientation Yes (5 pts) Intoxicated or Sedated No (0 pts) Impaired Gait Yes (1 pt) Mobility Assist Device Used Yes (1 pt) Altered Elimination Yes (1 pt) Score/Fall Risk Level 3 or more points = High Risk Oriented to surroundings, Maintained a safe environment, Used ambulatory aids as needed (educated on \T\ assisted with). Abuse screen: Denies injuries from another. Nutritional screening: No deficits noted. Tuberculosis screening: No symptoms or risk factors identified. Assessment: 18:21 General: Appears uncomfortable, Behavior is calm, cooperative. Pain: Unable to use pain iw scale. Patient appears to be grimacing. Neuro: Level of Consciousness is awake, obeys commands, Paralysis in left arm(s). Cardiovascular: Patient's skin is warm and dry. Respiratory: Respiratory effort is even, unlabored, Respiratory pattern is regular, symmetrical. GI: Abdomen is flat, non-distended. Derm: Skin is fragile, is thin. Musculoskeletal: Range of motion: limited in left shoulder and left elbow. Injury Description: Laceration sustained to left sabianist is 0.5 to 2.5 cm long, was sustained 30-60 minutes ago. a small amount of bleeding noted at this time. 18:45 Reassessment: Patient appears in no apparent distress at this time. wound cleaned, iw light dressing in place. 19:35 General: Appears in no apparent distress. comfortable, Behavior is calm, cooperative. lg3 Pain: Denies pain. Neuro: Edwards Agitation-Sedation Scale (RASS): 0 - Alert and Calm Level of Consciousness is awake, obeys commands, Oriented to person, place. Cardiovascular: No deficits noted. Denies chest pain, shortness of breath, Capillary refill < 3 seconds Clubbing of nail beds is absent JVD is absent Patient's skin is warm and dry. Respiratory: No deficits noted. Airway is patent Respiratory effort is even, unlabored, Respiratory pattern is regular, symmetrical. GI: No deficits noted. Abdomen is flat, non-distended. : No signs and/or symptoms were reported regarding the genitourinary system. EENT: No deficits noted. Derm: Skin is fragile, is thin, has skin tears on left forearm Wound noted left sabianist. Musculoskeletal: Range of motion: limited in left side. Vital Signs: 18:19 BP 145 / 72; Pulse 60; Resp 18; Temp 97.4; Pulse Ox 100% on R/A; Weight 55.79 kg; iw Height 4 ft. 11 in. ; 19:35 BP 155 / 65; Pulse 59; Resp 16 S; Pulse Ox 98% on R/A; lg3 18:19 Body Mass Index 24.84 (55.79 kg, 149.86 cm) iw ED Course: 18:09 Patient arrived in ED. em1 18:12 Dank Clay FNP-C is [facility]. dr5 18:12 Nick Sorenson MD is Attending Physician. dr5 18:19 Triage completed. iw 18:20 Araceli Sharp, RN is Primary Nurse. iw 18:21 Arm band placed on. iw 18:23 Patient has correct armband on for positive identification. Provided Education on: plan iw of care. Client placed on continuous cardiac and pulse oximetry monitoring. NIBP monitoring applied. 18:31 CT Facial Bones W/O Con In Process Unspecified. EDMS 18:32 Head C Spine Mpr Wo Con In Process Unspecified. EDMS 19:10 Attending Physician role handed off by Nick Sorenson MD sp4 19:10 Adolfo Weeks MD is Attending Physician. sp4 19:35 Wound care: to laceration located on left sabianist was cleaned with soap and water, lg3 Patient tolerated well. Thermoregulation: warm blanket given to patient. 19:41 Assist provider with laceration repair on left sabianist that was 2.5 cm. or less using lg3 sutures. Set up tray. Performed by Dank FREEMAN Patient tolerated well. 20:12 Patient did not have IV access during this emergency room visit. lg3 Administered Medications: 19:44 Drug: Lidocaine-Epinephrine Infiltration -1%: (1:100,000) 20 ml 20 ml Infiltration lg3 once; to bedside Volume: 20 ml; Route: Infiltration; Medication: 20:12 VIS not applicable for this client. lg3 Outcome: 19:44 Discharge ordered by . dr5 20:12 Discharged to home via wheelchair, with family, lg3 20:12 Condition: stable 20:12 Discharge instructions given to patient, choir accompanist, Instructed on discharge instructions, follow up and referral plans. wound care, Demonstrated understanding of instructions, follow-up care, medications, wound care, Prescriptions given X 1, 20:12 Patient left the ED. lg3 Signatures: Dispatcher [employer] EDMS Araceli Sharp RN RN iw Andrew Aguero em1 Fanny Oneill RN RN lg3 Adolfo Weeks MD MD sp4 Dank Clay, TECHNICAL TRAINING MANAGER-C TECHNICAL TRAINING MANAGER-Cdr5 Corrections: (The following items were deleted from the chart) 18:21 18:19 BP 145 / 72; Pulse 60bpm; Resp 18bpm; Pulse Ox 100% RA; Temp 97.4F; iw iw 19:39 19:35 Derm: Skin is fragile, is thin, has skin tears on left forearm lg3 lg3
--- NOTE | 2025-05-03 19:44 | EDPHYS ---
Physician Documentation [facility] Name: Jazmine Winchester Age: 89 yrs Sex: Female : 1935 Arrival Date: 05/03/2025 Time: 18:00 Bed 2 Private MD: ED Physician Adolfo Weeks HPI: 05/03 19:45 This 89 yrs old Female presents to ER via EMS with complaints of Fall Injury, dr5 Head Injury-Adult. 19:45 Details of fall: The patient fell from a height, from an upright position, while dr5 standing. Onset: The symptoms/episode began/occurred acutely. Patient is a 89-year-old female with history of CVA, hypertension, Alzheimer's disease, dementia, seizure, osteoporosis coming in for fall to left side of head after getting out of recliner today. Unknown loss of consciousness. Daughter states that she left her for a second and came back show on the floor. Daughter reports that she is not on blood thinners. Daughter reports that she is on hospice care for dementia.. Historical: - Allergies: 18:20 No Known Allergies; iw - PMHx: 18:20 CVA; Left side; Hypertension; Osteoporosis; Alzheimer's disease; Dementia; Seizure; iw - PSHx: 18:20 brain surgery; iw - Immunization history:: Adult Immunizations up to date. - Infectious Disease History:: Denies. - Social history:: Smoking status: Patient denies any tobacco usage or history of. ROS: 19:45 Constitutional: as per hpi dr5 Exam: 19:45 Constitutional: This is a well developed, well nourished patient who is awake, alert, dr5 and in no acute distress. Head/Face: Normocephalic, traumatic bruising noted to left eye. ENT: Nares patent. No nasal discharge, no septal abnormalities noted. Tympanic membranes are normal and external auditory canals are clear. Oropharynx with no redness, swelling, or masses, exudates, or evidence of obstruction, uvula midline. Mucous membranes moist. Neck: Trachea midline, no thyromegaly or masses palpated, and no cervical lymphadenopathy. Supple, full range of motion without nuchal rigidity, or vertebral point tenderness. No Meningismus. Chest/axilla: Normal chest wall appearance and motion. Nontender with no deformity. No lesions are appreciated. Cardiovascular: Regular rate and rhythm with a normal S1 and S2. Normal PMI, no JVD. No pulse deficits. Respiratory: Lungs have equal breath sounds bilaterally, clear to auscultation. No rales, rhonchi or wheezes noted. No increased work of breathing, no retractions or nasal flaring. Back: No spinal tenderness. No costovertebral tenderness. Full range of motion. Skin: Warm, dry with normal turgor. Normal color with no rashes, no lesions, and no evidence of cellulitis. 2 lacerations noted to left side of eye that's not involved in her eye. MS/ Extremity: Pulses equal, no cyanosis. Neurovascular intact. Full, normal range of motion. Neuro: Awake and alert. Patient had previous CVA with neurological deficits on left side. Daughter states that her neurological exam is consistent with her baseline Vital Signs: 18:19 BP 145 / 72; Pulse 60; Resp 18; Temp 97.4; Pulse Ox 100% on R/A; Weight 55.79 kg; iw Height 4 ft. 11 in. ; 19:35 BP 155 / 65; Pulse 59; Resp 16 S; Pulse Ox 98% on R/A; lg3 18:19 Body Mass Index 24.84 (55.79 kg, 149.86 cm) iw Laceration: 19:45 Wound Repair of 2.5cm ( 1.0in ) subcutaneous laceration to left mu-ism. Linear shaped.. dr5 Distal neuro/vascular/tendon intact. Anesthesia: Local anesthetic administered with 1 mls of 1% lidocaine w/ Epi. Wound prep: Moderate cleansing by me. Skin closed with 3 5-0 Chromic Gut using simple sutures and sterile technique. Dressed with non-adherent dressing. Patient tolerated well. 19:45 Wound Repair of .5cm ( 0.2in ) subcutaneous laceration to left mu-ism. Linear shaped.. dr5 Distal neuro/vascular/tendon intact. Anesthesia: Local anesthetic administered with 1 mls of 1% lidocaine w/ Epi. Wound prep: Simple cleansing by me. Skin closed with 1 5-0 Chromic Gut using simple sutures and sterile technique. Dressed with non-adherent dressing. Patient tolerated well. MDM: 18:12 Medical Screening Exam initiated dr5 19:45 Differential diagnosis: abrasion, closed head injury, contusion, laceration, sprain, dr5 strain. Data reviewed: vital signs, nurses notes, EMS record, radiologic studies, CT scan, I have discussed the patient's presentation/case with the attending Emergency Department Physician;. Consideration of Admission/Observation Escalation of care including admission/observation considered. Considered admission given patient had critical findings and CT scan. Dr. Weeks discussed case with patient daughter and her at length.. I considered the following discharge prescriptions or medication management in the emergency department Medications were administered in the Emergency Department. See MAR. Discussion of test interpretation with radiology: I had a discussion with radiology regarding a test interpretation. Verbal report given by Dr. Sims who reported areas of acute subdural blood as well as intraparencymal blood extending to the ventricular system right frontal lobe region. Historians other than the Patient: EMS: [place]. Daughter/Son: Daughter and Son in law. Care significantly affected by the following chronic conditions: Hypertension, Osteoporosis, CVA, Alzheimer's disease, dementia, seizure disorder. Care significantly affected by the following Social Determinants of Health: Poor access to healthcare and/or lack of insurance, Poor access to transportation, Problems related to employment. Counseling: I had a detailed discussion with the patient and/or guardian regarding the historical points, exam findings, and any diagnostic results supporting the discharge/admit diagnosis, the presence of at least one elevated blood pressure reading (>120/80) during this emergency department visit, radiology results, the need for outpatient follow up, for definitive care, a neurologist, to return to the emergency department if symptoms worsen or persist or if there are any questions or concerns that arise at home. Special discussion: Based on the patient's history, exam and DX evaluation, there is no indication for emergent intervention or inpatient TX. It is understood by the patient/guardian that if the SXs persist or worsen they need to return immediately for re-evaluation. ED course: Daughter and family decided not to transfer patient to [facility]. They will take her home for comfort measures. Laceration repair completed x 2. Will give Keflex for infection prevention. All question answered. Strict ER precautions given for any other concerns. All question answered.. 05/03 18:29 Order name: CT Facial Bones W/O Con; Complete Time: 18:57 dr5 05/03 18:32 Order name: Head C Spine Mpr Wo Con; Complete Time: 18:57 EDMS 05/03 18:23 Order name: Dressing - Wound; Complete Time: 18:30 dr5 05/03 18:23 Order name: Gloves, Sterile; Complete Time: 19:41 dr5 05/03 18:23 Order name: Prolene, Sutures; Complete Time: 19:41 dr5 05/03 18:23 Order name: Setup Suture Tray; Complete Time: 18:30 dr5 Administered Medications: 19:44 Drug: Lidocaine-Epinephrine Infiltration -1%: (1:100,000) 20 ml 20 ml Infiltration lg3 once; to bedside Volume: 20 ml; Route: Infiltration; Disposition: 05/04 01:08 Co-signature as Attending Physician, Adolfo Weeks MD I agree with the assessment sp4 and plan of care. I reviewed the patient's care provided by the Advanced Practice Provider and agree with the diagnosis and treatment plan. Disposition Summary: 05/03/25 19:44 Discharge Ordered Notes: Location: Home dr5 Condition: Stable dr5 Diagnosis - Traumatic subdural hemorrhage dr5 - Facial Laceration/ Laceration without foreign body of cheek and temporomandibular dr5 area Followup: dr5 - With: Emergency Department - When: As needed - Reason: Worsening of condition Followup: dr5 - With: Private Physician - When: 1 - 2 days - Reason: Recheck today's complaints, Continuance of care, Re-evaluation by your physician Discharge Instructions: - Discharge Summary Sheet dr5 - Facial Laceration dr5 - Subdural Hematoma dr5 Forms: - Medication Reconciliation Form dr5 - Antibiotic Education dr5 - Patient Portal Instructions dr5 - Leadership Thank You Letter dr5 Prescriptions: - Cephalexin 500 mg Oral Capsule - take 1 capsule ORAL route every 12 hours for 10 days; 20 capsule; Refills: 0, dr5 Product Selection Permitted Signatures: Dispatcher [employer] EDAraceli Tanner, RN Fanny Loomis RN RN lg3 Potepalov, Sergey, MD MD sp4 Dank Clay, TAMMY-C CANDLE MOLDER-Cdr5 Corrections: (The following items were deleted from the chart) 05/03 18:29 18:29 Facial Bones W/ MPR+CT.RAD.BRZ ordered. EDMS EDMS 18:32 18:22 Head Brain Wo Cont+CT.RAD.BRZ ordered. EDMS EDMS
[2025-05-03 20:20] VITALS: BP 145/72; TEMP 97.4; O2SAT 100
== END 2025-05-03 20:12 | disposition home or self-care (01) ==
LOC: ER 18:00
DX: S06.5X0A Traumatic subdural hemorrhage without loss of consciousness, initial encounter (principal); S01.81XA Laceration without foreign body of other part of head, initial encounter; W18.30XA Fall on same level, unspecified, initial encounter; G30.9 Alzheimer's disease, unspecified; F02.80 Dementia in other diseases classified elsewhere, unspecified severity, without behavioral disturbance, psychotic disturbance, mood disturbance, and anxiety
CPT/HCPCS: 12001; 12011; 70450; 70486; 72125; 76377; 99284